=== PATIENT | female | born 1995 | race Caucasian/White ===

== ENCOUNTER 2017-02-12 18:46 | Observation (INO) | payer OTHER ==
[2017-02-12] MEDS ORDERED: SODIUM CHLORIDE 0.9% 500 ML IV STA (19:24)
--- NOTE | 2017-02-12 19:40 | ED ---
Chest Pain HPI <Jose Luis Saravia - Last Filed: 02/12/17 21:33> - General Source: patient Mode of arrival: wheelchair Limitations: no limitations <Jesica Morrison - Last Filed: 02/13/17 03:37> - General Chief Complaint: Chest Pain Stated Complaint: chest pain, heavy heartbeat Time Seen by Provider: 02/12/17 19:00 - History of Present Illness Initial Comments: 21-year-old female patient with a history of diabetes mellitus and hypertension with noncompliance presents to emergency department today for complaints of intermittent chest pain. Patient states that today while at work around 5 PM she had an episode of sharp chest pain in the center of her chest, states that it felt like her heart was racing and skipping a beat while the pain was present. She denies any radiation of the pain to her neck, back, or jaw. She states that after that she felt very weak and tired. States that her legs felt like jelly. She states since then she feels like she has been in a fog, and her legs continue to feel weaker than usual. She states that she has had intermittent sharp chest pain since then, worse when taking a deep breath. She states that she felt short of breath during the episode however feels that has resolved. She denies any dizziness or blurred vision. States that she felt like her left arm was more weak than her right arm. She denies any nausea, vomiting, or sweats with this. She states that she has had nasal congestion and drainage for the last few days however denies any cough, fevers, or sore throat. Patient denies any recent rash, abdominal pain, diarrhea, constipation , back pain, numbness, tingling, dizziness, weakness, hematuria, dysuria, urinary urgency, urinary frequency, headache, visual changes, or any other complaints. (Jesica Morrison) - Related Data Home Medications Medication Instructions Recorded Confirmed Ibuprofen [Motrin] 800 mg PO Q6H PRN 10/14/15 02/12/17 Allergies Allergy/AdvReac Type Severity Reaction Status Date / Time No Known Allergies Allergy Verified 02/12/17 22:13 Review of Systems ROS Other: All systems not noted in ROS Statement are negative. <Jose Luis Saravia - Last Filed: 02/12/17 21:33> ROS Other: All systems not noted in ROS Statement are negative. <rGegorio Morrisonina Cher - Last Filed: 02/13/17 03:37> ROS Statement: Those systems with pertinent positive or pertinent negative responses have been documented in the HPI. EKG Findings - EKG Comments: EKG Findings:: EKG obtained at 1858 shows sinus tachycardia with possible left atrial enlargement. Ventricular rate is 111, RI interval is 138, QRS duration is 88, QT 344, QTc 467. No evidence of ST elevation or depression. <PrinceGregorioJesica M - Last Filed: 02/13/17 03:37> Past Medical History Past Medical History: Diabetes Mellitus, Hypertension History of Any Multi-Drug Resistant Organisms: None Reported Past Surgical History: No Surgical Hx Reported Past Psychological History: No Psychological Hx Reported Smoking Status: Never smoker Past Alcohol Use History: None Reported Past Drug Use History: None Reported - Past Family History Mother Additional Family Medical History / Comment(s): Colotis, cirrosis of liver, chrones Father Family Medical History: Hypertension <PrinceJesica M - Last Filed: 02/13/17 03:37> General Exam Limitations: no limitations General appearance: alert, in no apparent distress, other (This is a well- developed morbidly obese female patient in no acute distress. Vital signs upon presentation are temperature 98.7F, pulse 110, respirations 18, blood pressure 206/131, pulse ox 100% on room air.) Eye exam: Present: normal appearance, PERRL, EOMI. Absent: scleral icterus, conjunctival injection, nystagmus, periorbital swelling ENT exam: Present: normal exam, normal oropharynx, mucous membranes moist, TM's normal bilaterally Neck exam: Present: normal inspection. Absent: tenderness, meningismus, lymphadenopathy Respiratory exam: Present: normal lung sounds bilaterally. 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 Walton, who will admit for hospital call. He does recommend cardiology consult. Blood pressure will need to be further controlled. (Jose Luis Saravia) Chest Pain MDM <Jose Luis Saravia - Last Filed: 02/12/17 21:33> <Jesica Morrison - Last Filed: 02/13/17 03:37> - [facility] Radiology: Two-view x-ray of the chest shows a heart and mediastinum are normal. Lungs are clear. Diaphragm is normal. There are chest leads. Impression by Dr. Meade shows normal chest. Medical decision makin-year-old female patient who is noncompliant with her hypertension medications and diabetes medications presents to emergency department today for complaints of chest pain, shortness of breath, and generalized weakness. EKG showed sinus tachycardia. Labs reviewed and were unremarkable other than blood glucose of 204. She also had mildly elevated transaminases. Urinalysis showed a cloudy appearance with 3+ protein, 2+ glucose, 1+ ketones, trace blood, small leukocyte esterase, 8 white blood cells , 19 squamous epithelial cells, few bacteria, and rare mucous, this has been sent for culture. Urine hCG was negative. Urine drug screen was negative. As patient does have risk factors and significantly elevated blood pressure here in the department she will be admitted for observation. My attending Dr. Saravia did speak to Dr. Walton who accepts patient at this time and requests a cardiology consult. We will order Vasotec for elevated blood pressure as needed and monitor blood glucose before meals and at bedtime. (Jesica Morrison) Disposition <Jose Luis Saravia - Last Filed: 02/12/17 21:33> Decision to Admit Reason: Admit from EC Decision Date: 02/12/17 Decision Time: 21:39 <Jesica Morrison - Last Filed: 02/13/17 03:37> Clinical Impression: Chest pain, Hypertension, Uncontrolled diabetes mellitus Disposition: ADMITTED IP TO THIS HOSP Condition: Serious
[2017-02-12 20:01] LABS: Basophils % (A) 1 %; CH 30.2; CHCM 34.3; Eosinophils # (A) 0.1 k/uL (0-0.7); Eosinophils % (A) 2 %; HCT 39.2 % (34.0-46.0); HDW 2.94; HGB 13.5 gm/dL (11.4-16.0); Luc # (Auto) 0.09; Luc % (Auto) 1; Lymphocytes # (A) 2.1 k/uL (1.0-4.8); Lymphocytes % (A) 32 %; MCH 30.4 pg (25.0-35.0); MCHC 34.4 g/dL (31.0-37.0); MCV 88.4 fL (80.0-100.0); Mean Platelet Volume 7.5; Monocytes # (A) 0.3 k/uL (0-1.0); Monocytes % (A) 5 %; Neutrophils # (A) 3.9 k/uL (1.3-7.7); Neutrophils % (A) 60 %; RBC 4.43 m/uL (3.80-5.40); RDW 15.4 % (11.5-15.5); WBC 6.5 k/uL (3.8-10.6); WBC (Perox) 6.41
[2017-02-12 20:09] LABS: Glucose,Whole Blood 197 mg/dL (75-99)
[2017-02-12 20:12] LABS: ALT 59 U/L (9-52); AST 43 U/L (14-36); Alkaline Phosphatase 60 U/L (38-126); Anion Gap 17 mmol/L; Blood Urea Nitrogen 16 mg/dL (7-17); Calcium 10.3 mg/dL (8.4-10.2); Carbon Dioxide 19 mmol/L (22-30); Chloride 100 mmol/L (98-107); Glucose 204 mg/dL (74-99); Magnesium 1.5 mg/dL (1.6-2.3); Non-African American GFR(MDRD) >60 (>60 ml/min/1.73 sqM); Potassium 4.2 mmol/L (3.5-5.1); Sodium 136 mmol/L (137-145); Total Bilirubin 0.3 mg/dL (0.2-1.3); Total Protein 8.1 g/dL (6.3-8.2)
[2017-02-12 20:15] LABS: Partial Thromboplastin Time 23.1 sec (22.0-30.0); Prothrombin Time 9.8 sec (9.0-12.0)
[2017-02-12 20:21] LABS: Appearance,Urine Cloudy (Clear); Bacteria,Urine Few /hpf; Bilirubin,Urine Negative (Negative); Glucose,Urine (UA) 2+ (Negative); Ketones,Urine 1+ (Negative); Leukocyte Esterase,Urine Small (Negative); Mucus,Urine Rare /hpf; Nitrite,Urine Negative (Negative); PH, Urine 5.5 (5.0-8.0); Particle Count 26044; Protein,Urine 3+ (Negative); RBC,Urine 1 /hpf (0-5); Specific Gravity,Urine 1.029 (1.001-1.035); Squamous Epithelial Cell,Urine 19 /hpf (0-4); UA Billing (MACRO vs. MICRO) MICRO; WBC,Urine 8 /hpf (0-5)
[2017-02-12 20:27] LABS: Creatine Kinase MB 2.3 ng/mL (0.0-2.4); Troponin I 0.012 ng/mL (0.000-0.034)
--- NOTE | 2017-02-12 20:52 | XR ---
EXAMINATION TYPE: XR chest 2V DATE OF EXAM: 02/12/2017 COMPARISON: NONE HISTORY: Chest pain TECHNIQUE: Frontal and lateral views of the chest are obtained. FINDINGS: Heart and mediastinum are normal. Lungs are clear. Diaphragm is normal. There are chest le ads. IMPRESSION: Normal chest
[2017-02-12] MEDS ORDERED: LABETALOL 5 MG/ML VIAL MDV IVP STA (21:07)
[2017-02-12] MEDS ORDERED: NITROGLYCERIN OINT 1 INCH/GM PACKET TOPICAL STA (21:27)
[2017-02-12] MEDS ORDERED: NALOXONE 0.4 MG/ML 1 ML VIAL IV PRN (21:32)
[2017-02-12] MEDS ORDERED: ENALAPRILAT 1.25 MG/ML 1 ML VIAL IVP PRN (21:39)
[2017-02-12 22:26] VITALS: BMI 53.4
[2017-02-13] MEDS: ACETAMINOPHEN TAB 325 MG TAB PO PRN ×2 (00:21→09:09)
[2017-02-13] MEDS ORDERED: LOSARTAN 50 MG TAB PO SCH (09:00)
[2017-02-13] MEDS ORDERED: MAGNESIUM SULFATE-D5W PMX 1 GM in DEXTROSE/WATER 1 100ML.BAG IVPB ONE (09:00)
--- NOTE | 2017-02-13 10:35 | HP ---
HISTORY AND PHYSICAL CHIEF COMPLAINT: A 21-year-old white female with a history of diabetes mellitus, hypertension, noncompliance presents to the emergency room with intermittent chest pain. She has some chest pain in the center of her chest, heart races, skipping a beat , very weak and tired, legs felt like jelly. She has been confused and in a fog since this time. She has came to the ER to rule out myocardial infarction or PE. Denied any dysuria, frequency, urgency, hesitancy, headaches, visual changes, etc. HOME MEDICINES: Include ibuprofen. ALLERGIES: No known drug allergies Fourteen-point review of systems negative except for mentioned in HPI. EKG is sinus rhythm. PAST MEDICAL HISTORY: Diabetes mellitus, hypertension. SOCIAL HISTORY: No smoking. No illicit drugs. FAMILY HISTORY: Mother with cirrhosis of liver, colitis. Father with hypertension. PHYSICAL EXAM: Pulse rate 104 to 110, temp 98.7, respiratory 18 to 22, blood pressures were 200s over 100s in the ER, temp 97.8, pulse is 92, respiratory rate 18. ASSESSMENT: Hypertension acceleration, uncontrolled. Cardiology consult for this. Will rule out myocardial infarction. She has diabetes mellitus, untreated. Would look at that. Urine drug screen was negative. test was negative. Vasotec for elevated hypertension. Please see further orders. MMODL / IJN: [id number] /
[2017-02-13 10:57] LABS: ALT 49 U/L (9-52); AST 37 U/L (14-36); Alkaline Phosphatase 47 U/L (38-126); Anion Gap 17 mmol/L; Blood Urea Nitrogen 13 mg/dL (7-17); Calcium 9.5 mg/dL (8.4-10.2); Carbon Dioxide 18 mmol/L (22-30); Chloride 99 mmol/L (98-107); Glucose 351 mg/dL (74-99); Non-African American GFR(MDRD) >60 (>60 ml/min/1.73 sqM); Potassium 4.3 mmol/L (3.5-5.1); Sodium 134 mmol/L (137-145); Total Bilirubin 0.4 mg/dL (0.2-1.3)
[2017-02-13 11:46] VITALS: RESP 18; TEMP 97.9
[2017-02-13 12:01] LABS: Glucose,Whole Blood 275 mg/dL (75-99)
--- NOTE | 2017-02-13 15:41 | CONS ---
CONSULTATION Mariya Nunez is a 21-year-old lady who carries a diagnosis of type 2 diabetes mellitus, but has not been compliant with medications, does not see her physician on a regular basis. She works in the [employer] and yesterday she was working and it was quite busy and then she had a sudden feeling of some numbness in her left hand and she felt weak, then she felt short-winded, felt exhausted and then did not have any strength in her legs and then came into the hospital. She is resting comfortably at the time of my evaluation. She denies any chest pain. Her blood sugars have been elevated, but there was another issue when she came in. She was quite hypertensive and the blood pressure has improved remarkably. She is resting comfortably without symptoms. Denies any chest pain, shortness of breath, or palpitation. Her feeling of numbness in the left arm and lack of strength has all resolved completely. She feels quite well at this time. PAST MEDICAL HISTORY: 1. Obesity. 2. Type 2 diabetes. 3. History of noncompliance. 4. She is not a smoker and she and does not consume alcohol or use any recreational drugs. MEDICATIONS: At home, she has not taken any metformin even though she was prescribed. She takes ibuprofen p.r.n. ALLERGIES: None. REVIEW OF SYSTEMS: Unremarkable, other than the above-mentioned facts. EKG revealed a sinus mechanism with sinus tachycardia. No acute changes. Left atrial abnormality was noted. LABORATORY DATA: Revealed normal troponins. PHYSICAL EXAMINATION: Blood pressure is 160/84, pulse rate is 70 per minute, regular. HEENT: Unremarkable. Fundus was not examined by me. Neck is supple. There is no JVD. I do not hear a carotid bruit. Heart exam reveals S1, S2 heard normally without a rub, murmur or gallop. Lungs are clear. Abdomen is soft, nontender. Lower extremities reveal normal pulses, no edema. Central nervous system is normal. EKG revealed a sinus mechanism, no acute changes. Left atrial abnormality noted. IMPRESSION: 1. Uncontrolled hypertension. 2. Diabetes. 3. Obesity. 4. Nondescript atypical left arm numbness that has resolved. RECOMMENDATION: I am recommending that we initiate her on losartan 50 mg daily. Advised to supplement Mg intravenously. Advised low-salt diet and I advised her to be compliant with medications. Based on how she does and if her blood pressure control has improved, she can potentially be discharged later on today. Thank you very much for the consult. ORTIZ / AMIN: [id number] / CASSANDRA
[2017-02-13 15:49] VITALS: BP 185/101; PULSE 94
--- NOTE | 2017-02-13 17:32 | DS ---
DISCHARGE SUMMARY DISCHARGE DIAGNOSES: 1. Diabetes mellitus. 2. Hypertension acceleration. 3. Atypical chest pain. DISCHARGE MEDICATIONS: 1. Metformin 500 one daily. 2. Cozaar 50 mg 1 daily. CONDITION: Stable. PROGNOSIS: Guarded. Ambulate as tolerated. HOSPITAL COURSE OF EVENTS: A 21-year-old, white female, with chest pain, hypertension, uncontrolled diabetes mellitus, is admitted. Diabetic control is discussed with the patient as well as hypertension control. She is cleared by [facility] for any cardiac involvement and can follow up as outpatient with the following medications as mentioned above being given. CONDITION: Stable. PROGNOSIS: Guarded. Ambulate as tolerated. MMODL / IJN: [id number] /
== END 2017-02-13 15:56 | disposition home or self-care (01) ==
LOC: EC 18:46 → 3OBS 21:44
PROVIDERS: ADMIT Family Medicine; ATTEND Family Medicine
DX: E11.65 Type 2 diabetes mellitus with hyperglycemia (principal); I10 Essential (primary) hypertension; R07.89 Other chest pain; R20.0 Anesthesia of skin; R41.0 Disorientation, unspecified; R00.0 Tachycardia, unspecified; R06.02 Shortness of breath; R74.0 Nonspecific elevation of levels of transaminase and lactic acid dehydrogenase [LDH]; R53.1 Weakness; R09.81 Nasal congestion; E66.01 Morbid (severe) obesity due to excess calories; Z68.43 Body mass index [BMI] 50.0-59.9, adult; Z91.14 Patient's other noncompliance with medication regimen
CPT/HCPCS: 99285; 96361 ×3; 96374; 96375; 36415; 93005; 85379; 80053 ×2; 84443; 82550; 82553; 83735; 84484; 85025; 85610; 85730; 81001; 81025; 80306; 87086; 83036; 71020; G0378 ×2; J3475

== ENCOUNTER 2017-03-03 | Emergency (ER) | payer OTHER ==
[2017-03-03] MEDS ORDERED: KETOROLAC 60 MG/2 ML VIAL ONE (01:05)
[2017-03-03] MEDS ORDERED: Acetaminophen-Codeine 300-30mg TAB ONE (01:05)
--- NOTE | 2017-03-03 06:27 | XR ---
EXAM: XR Lumbar Spine, 5 Views CLINICAL HISTORY: Pain. TECHNIQUE: Frontal, lateral and oblique views of the lumbar spine. COMPARISON: No relevant prior studies available. FINDINGS: Vertebrae: No evidence of acute fracture of the lumbar spine. Normal lumbar alignment. Disc spaces: No acute findings. No significant narrowing. Soft tissues: Unremarkable as visualized. IMPRESSION: No evidence of acute fracture or malalignment of the lumbar spine.
== END 2017-03-03 02:23 | disposition home or self-care (01) ==
LOC: EC
DX: S30.0XXA Contusion of lower back and pelvis, initial encounter (principal); E11.9 Type 2 diabetes mellitus without complications; I10 Essential (primary) hypertension; Z79.84 Long term (current) use of oral hypoglycemic drugs; Z79.899 Other long term (current) drug therapy; W22.8XXA Striking against or struck by other objects, initial encounter
CPT/HCPCS: 72110; 96372; 99283

== ENCOUNTER 2017-03-05 02:20 | Emergency (ER) | payer OTHER ==
[2017-03-05 02:27] VITALS: BP 172/105; PULSE 93; RESP 16; TEMP 100.3
[2017-03-05] MEDS ORDERED: CYCLOBENZAPRINE 10MG STARTER 3 TAB BTL PO STA (02:37)
--- NOTE | 2017-03-05 02:37 | ED ---
General Adult HPI - General Chief complaint: Back Pain/Injury Stated complaint: back pain Time Seen by Provider: 03/05/17 02:27 Source: patient, RN notes reviewed Mode of arrival: ambulatory Limitations: no limitations - History of Present Illness Initial comments: 21-year-old female presents emergency Department chief complaint of back pain. She had a fall a few days ago she was admitted and x-ray she's been taking Tylenol threes however they have been hurting her abdomen. She states it just feels like she's cramping and tightness in her back. Patient states that she did not have any new injury. He denies any fever chills cough cold symptoms with this. They were concerned due to the continued pain she thought maybe there is something else that would help her feel better. The chest pain she had when she first came in. She states it almost feels like there is a tightness in her back and when she stretches it feels as if it's pulling. Patient denies any recent fever, chills, shortness of breath, chest pain, abdominal pain, nausea vomiting, numbness or tingling, dysuria or hematuria, constipation or diarrhea, headaches or visual changes, or any other current symptoms. - Related Data Home Medications Medication Instructions Recorded Confirmed Ibuprofen [Motrin] 800 mg PO Q6H PRN 10/14/15 02/12/17 Allergies Allergy/AdvReac Type Severity Reaction Status Date / Time No Known Allergies Allergy Verified 03/05/17 02:27 Review of Systems ROS Statement: Those systems with pertinent positive or pertinent negative responses have been documented in the HPI. ROS Other: All systems not noted in ROS Statement are negative. Past Medical History Past Medical History: Diabetes Mellitus, Hypertension History of Any Multi-Drug Resistant Organisms: None Reported Past Surgical History: No Surgical Hx Reported Additional Past Surgical History / Comment(s): Adnoids removed Past Anesthesia/Blood Transfusion Reactions: No Reported Reaction Past Psychological History: No Psychological Hx Reported Smoking Status: Never smoker Past Alcohol Use History: None Reported Past Drug Use History: None Reported - Past Family History Mother Additional Family Medical History / Comment(s): Colotis, cirrosis of liver, chrones Father Family Medical History: Hypertension General Exam - General Exam Comments Initial Comments: General: The patient is awake and alert, in no distress, and does not appear acutely ill. Eye: Pupils are equal, round and reactive to light. Ears, nose, mouth and throat: There are moist mucous membranes. Neck: The neck is supple, there is no tenderness. Cardiovascular: There is a regular rate and rhythm. No murmur, rub or gallop is appreciated. Respiratory: Lungs are clear to auscultation, respirations are non-labored, breath sounds are equal. No wheezes, stridor, rales, or rhonchi. Gastrointestinal: Soft, non-distended, non-tender abdomen without masses or organomegaly noted. There is no rebound or guarding present. No CVA tenderness. Bowel sounds are unremarkable. Back: There is no tenderness to palpation in the midline. There is no obvious deformity. No rashes noted. Musculoskeletal: Normal ROM, no tenderness, There is no pedal edema. There is no calf tenderness or swelling. Sensation intact. Pulses equal bilaterally 2+. Neurological: CN II-XII intact, There are no obvious motor or sensory deficits. Coordination appears grossly intact. Speech is normal. Skin: Skin is warm and dry and no rashes or lesions are noted. Psychiatric: Cooperative, appropriate mood & affect, normal judgment. Limitations: no limitations Course Vital Signs 03/05/17 02:24 Temperature 100.3 F H Pulse Rate 93 Respiratory 16 Rate Blood Pressure 172/105 O2 Sat by Pulse 98 Oximetry Medical Decision Making - Medical Decision Making 21-year-old female presents emergency Department chief complaint of lumbar strain. This time with the patient muscle relaxers and we discussed exercises for home. We discussed follow-up return for hours all questions. Patient stated that she understood all questions have been answered. Patient will be discharged. Disposition Clinical Impression: Lumbar strain Disposition: HOME SELF-CARE Condition: Stable Instructions: Lower Back Exercises (ED), Low Back Strain (ED) Additional Instructions: Please use medication as discussed. Please follow up with family doctor if symptoms have not improved over the next two days. Please return to the emergency room if your symptoms increase or worsen or for any other concerns. Referrals: Yessenia Mustafa MD [Primary Care Provider] - 1-2 days Time of Disposition: 02:37
== END 2017-03-05 03:08 | disposition home or self-care (01) ==
LOC: EC 02:20
DX: S39.012A Strain of muscle, fascia and tendon of lower back, initial encounter (principal); W19.XXXA Unspecified fall, initial encounter; Y92.254 Theater (live) as the place of occurrence of the external cause
CPT/HCPCS: 99283

== ENCOUNTER 2018-04-23 18:15 | Emergency (ER) | payer OTHER ==
[2018-04-23] MEDS ORDERED: SODIUM CHLORIDE 0.9% 1,000 ML IV ONE (19:25)
[2018-04-23] MEDS ORDERED: LABETALOL 5 MG/ML VIAL MDV IVP STA ×2 (19:26→20:16)
--- NOTE | 2018-04-23 19:31 | ED ---
Female Urogenital HPI - General Source: patient Mode of arrival: ambulatory Limitations: no limitations <Jesica Morrison - Last Filed: 04/24/18 01:11> <Kary Kelly - Last Filed: 04/26/18 09:08> - General Chief complaint: Vaginal Bleeding Stated complaint: 6 wks preg/vaginal bleeding Time Seen by Provider: 04/23/18 19:09 - History of Present Illness Initial comments: 22-year-old female patient with past medical history significant for diabetes and high blood pressure, who is approximately 6 weeks presents to the emergency department today for evaluation of vaginal bleeding. Patient states the bleeding started this morning with small amounts of dark brown blood. Patient states that throughout the day it has increased to light pink in color with small blood clots. She denies any abdominal cramping or low back pain. She is . Has been receiving care at the [facility]. States she did have ultrasound on showing an intrauterine yolk sac. She denies any hematuria, dysuria, urinary frequency, urinary urgency. States she has been having some nausea but no vomiting. Patient states she did stop taking her blood pressure medication because she was unsure if it was safe in . Patient denies any recent rash, fever, chills, shortness breath, chest pain, diarrhea, constipation, back pain, numbness, tingling, dizziness, weakness, headache, visual changes, or any other complaints. (Jesica Morrison) - Related Data Home Medications Medication Instructions Recorded Confirmed metFORMIN HCL [Glucophage] 1,000 mg PO BID 04/23/18 04/23/18 Previous Rx's Medication Instructions Recorded Cephalexin [Keflex] 500 mg PO Q6H #28 cap 04/23/18 Metoprolol Tartrate [Lopressor] 25 mg PO DAILY #30 tablet 04/23/18 Allergies Allergy/AdvReac Type Severity Reaction Status Date / Time No Known Allergies Allergy Verified 04/23/18 19:27 Review of Systems ROS Other: All systems not noted in ROS Statement are negative. <Jesica Morrison - Last Filed: 04/24/18 01:11> ROS Other: All systems not noted in ROS Statement are negative. <Kary Kelly - Last Filed: 04/26/18 09:08> ROS Statement: Those systems with pertinent positive or pertinent negative responses have been documented in the HPI. Past Medical History Past Medical History: Diabetes Mellitus, Hypertension History of Any Multi-Drug Resistant Organisms: None Reported Past Surgical History: No Surgical Hx Reported Additional Past Surgical History / Comment(s): Adnoids removed Past Anesthesia/Blood Transfusion Reactions: No Reported Reaction Past Psychological History: No Psychological Hx Reported Smoking Status: Never smoker Past Alcohol Use History: None Reported Past Drug Use History: None Reported - Past Family History Mother Additional Family Medical History / Comment(s): Colotis, cirrosis of liver, chrones Father Family Medical History: Hypertension <Jesica Morrison M - Last Filed: 04/24/18 01:11> General Exam Limitations: no limitations General appearance: alert, in no apparent distress, other (Social well-developed , well-nourished adult female patient in no acute distress. Vital signs upon presentation are temperature 98.5F, pulse 101, respirations 18, blood pressure 185/106, pulse ox 98% on room air.) ENT exam: Present: normal exam, normal oropharynx, mucous membranes moist Respiratory exam: Present: normal lung sounds bilaterally. Absent: respiratory distress, wheezes, rales, rhonchi, stridor Cardiovascular Exam: Present: regular rate, normal rhythm, normal heart sounds. Absent: systolic murmur, diastolic murmur, rubs, gallop, clicks GI/Abdominal exam: Present: soft, normal bowel sounds. Absent: distended, tenderness, guarding, rebound, rigid External exam: Present: normal external exam Speculum exam: Present: vaginal bleeding (There is presence of dark red vaginal bleeding, mild, no clots), other (Cervical os is closed) By manual exam: Present: normal by manual exam Neurological exam: Present: alert, oriented X3, CN II-XII intact Psychiatric exam: Present: normal affect, normal mood Skin exam: Present: warm, dry, intact, normal color. Absent: rash <Jesica Morrison M - Last Filed: 04/24/18 01:11> Vital Signs 04/23/18 04/23/18 04/23/18 18:44 20:20 21:13 Temperature 98.5 F Pulse Rate 101 H 95 95 Respiratory 18 20 18 Rate Blood Pressure 185/106 170/108 152/98 O2 Sat by Pulse 98 97 97 Oximetry 04/23/18 21:50 Temperature 97.8 F Pulse Rate 94 Respiratory 18 Rate Blood Pressure 151/96 O2 Sat by Pulse 96 Oximetry Medical Decision Making - Lab Data Result diagrams: 04/23/18 20:00 04/23/18 20:00 - Radiology Data Radiology results: report reviewed <Jesica Morrison - Last Filed: 04/24/18 01:11> - Lab Data Result diagrams: 04/23/18 20:00 04/23/18 20:00 <Kary Kelly - Last Filed: 04/26/18 09:08> - Medical Decision Making 22-year-old female patient presents to the emergency department today for evaluation of vaginal bleeding. Physical examination did reveal small amount of dark red bleeding on pelvic exam, cervical os closed. Labs reviewed and did reveal HCG level is 5361, urine shows a cloudy appearance with 2+ protein, 1+ ketones, large amount of blood, 11 white blood cells, greater than 182 red blood cells, 10 squamous epithelial cells, occasional bacteria, rare mucous, rare yeast. Ultrasound did show a viable intrauterine measuring 6 weeks 3 days with a heart rate of 152. I did discuss possibility of threatened miscarriage with the patient. Patient was discharged home at this time to follow-up with the [facility] for recheck as soon as possible. Return parameters were discussed in detail. She verbalizes understanding and agrees with this plan. (Jesica Morrison) I was available for consultation in the emergency department. The history and physical exam were done by the midlevel provider. I was consulted for this patient's care. I reviewed the case with the midlevel provider and based on their presentation of the patient, I agree with the assessment, medical decision making and plan of care as documented. (Kary Kelly) - Lab Data Lab Results 04/23/18 04/23/18 04/23/18 Range/Units 20:00 20:00 20:00 WBC 8.9 (3.8-10.6) k/uL RBC 4.54 (3.80-5.40) m/uL Hgb 13.4 (11.4-16.0) gm/dL Hct 40.8 (34.0-46.0) % MCV 89.8 (80.0-100.0) fL MCH 29.5 (25.0-35.0) pg MCHC 32.8 (31.0-37.0) g/dL RDW 15.7 H (11.5-15.5) % Plt Count 272 (150-450) k/uL Neutrophils % 65 % Lymphocytes % 28 % Monocytes % 4 % Eosinophils % 2 % Basophils % 0 % Neutrophils # 5.8 (1.3-7.7) k/uL Lymphocytes # 2.5 (1.0-4.8) k/uL Monocytes # 0.3 (0-1.0) k/uL Eosinophils # 0.1 (0-0.7) k/uL Basophils # 0.0 (0-0.2) k/uL PT (9.0-12.0) sec INR (<1.2) APTT (22.0-30.0) sec Sodium 136 L (137-145) mmol/L Potassium 4.3 (3.5-5.1) mmol/L Chloride 103 (98-107) mmol/L Carbon Dioxide 19 L (22-30) mmol/L Anion Gap 14 mmol/L BUN 11 (7-17) mg/dL Creatinine 0.46 L (0.52-1.04) mg/dL Est GFR (CKD-EPI)AfAm >90 (>60 ml/min/1.73 sqM) Est GFR (CKD-EPI)NonAf >90 (>60 ml/min/1.73 sqM) Glucose 125 H (74-99) mg/dL Calcium 9.9 (8.4-10.2) mg/dL Total Bilirubin 0.5 (0.2-1.3) mg/dL AST 36 (14-36) U/L ALT 43 (9-52) U/L Alkaline Phosphatase 45 (38-126) U/L Total Protein 7.4 (6.3-8.2) g/dL Albumin 4.3 (3.5-5.0) g/dL HCG, Quant 5361.5 mIU/mL Urine Color Urine Appearance (Clear) Urine pH (5.0-8.0) Ur Specific Walden (1.001-1.035) Urine Protein (Negative) Urine Glucose (UA) (Negative) Urine Ketones (Negative) Urine Blood (Negative) Urine Nitrite (Negative) Urine Bilirubin (Negative) Urine Urobilinogen (<2.0) mg/dL Ur Leukocyte Esterase (Negative) Urine RBC (0-5) /hpf Urine WBC (0-5) /hpf Ur Squamous Epith Cells (0-4) /hpf Urine Bacteria (None) /hpf Urine Mucus (None) /hpf Urine Yeast (Budding) (None) /hpf Blood Type A Positive Blood Type Recheck 04/23/18 04/23/18 Range/Units 20:00 20:00 WBC (3.8-10.6) k/uL RBC (3.80-5.40) m/uL Hgb (11.4-16.0) gm/dL Hct (34.0-46.0) % MCV (80.0-100.0) fL MCH (25.0-35.0) pg MCHC (31.0-37.0) g/dL RDW (11.5-15.5) % Plt Count (150-450) k/uL Neutrophils % % Lymphocytes % % Monocytes % % Eosinophils % % Basophils % % Neutrophils # (1.3-7.7) k/uL Lymphocytes # (1.0-4.8) k/uL Monocytes # (0-1.0) k/uL Eosinophils # (0-0.7) k/uL Basophils # (0-0.2) k/uL PT 9.4 (9.0-12.0) sec INR 0.8 (<1.2) APTT 22.1 (22.0-30.0) sec Sodium (137-145) mmol/L Potassium (3.5-5.1) mmol/L Chloride (98-107) mmol/L Carbon Dioxide (22-30) mmol/L Anion Gap mmol/L BUN (7-17) mg/dL Creatinine (0.52-1.04) mg/dL Est GFR (CKD-EPI)AfAm (>60 ml/min/1.73 sqM) Est GFR (CKD-EPI)NonAf (>60 ml/min/1.73 sqM) Glucose (74-99) mg/dL Calcium (8.4-10.2) mg/dL Total Bilirubin (0.2-1.3) mg/dL AST (14-36) U/L ALT (9-52) U/L Alkaline Phosphatase (38-126) U/L Total Protein (6.3-8.2) g/dL Albumin (3.5-5.0) g/dL HCG, Quant mIU/mL Urine Color Light Red Urine Appearance Cloudy H (Clear) Urine pH 6.0 (5.0-8.0) Ur Specific [place] 1.024 (1.001-1.035) Urine Protein 2+ H (Negative) Urine Glucose (UA) Negative (Negative) Urine Ketones 1+ H (Negative) Urine Blood Large H (Negative) Urine Nitrite Negative (Negative) Urine Bilirubin Negative (Negative) Urine Urobilinogen <2.0 (<2.0) mg/dL Ur Leukocyte Esterase Negative (Negative) Urine RBC >182 H (0-5) /hpf Urine WBC 11 H (0-5) /hpf Ur Squamous Epith Cells 10 H (0-4) /hpf Urine Bacteria Occasional H (None) /hpf Urine Mucus Rare H (None) /hpf Urine Yeast (Budding) Rare H (None) /hpf Blood Type Blood Type Recheck - Radiology Data Transvaginal ultrasound of the fetus was obtained. Report was reviewed in its entirety. Impression by Dr. Meade shows ultrasound gestational age of 6 weeks 3 days. No complicating process seen. Heart rate 152, rhythm is regular. This is a viable intrauterine . (Jesica Morrison) Disposition Is patient prescribed a controlled substance at d/c from ED?: No Time of Disposition: 21:40 <Jesica Morrison - Last Filed: 04/24/18 01:11> <Kary Kelly - Last Filed: 04/26/18 09:08> Clinical Impression: Threatened miscarriage, Vaginal bleeding during , Hypertension, Asymptomatic bacteriuria Disposition: HOME SELF-CARE Condition: Good Instructions: Threatened Miscarriage (ED), First Trimester Vaginal Bleed (ED), Urinary Tract Infection in (ED) Additional Instructions: Increase fluids. Take medications as directed. Follow-up with your primary care physician for further evaluation. Blood pressure. Follow-up with [facility] for recheck as soon as possible. Return to the emergency department immediately for any new, worsening, or concerning symptoms. Prescriptions: Cephalexin [Keflex] 500 mg PO Q6H #28 cap Metoprolol Tartrate [Lopressor] 25 mg PO DAILY #30 tablet Referrals: Yessenia Mustafa MD [Primary Care Provider] - 1-2 days
[2018-04-23] MEDS ORDERED: LABETALOL SYRINGE 5 MG/ML IVP STA (20:22)
[2018-04-23 20:36] LABS: Appearance,Urine Cloudy (Clear); Bacteria,Urine Occasional /hpf; Bilirubin,Urine Negative (Negative); Blood,Urine Large (Negative); Budding Yeast,Urine Rare /hpf; Color,Urine Light Red; Glucose,Urine (UA) Negative (Negative); Ketones,Urine 1+ (Negative); Leukocyte Esterase,Urine Negative (Negative); Mucus,Urine Rare /hpf; Nitrite,Urine Negative (Negative); Protein,Urine 2+ (Negative); RBC,Urine >182 /hpf (0-5); Specific Gravity,Urine 1.024 (1.001-1.035); Squamous Epithelial Cell,Urine 10 /hpf (0-4); Urobilinogen,Urine <2.0 mg/dL (<2.0); WBC,Urine 11 /hpf (0-5)
[2018-04-23 20:38] LABS: INR 0.8 (<1.2); Partial Thromboplastin Time 22.1 sec (22.0-30.0); Prothrombin Time 9.4 sec (9.0-12.0)
[2018-04-23 20:45] LABS: Basophils % (A) 0 %; Eosinophils # (A) 0.1 k/uL (0-0.7); Eosinophils % (A) 2 %; HCT 40.8 % (34.0-46.0); HGB 13.4 gm/dL (11.4-16.0); Lymphocytes # (A) 2.5 k/uL (1.0-4.8); Lymphocytes % (A) 28 %; MCH 29.5 pg (25.0-35.0); MCHC 32.8 g/dL (31.0-37.0); MCV 89.8 fL (80.0-100.0); Mean Platelet Volume 6.6; Monocytes # (A) 0.3 k/uL (0-1.0); Monocytes % (A) 4 %; Neutrophils # (A) 5.8 k/uL (1.3-7.7); Neutrophils % (A) 65 %; Platelet Count 272 k/uL (150-450); RBC 4.54 m/uL (3.80-5.40); RDW 15.7 % (11.5-15.5); WBC 8.9 k/uL (3.8-10.6)
--- NOTE | 2018-04-23 20:59 | US ---
EXAMINATION TYPE: Transabdominal DATE OF EXAM: 07/20/17 COMPARISON: NONE CLINICAL HISTORY: Pain. EXAM PERFORMED: Transvaginal (TV) and Transabdominal (TA) EXAM MEASUREMENTS: GESTATIONAL AGE / DATING Physician Established: Not yet established Dates by LMP: LMP unknown Dates by First Scan: No previous this is first scan Dates by Current Scan for: (6 weeks/3 days) EDC: 12/14/2018 MATERNAL ANATOMY Uterus: 7.5 x 5.5 x 6.0 Right Ovary: 3.4 x 2.3 x 2.2cm Left Ovary: obscured by bowel gas Post CDS / Adnexa: wnl Presence of free fluid: no Presence of subchorionic bleed: no GESTATION / SURVEY CRL: 0.6cm ( 6 weeks/3 days) Yolk Sac (normal less than 6mm): 5mm Heart Rate: 152 bpm Rhythm: Normal IUP: Viable IUP Beta HcG (if available): Not available at this time IMPRESSION: Ultrasound gestational age is 6 weeks 3 days. No complicating process seen.
[2018-04-23 21:03] LABS: ALT 43 U/L (9-52); AST 36 U/L (14-36); Albumin 4.3 g/dL (3.5-5.0); Alkaline Phosphatase 45 U/L (38-126); Anion Gap 14 mmol/L; Blood Urea Nitrogen 11 mg/dL (7-17); Calcium 9.9 mg/dL (8.4-10.2); Carbon Dioxide 19 mmol/L (22-30); Chloride 103 mmol/L (98-107); Glucose 125 mg/dL (74-99); Potassium 4.3 mmol/L (3.5-5.1); Sodium 136 mmol/L (137-145); Total Bilirubin 0.5 mg/dL (0.2-1.3); Total Protein 7.4 g/dL (6.3-8.2)
[2018-04-23 21:14] VITALS: RESP 18
[2018-04-23 21:15] LABS: HCG,Quantitative Serum 5361.5 mIU/mL
[2018-04-23 21:58] VITALS: BP 151/96; PULSE 94; TEMP 97.8
== END 2018-04-23 21:50 | disposition home or self-care (01) ==
LOC: EC 18:15
DX: O20.0 Threatened abortion (principal); O10.011 Pre-existing essential hypertension complicating pregnancy, first trimester; O99.89 Other specified diseases and conditions complicating pregnancy, childbirth and the puerperium; R82.71 Bacteriuria; O24.311 Unspecified pre-existing diabetes mellitus in pregnancy, first trimester; Z3A.01 Less than 8 weeks gestation of pregnancy; Z79.84 Long term (current) use of oral hypoglycemic drugs
CPT/HCPCS: 36415; 76801; 76817; 80053; 81001; 84702; 85025; 85610; 85730; 86900; 86901; 87086; 96361; 96374; 99284

== ENCOUNTER 2018-04-28 18:35 | Emergency (ER) | payer OTHER ==
[2018-04-28 19:28] VITALS: TEMP 98.7
[2018-04-28] MEDS ORDERED: SODIUM CHLORIDE 0.9% 1,000 ML IV ONE (20:13)
[2018-04-28 20:30] LABS: Basophils % (A) 0 %; Eosinophils # (A) 0.1 k/uL (0-0.7); Eosinophils % (A) 1 %; HCT 37.1 % (34.0-46.0); HGB 12.8 gm/dL (11.4-16.0); Lymphocytes # (A) 2.5 k/uL (1.0-4.8); Lymphocytes % (A) 28 %; MCH 30.6 pg (25.0-35.0); MCHC 34.4 g/dL (31.0-37.0); MCV 88.8 fL (80.0-100.0); Mean Platelet Volume 6.4; Monocytes # (A) 0.2 k/uL (0-1.0); Monocytes % (A) 3 %; Neutrophils # (A) 5.7 k/uL (1.3-7.7); Neutrophils % (A) 65 %; Platelet Count 255 k/uL (150-450); RBC 4.17 m/uL (3.80-5.40); RDW 15.5 % (11.5-15.5); WBC 8.7 k/uL (3.8-10.6)
[2018-04-28 20:44] LABS: ALT 55 U/L (9-52); AST 48 U/L (14-36); Albumin 4.4 g/dL (3.5-5.0); Alkaline Phosphatase 41 U/L (38-126); Anion Gap 14 mmol/L; Blood Urea Nitrogen 6 mg/dL (7-17); Calcium 9.6 mg/dL (8.4-10.2); Carbon Dioxide 21 mmol/L (22-30); Chloride 104 mmol/L (98-107); Glucose 159 mg/dL (74-99); Potassium 3.9 mmol/L (3.5-5.1); Sodium 139 mmol/L (137-145); Total Bilirubin 0.4 mg/dL (0.2-1.3); Total Protein 7.8 g/dL (6.3-8.2)
--- NOTE | 2018-04-28 20:58 | US ---
EXAMINATION TYPE: Transabdominal DATE OF EXAM: 07/20/17 COMPARISON: NONE CLINICAL HISTORY: pain. Bleeding. EXAM PERFORMED: Transvaginal (TV) and Transabdominal (TA) EXAM MEASUREMENTS: GESTATIONAL AGE / DATING Physician Established: Not yet established Dates by LMP: LMP unknown Dates by First Scan: (6 weeks/3 days) EDC: 12/14/2018 Dates by Current Scan for: No IUP seen at this time MATERNAL ANATOMY Uterus: 8.5 x 5.0 x 45 cm. Post CDS / Adnexa: wnl Presence of free fluid: No Presence of corpus luteal cyst: No GESTATION / SURVEY IUP: No IUP seen at this time Beta HcG (if available): Not available at this time No IUP seen at this time. IMPRESSION: Empty uterus. No adnexal mass. No free fluid. Endometrium measures 7 mm.
[2018-04-28 21:00] LABS: HCG,Quantitative Serum 5049.5 mIU/mL
--- NOTE | 2018-04-28 22:22 | ED ---
General Adult HPI - General Chief complaint: Abdominal Pain Stated complaint: miscariage Time Seen by Provider: 04/28/18 19:55 Source: patient, RN notes reviewed Mode of arrival: ambulatory Limitations: no limitations - History of Present Illness Initial comments: 22-year-old female presents to the emergency department for a chief complaint of vaginal bleeding and cramping. Patient states she has been passing clots for the past hour. She states prior to this she is having vaginal spotting for the past few days. Patient states she is about 7 weeks' . Patient states she has not followed up with an DEPUTY MANAGER. Patient does admit to a history of hypertension and diabetes. 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 Patient denies any lightheadedness, chest pain, shortness of breath, dizziness, weakness. Patient has no other complaints at this time including shortness of breath, chest pain, nausea or vomiting, headache, or visual changes. - Related Data Home Medications Medication Instructions Recorded Confirmed metFORMIN HCL [Glucophage] 1,000 mg PO BID 04/23/18 04/28/18 Previous Rx's Medication Instructions Recorded Cephalexin [Keflex] 500 mg PO Q6H #28 cap 04/23/18 Metoprolol Tartrate [Lopressor] 25 mg PO DAILY #30 tablet 04/23/18 Allergies Allergy/AdvReac Type Severity Reaction Status Date / Time No Known Allergies Allergy Verified 04/28/18 21:25 Review of Systems ROS Statement: Those systems with pertinent positive or pertinent negative responses have been documented in the HPI. ROS Other: All systems not noted in ROS Statement are negative. Past Medical History Past Medical History: Diabetes Mellitus, Hypertension History of Any Multi-Drug Resistant Organisms: None Reported Past Surgical History: No Surgical Hx Reported Additional Past Surgical History / Comment(s): Adnoids removed Past Anesthesia/Blood Transfusion Reactions: No Reported Reaction Past Psychological History: No Psychological Hx Reported Smoking Status: Never smoker Past Alcohol Use History: None Reported Past Drug Use History: None Reported - Past Family History Mother Additional Family Medical History / Comment(s): Colotis, cirrosis of liver, chrones Father Family Medical History: Hypertension General Exam Limitations: no limitations General appearance: anxious (very upset, crying) Head exam: Present: atraumatic, normocephalic, normal inspection Eye exam: Present: normal appearance, PERRL, EOMI. Absent: scleral icterus, conjunctival injection, periorbital swelling ENT exam: Present: normal exam, mucous membranes moist Neck exam: Present: normal inspection, full ROM. Absent: tenderness, meningismus, lymphadenopathy Respiratory exam: Present: normal lung sounds bilaterally. Absent: respiratory distress, wheezes, rales, rhonchi, stridor Cardiovascular Exam: Present: regular rate, normal rhythm, normal heart sounds. Absent: systolic murmur, diastolic murmur, rubs, gallop, clicks GI/Abdominal exam: Present: soft, normal bowel sounds. Absent: distended, tenderness, guarding, rebound, rigid External exam: Present: normal external exam Speculum exam: Present: vaginal bleeding (clot noted in vaginal vault, mild bleeding) By manual exam: Present: normal by manual exam. Absent: cervical motion tenderness, adnexal tenderness, adnexal mass, uterine enlargement, uterine tenderness Neurological exam: Present: alert, oriented X3, CN II-XII intact Psychiatric exam: Present: anxious Skin exam: Present: warm, dry, intact, normal color. Absent: rash Course Vital Signs 04/28/18 19:25 Temperature 98.7 F Pulse Rate 90 Respiratory 18 Rate Blood Pressure 173/111 O2 Sat by Pulse 99 Oximetry Medical Decision Making - Medical Decision Making 22-year-old female presents for vaginal bleeding, patient 7 weeks . . This is patient's first . Patient states she is about 7 weeks' . She was seen here 5 days ago and had a confirmed IUP with a hCG Quant of 5300. Today patient presents concerned for miscarriage. Patient has been passing clots for the past hour prior to arrival and has been having spotting on and off for the past few days. Hemoglobin stable at 12.8, patient denies any symptoms of anemia. CMP unremarkable. HCG Quant at this time is trending downwards currently 5049. Repeat ultrasound shows an empty uterus, no adnexal mass or free fluid. Endometrium does measure [address] Queen spoke with Dr. Villeda for follow-up, recommends following up in his office tomorrow morning. Patient is hypertensive here in the emergency department with a blood pressure 166/106 on discharge. Patient is visibly upset, sobbing, likely related to distress. Patient was put on metoprolol last time she was here and will continue to take this. She will follow up with primary care for hypertension as well. - Lab Data Result diagrams: 04/28/18 20:13 04/28/18 20:13 Lab Results 04/28/18 04/28/18 04/28/18 Range/Units 20:13 20:13 20:18 WBC 8.7 (3.8-10.6) k/uL RBC 4.17 (3.80-5.40) m/uL Hgb 12.8 (11.4-16.0) gm/dL Hct 37.1 (34.0-46.0) % MCV 88.8 (80.0-100.0) fL MCH 30.6 (25.0-35.0) pg MCHC 34.4 (31.0-37.0) g/dL RDW 15.5 (11.5-15.5) % Plt Count 255 (150-450) k/uL Neutrophils % 65 % Lymphocytes % 28 % Monocytes % 3 % Eosinophils % 1 % Basophils % 0 % Neutrophils # 5.7 (1.3-7.7) k/uL Lymphocytes # 2.5 (1.0-4.8) k/uL Monocytes # 0.2 (0-1.0) k/uL Eosinophils # 0.1 (0-0.7) k/uL Basophils # 0.0 (0-0.2) k/uL Sodium 139 (137-145) mmol/L Potassium 3.9 (3.5-5.1) mmol/L Chloride 104 (98-107) mmol/L Carbon Dioxide 21 L (22-30) mmol/L Anion Gap 14 mmol/L BUN 6 L (7-17) mg/dL Creatinine 0.40 L (0.52-1.04) mg/dL Est GFR (CKD-EPI)AfAm >90 (>60 ml/min/1.73 sqM) Est GFR (CKD-EPI)NonAf >90 (>60 ml/min/1.73 sqM) Glucose 159 H (74-99) mg/dL Calcium 9.6 (8.4-10.2) mg/dL Total Bilirubin 0.4 (0.2-1.3) mg/dL AST 48 H (14-36) U/L ALT 55 H (9-52) U/L Alkaline Phosphatase 41 (38-126) U/L Total Protein 7.8 (6.3-8.2) g/dL Albumin 4.4 (3.5-5.0) g/dL HCG, Quant 5049.5 mIU/mL Blood Type A Positive Blood Type Recheck No Disposition Clinical Impression: Miscarriage Disposition: HOME SELF-CARE Condition: Good Instructions: Miscarriage (ED) Additional Instructions: Please follow up with Dr. Villeda tomorrow morning. Make sure to call the office. Follow-up with primary care in 1-2 days for blood pressure. Return if you have any worsening symptoms. Is patient prescribed a controlled substance at d/c from ED?: No Referrals: Yessenia Mustafa MD [Primary Care Provider] - 1-2 days Ryan Villeda MD [STAFF PHYSICIAN] - 1-2 days Time of Disposition: 22:23
[2018-04-28 22:44] LABS: Appearance,Urine Cloudy (Clear); Bacteria,Urine Few /hpf; Bilirubin,Urine Negative (Negative); Blood,Urine Large (Negative); Color,Urine Red; Glucose,Urine (UA) Negative (Negative); Ketones,Urine Negative (Negative); Leukocyte Esterase,Urine Moderate (Negative); Mucus,Urine Rare /hpf; Nitrite,Urine Negative (Negative); Protein,Urine 2+ (Negative); RBC,Urine >182 /hpf (0-5); Specific Gravity,Urine 1.013 (1.001-1.035); Urobilinogen,Urine <2.0 mg/dL (<2.0); WBC,Urine 16 /hpf (0-5)
[2018-04-28 22:45] VITALS: RESP 20
[2018-04-28 23:31] VITALS: BP 147/99; PULSE 92
== END 2018-04-28 23:31 | disposition home or self-care (01) ==
LOC: EC 18:35
DX: O03.9 Complete or unspecified spontaneous abortion without complication (principal); O10.911 Unspecified pre-existing hypertension complicating pregnancy, first trimester; O24.111 Pre-existing type 2 diabetes mellitus, in pregnancy, first trimester; E11.9 Type 2 diabetes mellitus without complications; Z79.84 Long term (current) use of oral hypoglycemic drugs; Z82.49 Family history of ischemic heart disease and other diseases of the circulatory system; Z3A.01 Less than 8 weeks gestation of pregnancy
CPT/HCPCS: 36415; 76801; 80053; 81001; 81025; 84702; 85025; 86900; 86901; 87086; 96360; 99284

== ENCOUNTER → 2018-05-26 | Outpatient (CLI) | payer OTHER ==
[2018-05-26 13:38] LABS: Basophils % (A) 0 %; Eosinophils # (A) 0.1 k/uL (0-0.7); Eosinophils % (A) 2 %; HCT 39.6 % (34.0-46.0); HGB 13.1 gm/dL (11.4-16.0); Lymphocytes # (A) 1.8 k/uL (1.0-4.8); Lymphocytes % (A) 31 %; MCH 29.6 pg (25.0-35.0); MCV 89.5 fL (80.0-100.0); Mean Platelet Volume 6.4; Monocytes # (A) 0.2 k/uL (0-1.0); Monocytes % (A) 4 %; Neutrophils # (A) 3.7 k/uL (1.3-7.7); Neutrophils % (A) 62 %; Platelet Count 274 k/uL (150-450); RBC 4.42 m/uL (3.80-5.40); WBC 5.9 k/uL (3.8-10.6)
[2018-05-26 19:13] LABS: Albumin 4.5 g/dL (3.80-4.90); Albumin/Globulin Ratio 1.88 (1.60-3.17); Anion Gap 11.2 mmol/L (4.00-12.00); Calcium 9.6 mg/dL (8.7-10.3); Carbon Dioxide 24.8 mmol/L (21.6-31.8); Globulin 2.4 g/dL (1.6-3.3); Potassium 4.5 mmol/L (3.5-5.5); Total Bilirubin 0.5 mg/dL (0.3-1.2); Total Protein 6.9 g/dL (6.2-8.2)
[2018-05-26 19:14] LABS: Hemoglobin A1C 7.1 % (4.0-6.0)
[2018-05-26 19:20] LABS: HCG,Quantitative Serum 3.1 mIU/mL
== END | disposition home or self-care (01) ==
LOC: LABWHC1 12:06
PROVIDERS: ATTEND Nurse Practitioner Family
DX: E11.65 Type 2 diabetes mellitus with hyperglycemia (principal)
CPT/HCPCS: 36415; 80053; 82306; 83036; 84443; 84702; 85025

== ENCOUNTER → 2018-06-03 | Outpatient (CLI) | payer OTHER | LOC: LABWHC1 12:50 | PROVIDERS: ATTEND Nurse Practitioner Family | DX: N91.2 Amenorrhea, unspecified (principal); Z32.01 Encounter for pregnancy test, result positive | CPT/HCPCS: 36415; 84702 ==

== ENCOUNTER 2018-07-29 16:56 | Emergency (ER) | payer OTHER ==
[2018-07-29 17:50] LABS: Anion Gap 13 mmol/L; Blood Urea Nitrogen 9 mg/dL (7-17); Calcium 10.2 mg/dL (8.4-10.2); Carbon Dioxide 21 mmol/L (22-30); Chloride 103 mmol/L (98-107); Glucose 135 mg/dL (74-99); Sodium 137 mmol/L (137-145)
[2018-07-29 17:57] LABS: Basophils % (A) 1 %; Eosinophils # (A) 0.1 k/uL (0-0.7); Eosinophils % (A) 2 %; HGB 13.1 gm/dL (11.4-16.0); Lymphocytes # (A) 1.9 k/uL (1.0-4.8); Lymphocytes % (A) 27 %; MCH 30.1 pg (25.0-35.0); MCHC 33.5 g/dL (31.0-37.0); Mean Platelet Volume 6.7; Monocytes # (A) 0.3 k/uL (0-1.0); Monocytes % (A) 5 %; Neutrophils # (A) 4.7 k/uL (1.3-7.7); Neutrophils % (A) 65 %; Platelet Count 271 k/uL (150-450); RBC 4.34 m/uL (3.80-5.40); RDW 14.9 % (11.5-15.5); WBC 7.2 k/uL (3.8-10.6)
[2018-07-29 17:59] LABS: Appearance,Urine Cloudy (Clear); Bacteria,Urine Occasional /hpf; Bilirubin,Urine Negative (Negative); Blood,Urine Negative (Negative); Color,Urine Yellow; Glucose,Urine (UA) Negative (Negative); Ketones,Urine 1+ (Negative); Leukocyte Esterase,Urine Negative (Negative); Mucus,Urine Rare /hpf; Nitrite,Urine Negative (Negative); PH, Urine 5.5 (5.0-8.0); Protein,Urine 1+ (Negative); RBC,Urine <1 /hpf (0-5); Specific Gravity,Urine 1.024 (1.001-1.035); Squamous Epithelial Cell,Urine 3 /hpf (0-4); Urobilinogen,Urine <2.0 mg/dL (<2.0)
[2018-07-29 18:07] LABS: HCG,Quantitative Serum 9.7 mIU/mL
--- NOTE | 2018-07-29 18:26 | US ---
EXAMINATION TYPE: Transabdominal DATE OF EXAM: 07/29/2018 6:02 PM COMPARISON: NONE CLINICAL HISTORY: llq pain, positive preg test. EXAM PERFORMED: EXAM MEASUREMENTS: GESTATIONAL AGE / DATING Physician Established: Not yet established Dates by LMP: (5 weeks/1 days) EDC: 03/30/19 Dates by First Scan: No previous this is first scan Dates by Current Scan for: No IUP seen at this time MATERNAL ANATOMY Patient 5'3", 289lbs, morbid obesity limits study. Uterus: 7.7 x 4.6 x 6.6cm Endometrium: 1.5cm Right Ovary: not visualized due to obesity and overlying bowel gas Left Ovary: not visualized due to obesity and overlying bowel gas Post CDS / Adnexa: somewhat limited visualization, appears wnl GESTATION / SURVEY IUP: No IUP seen at this time Date of LMP: 06/23/18 Beta HcG (if available): 9.7 IMPRESSION: No evidence of intrauterine gestational sac. No adnexal mass. Limited exam.
--- NOTE | 2018-07-29 19:44 | ED ---
Abdominal Pain HPI - General Chief Complaint: Abdominal Pain Stated Complaint: AND CRAMPING Time Seen by Provider: 07/29/18 17:07 Source: patient Mode of arrival: ambulatory Limitations: no limitations - History of Present Illness Initial Comments: The patient is a 22-year-old female who presents to the emergency department with complaints of left lower quadrant abdominal pain. She describes it as a cramping sensation. It started yesterday. The patient did take a test on Wednesday and it was positive. She is . Her last menstrual cycle was on June 23. States she did have a miscarriage on April 28 of this year. She sees Noemí Vargas at [facility]. States that this is where she wants to follow-up for this . There is no associated abnormal vaginal bleeding. No discharge. No concern for sexually transmitted infections. Denies any changes in her urination to include dysuria, hematuria or difficulty voiding. Denies any changes in her bowel movements to include diarrhea, constipation, melanotic stools or hematochezia. She is a diabetic and has history of high blood pressure. She has been taking her medications as directed. She also started taking a vitamin. Denies a history of IVF or previous ectopic . She denies nausea, vomiting, fevers or chills - Related Data Home Medications Medication Instructions Recorded Confirmed metFORMIN HCL [Glucophage] 1,000 mg PO BID 04/23/18 07/29/18 Labetalol [Trandate] 400 mg PO BID 07/29/18 07/29/18 Pnv No.95/Ferrous Fum/Folic AC 1 tab PO DAILY 07/29/18 07/29/18 [ Multivitamin Tablet] Allergies Allergy/AdvReac Type Severity Reaction Status Date / Time cephalexin [From Keflex] Allergy Rash/Hives Verified 07/29/18 17:55 Review of Systems ROS Statement: Those systems with pertinent positive or pertinent negative responses have been documented in the HPI. ROS Other: All systems not noted in ROS Statement are negative. Past Medical History Past Medical History: Diabetes Mellitus, Hypertension History of Any Multi-Drug Resistant Organisms: None Reported Past Surgical History: No Surgical Hx Reported Additional Past Surgical History / Comment(s): Adnoids removed Past Anesthesia/Blood Transfusion Reactions: No Reported Reaction Past Psychological History: No Psychological Hx Reported Smoking Status: Never smoker Past Alcohol Use History: None Reported Past Drug Use History: None Reported - Past Family History Mother Additional Family Medical History / Comment(s): Colotis, cirrosis of liver, chrones Father Family Medical History: Hypertension General Exam Limitations: no limitations General appearance: alert, in no apparent distress Head exam: Present: atraumatic, normocephalic, normal inspection Eye exam: Present: normal appearance, PERRL, EOMI. Absent: scleral icterus, conjunctival injection, periorbital swelling ENT exam: Present: normal exam, mucous membranes moist Neck exam: Present: normal inspection. Absent: tenderness, meningismus, lymp hadenopathy Respiratory exam: Present: normal lung sounds bilaterally. Absent: respiratory distress, wheezes, rales, rhonchi, stridor Cardiovascular Exam: Present: regular rate, normal rhythm, normal heart sounds. Absent: systolic murmur, diastolic murmur, rubs, gallop, clicks GI/Abdominal exam: Present: soft, normal bowel sounds, other (No tenderness is able to be elicited. No peritoneal signs to include rebound, guarding or rigidity. No flank or periumbilical ecchymoses). Absent: distended, tenderness, guarding, rebound, rigid Extremities exam: Present: normal inspection, full ROM, normal capillary refill. Absent: tenderness, pedal edema, joint swelling, calf tenderness Back exam: Present: normal inspection Neurological exam: Present: alert, oriented X3, CN II-XII intact Psychiatric exam: Present: normal affect, normal mood Skin exam: Present: warm, dry, intact, normal color. Absent: rash Course Vital Signs 07/29/18 07/29/18 16:58 19:55 Temperature 98.4 F 98.2 F Pulse Rate 102 H 91 Respiratory 20 16 Rate Blood Pressure 160/97 157/107 O2 Sat by Pulse 99 95 Oximetry Medical Decision Making - Medical Decision Making The patient was seen by myself. I did recommended laboratory studies as well as an ultrasound of the patient's uterus. She does provide a urine sample. Upon return results, I did discuss them with the patient. The patient presents with a positive test however no visible IUP on ultrasound. The patient's beta Quant is 9. It may represent a spontaneous miscarriage or of undetermined location. I did discuss this with the patient. I told the patient that she must follow-up for repeat blood work in 48 hours to ensure that her beta Quant is doubling. I do provide her with a prescription to come to the emergency department to have it drawn. She may also present on Wednesday to the outpatient lab. The results will be CC to her [employer]. She will need to have a repeat ultrasound performed. The patient understood as to the severity of her condition. If she has any new or worsening symptoms, she should return to the emergency room. Patient was in agreement treatment plan and discharged home in stable condition - Differential Diagnosis Spontaneous miscarriage, early , ectopic - Lab Data Result diagrams: 07/29/18 17:30 07/29/18 17:30 Lab Results 07/29/18 07/29/18 07/29/18 Range/Units 17:30 17:30 17:30 WBC 7.2 (3.8-10.6) k/uL RBC 4.34 (3.80-5.40) m/uL Hgb 13.1 (11.4-16.0) gm/dL Hct 39.0 (34.0-46.0) % MCV 90.0 (80.0-100.0) fL MCH 30.1 (25.0-35.0) pg MCHC 33.5 (31.0-37.0) g/dL RDW 14.9 (11.5-15.5) % Plt Count 271 (150-450) k/uL Neutrophils % 65 % Lymphocytes % 27 % Monocytes % 5 % Eosinophils % 2 % Basophils % 1 % Neutrophils # 4.7 (1.3-7.7) k/uL Lymphocytes # 1.9 (1.0-4.8) k/uL Monocytes # 0.3 (0-1.0) k/uL Eosinophils # 0.1 (0-0.7) k/uL Basophils # 0.0 (0-0.2) k/uL Sodium 137 (137-145) mmol/L Potassium 4.0 (3.5-5.1) mmol/L Chloride 103 (98-107) mmol/L Carbon Dioxide 21 L (22-30) mmol/L Anion Gap 13 mmol/L BUN 9 (7-17) mg/dL Creatinine 0.37 L (0.52-1.04) mg/dL Est GFR (CKD-EPI)AfAm >90 (>60 ml/min/1.73 sqM) Est GFR (CKD-EPI)NonAf >90 (>60 ml/min/1.73 sqM) Glucose 135 H (74-99) mg/dL Calcium 10.2 (8.4-10.2) mg/dL HCG, Quant 9.7 mIU/mL Urine Color Yellow Urine Appearance Cloudy H (Clear) Urine pH 5.5 (5.0-8.0) Ur Specific [place] 1.024 (1.001-1.035) Urine Protein 1+ H (Negative) Urine Glucose (UA) Negative (Negative) Urine Ketones 1+ H (Negative) Urine Blood Negative (Negative) Urine Nitrite Negative (Negative) Urine Bilirubin Negative (Negative) Urine Urobilinogen <2.0 (<2.0) mg/dL Ur Leukocyte Esterase Negative (Negative) Urine RBC <1 (0-5) /hpf Urine WBC 1 (0-5) /hpf Ur Squamous Epith Cells 3 (0-4) /hpf Urine Bacteria Occasional H (None) /hpf Urine Mucus Rare H (None) /hpf Blood Type Blood Type Recheck 07/29/18 Range/Units 17:30 WBC (3.8-10.6) k/uL RBC (3.80-5.40) m/uL Hgb (11.4-16.0) gm/dL Hct (34.0-46.0) % MCV (80.0-100.0) fL MCH (25.0-35.0) pg MCHC (31.0-37.0) g/dL RDW (11.5-15.5) % Plt Count (150-450) k/uL Neutrophils % % Lymphocytes % % Monocytes % % Eosinophils % % Basophils % % Neutrophils # (1.3-7.7) k/uL Lymphocytes # (1.0-4.8) k/uL Monocytes # (0-1.0) k/uL Eosinophils # (0-0.7) k/uL Basophils # (0-0.2) k/uL Sodium (137-145) mmol/L Potassium (3.5-5.1) mmol/L Chloride (98-107) mmol/L Carbon Dioxide (22-30) mmol/L Anion Gap mmol/L BUN (7-17) mg/dL Creatinine (0.52-1.04) mg/dL Est GFR (CKD-EPI)AfAm (>60 ml/min/1.73 sqM) Est GFR (CKD-EPI)NonAf (>60 ml/min/1.73 sqM) Glucose (74-99) mg/dL Calcium (8.4-10.2) mg/dL HCG, Quant mIU/mL Urine Color Urine Appearance (Clear) Urine pH (5.0-8.0) Ur Specific [place] (1.001-1.035) Urine Protein (Negative) Urine Glucose (UA) (Negative) Urine Ketones (Negative) Urine Blood (Negative) Urine Nitrite (Negative) Urine Bilirubin (Negative) Urine Urobilinogen (<2.0) mg/dL Ur Leukocyte Esterase (Negative) Urine RBC (0-5) /hpf Urine WBC (0-5) /hpf Ur Squamous Epith Cells (0-4) /hpf Urine Bacteria (None) /hpf Urine Mucus (None) /hpf Blood Type A Positive Blood Type Recheck [facility] ONLY Disposition Clinical Impression: of unknown anatomic location Disposition: HOME SELF-CARE Condition: Good Instructions (If sedation given, give patient instructions): Ectopic (DC) Additional Instructions: Follow-up with your OB in 2 days. Please either bring your blood work prescription into the emergency department on Wednesday to have your blood drawn or presents to the outpatient lab on Wednesday. It is important that you have your blood drawn on either of these 2 days. You'll need a repeat ultrasound as well as you do test positive for but of undetermined location. Return to the emergency room for any new or worsening symptoms Is patient prescribed a controlled substance at d/c from ED?: No Referrals: Yessenia Mustafa MD [Primary Care Provider] - 1-2 days Time of Disposition: 19:43
[2018-07-29 19:57] VITALS: BP 157/107; PULSE 91; RESP 16; TEMP 98.2
== END 2018-07-29 20:05 | disposition home or self-care (01) ==
LOC: EC 16:56
DX: O26.891 Other specified pregnancy related conditions, first trimester (principal); R10.32 Left lower quadrant pain; Z3A.01 Less than 8 weeks gestation of pregnancy; E11.9 Type 2 diabetes mellitus without complications; O16.1 Unspecified maternal hypertension, first trimester; O99.281 Endocrine, nutritional and metabolic diseases complicating pregnancy, first trimester; Z79.84 Long term (current) use of oral hypoglycemic drugs; Z79.899 Other long term (current) drug therapy; Z88.1 Allergy status to other antibiotic agents
CPT/HCPCS: 36415; 76801; 76817; 80048; 81001; 84702; 85025; 86900; 86901; 99284

== ENCOUNTER → 2018-07-31 | Outpatient (CLI) | payer OTHER | END | disposition home or self-care (01) | LOC: LABMAIN 11:05 | PROVIDERS: ATTEND Emergency Medicine | DX: O20.0 Threatened abortion (principal) | CPT/HCPCS: 36415; 84702 ==

== ENCOUNTER → 2018-08-04 | Outpatient (CLI) | payer OTHER ==
[2018-08-04 11:40] LABS: Basophils % (A) 0 %; Eosinophils # (A) 0.1 k/uL (0-0.7); Eosinophils % (A) 2 %; HCT 37.9 % (34.0-46.0); HGB 12.9 gm/dL (11.4-16.0); Lymphocytes # (A) 1.7 k/uL (1.0-4.8); Lymphocytes % (A) 29 %; MCH 30.5 pg (25.0-35.0); MCV 89.8 fL (80.0-100.0); Mean Platelet Volume 7.4; Monocytes # (A) 0.3 k/uL (0-1.0); Monocytes % (A) 5 %; Neutrophils # (A) 3.6 k/uL (1.3-7.7); Neutrophils % (A) 63 %; Platelet Count 264 k/uL (150-450); RBC 4.22 m/uL (3.80-5.40); RDW 15.5 % (11.5-15.5); WBC 5.8 k/uL (3.8-10.6)
[2018-08-04 16:27] LABS: HCG,Quantitative Serum 29.4 mIU/mL
[2018-08-04 16:29] LABS: Albumin 4.5 g/dL (3.80-4.90); Albumin/Globulin Ratio 1.96 (1.60-3.17); Anion Gap 12.4 mmol/L (4.00-12.00); Calcium 9.4 mg/dL (8.7-10.3); Carbon Dioxide 20.6 mmol/L (21.6-31.8); Globulin 2.3 g/dL (1.6-3.3); Potassium 4.2 mmol/L (3.5-5.5); Total Bilirubin 0.4 mg/dL (0.3-1.2); Total Protein 6.8 g/dL (6.2-8.2)
[2018-08-04 16:54] LABS: Hemoglobin A1C 6.7 % (4.0-6.0)
== END ==
LOC: LABWHC1 10:54
PROVIDERS: ATTEND Nurse Practitioner Family
DX: I10 Essential (primary) hypertension (principal); E11.65 Type 2 diabetes mellitus with hyperglycemia; Z3A.01 Less than 8 weeks gestation of pregnancy
CPT/HCPCS: 36415; 80053; 83036; 84443; 84702; 85025

== ENCOUNTER 2018-08-05 12:58 | Emergency (ER) | payer OTHER ==
[2018-08-05] MEDS ORDERED: SODIUM CHLORIDE 0.9% 1,000 ML IV ONE (13:17)
[2018-08-05 14:00] LABS: Basophils % (A) 0 %; Eosinophils # (A) 0.1 k/uL (0-0.7); Eosinophils % (A) 2 %; HCT 38.6 % (34.0-46.0); HGB 12.9 gm/dL (11.4-16.0); Lymphocytes # (A) 1.7 k/uL (1.0-4.8); Lymphocytes % (A) 31 %; MCH 29.7 pg (25.0-35.0); MCHC 33.4 g/dL (31.0-37.0); MCV 88.9 fL (80.0-100.0); Mean Platelet Volume 7.4; Monocytes # (A) 0.2 k/uL (0-1.0); Monocytes % (A) 4 %; Neutrophils # (A) 3.5 k/uL (1.3-7.7); Neutrophils % (A) 62 %; Platelet Count 279 k/uL (150-450); RBC 4.34 m/uL (3.80-5.40); RDW 15.6 % (11.5-15.5); WBC 5.7 k/uL (3.8-10.6)
[2018-08-05 14:07] LABS: Appearance,Urine Cloudy (Clear); Bacteria,Urine Rare /hpf; Bilirubin,Urine Negative (Negative); Blood,Urine Small (Negative); Color,Urine Yellow; Glucose,Urine (UA) Negative (Negative); Ketones,Urine Trace (Negative); Leukocyte Esterase,Urine Negative (Negative); Mucus,Urine Rare /hpf; Nitrite,Urine Negative (Negative); PH, Urine 5.5 (5.0-8.0); Protein,Urine 1+ (Negative); RBC,Urine 2 /hpf (0-5); Specific Gravity,Urine 1.026 (1.001-1.035); Squamous Epithelial Cell,Urine 5 /hpf (0-4); Urobilinogen,Urine <2.0 mg/dL (<2.0); WBC,Urine 2 /hpf (0-5)
[2018-08-05 14:17] LABS: ALT 94 U/L (9-52); AST 53 U/L (14-36); Albumin 4.4 g/dL (3.5-5.0); Alkaline Phosphatase 42 U/L (38-126); Anion Gap 12 mmol/L; Blood Urea Nitrogen 8 mg/dL (7-17); Calcium 9.9 mg/dL (8.4-10.2); Carbon Dioxide 25 mmol/L (22-30); Chloride 101 mmol/L (98-107); Glucose 135 mg/dL (74-99); Potassium 4.5 mmol/L (3.5-5.1); Sodium 138 mmol/L (137-145); Total Bilirubin 0.4 mg/dL (0.2-1.3); Total Protein 7.2 g/dL (6.3-8.2)
--- NOTE | 2018-08-05 14:38 | US ---
EXAMINATION TYPE: Transabdominal DATE OF EXAM: 08/05/2018 2:23 PM COMPARISON: 07/29/2018 CLINICAL HISTORY: left back pain, sent to r/o ectopic. left sided pain, early ob EXAM PERFORMED: OBTA/OBTV EXAM MEASUREMENTS: GESTATIONAL AGE / DATING Physician Established: Not yet established Dates by LMP: (6 weeks/1 days) EDC: 03/30/2019 Dates by First Scan: no IUP seen Dates by Current Scan for: No IUP seen at this time MATERNAL ANATOMY Uterus: 7.4 x 5.8 x 4.5cm - retroverted Right Ovary: 2.7 x 2.5 x 2.5cm Left Ovary: 3.2 x 2.8 x 2.6cm Post CDS / Adnexa: wnl Presence of free fluid: no Presence of corpus luteal cyst: Probable left = 2.4cm Presence of subchorionic bleed: no GESTATION / SURVEY Endometrium: 1.5cm IUP: No IUP seen at this time Date of LMP: 06/23/2018 Beta HcG (if available): 24.9 yesterday IMPRESSION: No current intrauterine is seen however there is a decidual reaction and probable corpus cristopher teum in the left ovary. Ectopic remains a consideration as no gestational sac is yet visual ized in the uterus. No adnexal masses seen at this time.
--- NOTE | 2018-08-05 15:34 | ED ---
Abdominal Pain HPI - General Chief Complaint: Abdominal Pain Stated Complaint: poss ectopic Time Seen by Provider: 08/05/18 13:12 Source: patient Mode of arrival: ambulatory - History of Present Illness Initial Comments: 22-year-old female presented for left lower back pain. Patient states she had a positive test at home. Patient states she came for an ultrasound and was told there is no intrauterine presents at this time. Patient was told to follow serial ultrasounds as well as hCG levels to make sure she did not have an ectopic . Patient had some mild low back pain on the left side she was concerned this could be an ectopic and presented for evaluation. Patient denies any pelvic pain abdominal pain nausea vomiting and severe pain. She denies any vaginal discharge. She states that she does have brownish vaginal bleeding. Patient denies chest pain dyspnea lower extremity swelling fever or chills or any other complaints. Appears well upon arrival no acute distress. - Related Data Home Medications Medication Instructions Recorded Confirmed metFORMIN HCL [Glucophage] 1,000 mg PO BID 04/23/18 08/05/18 Labetalol [Trandate] 400 mg PO TID 07/29/18 08/05/18 Pnv No.95/Ferrous Fum/Folic AC 1 tab PO DAILY 07/29/18 08/05/18 [ Multivitamin Tablet] Allergies Allergy/AdvReac Type Severity Reaction Status Date / Time cephalexin [From Keflex] Allergy Rash/Hives Verified 08/05/18 13:32 Review of Systems ROS Statement: Those systems with pertinent positive or pertinent negative responses have been documented in the HPI. ROS Other: All systems not noted in ROS Statement are negative. Past Medical History Past Medical History: Diabetes Mellitus, Hypertension History of Any Multi-Drug Resistant Organisms: None Reported Past Surgical History: No Surgical Hx Reported Additional Past Surgical History / Comment(s): Adnoids removed Past Anesthesia/Blood Transfusion Reactions: No Reported Reaction Past Psychological History: No Psychological Hx Reported Smoking Status: Never smoker Past Alcohol Use History: None Reported Past Drug Use History: None Reported - Past Family History Mother Additional Family Medical History / Comment(s): Colotis, cirrosis of liver, chrones Father Family Medical History: Hypertension General Exam - General Exam Comments Initial Comments: General: The patient is awake and alert, in no distress, and does not appear acutely ill. Eye: Pupils are equal, round and reactive to light, extra-ocular movements are intact. No nystagmus. There is normal conjunctiva bilaterally. No signs of icterus. Ears, nose, mouth and throat: There are moist mucous membranes and no oral lesions. Neck: The neck is supple, there is no tenderness or JVD. Cardiovascular: There is a regular rate and rhythm. No murmur, rub or gallop is appreciated. Respiratory: Lungs are clear to auscultation, respirations are non-labored, breath sounds are equal. No wheezes, stridor, rales, or rhonchi. Gastrointestinal: Soft, non-distended, non-tender abdomen without masses or organomegaly noted. There is no rebound or guarding present. No CVA tenderness. Bowel sounds are unremarkable. Musculoskeletal: Normal ROM, no tenderness. Strength 5/5. Sensation intact. Pulses equal bilaterally 2+. Neurological: A&O x 3. CN II-XII intact, There are no obvious motor or sensory deficits. Coordination appears grossly intact. Speech is normal. Skin: Skin is warm and dry and no rashes or lesions are noted. Psychiatric: Cooperative, appropriate mood & affect, normal judgment. Course Vital Signs 08/05/18 08/05/18 13:05 16:14 Temperature 98.3 F 97.5 F L Pulse Rate 88 82 Respiratory 20 18 Rate Blood Pressure 165/102 145/88 O2 Sat by Pulse 99 96 Oximetry Medical Decision Making - Medical Decision Making 22-year-old presenting for evaluation of possible ectopic. Patient denies any severe pain. Patient states she has slight left lower back pain. Benign abdominal exam. Ultrasound revealed no intrauterine , there was a left corpus luteal cyst. Patient hCG 24, this is decreased from previous value yesterday. Given this pattern patient most likely has spontaneous miscarriage. I did discuss the risk of ectopic being present still. Pt is to f/u with OBGYN, and return for worsening pain. I did recommend outpatient labs with primary care provider. I discussed case with him provider Dr. Cross who is agreeable patient plan of care and discharged today. - Lab Data Result diagrams: 08/05/18 13:35 08/05/18 13:35 Lab Results 08/05/18 08/05/18 08/05/18 Range/Units 13:35 13:35 13:35 WBC 5.7 (3.8-10.6) k/uL RBC 4.34 (3.80-5.40) m/uL Hgb 12.9 (11.4-16.0) gm/dL Hct 38.6 (34.0-46.0) % MCV 88.9 (80.0-100.0) fL MCH 29.7 (25.0-35.0) pg MCHC 33.4 (31.0-37.0) g/dL RDW 15.6 H (11.5-15.5) % Plt Count 279 (150-450) k/uL Neutrophils % 62 % Lymphocytes % 31 % Monocytes % 4 % Eosinophils % 2 % Basophils % 0 % Neutrophils # 3.5 (1.3-7.7) k/uL Lymphocytes # 1.7 (1.0-4.8) k/uL Monocytes # 0.2 (0-1.0) k/uL Eosinophils # 0.1 (0-0.7) k/uL Basophils # 0.0 (0-0.2) k/uL Sodium 138 (137-145) mmol/L Potassium 4.5 (3.5-5.1) mmol/L Chloride 101 (98-107) mmol/L Carbon Dioxide 25 (22-30) mmol/L Anion Gap 12 mmol/L BUN 8 (7-17) mg/dL Creatinine 0.43 L (0.52-1.04) mg/dL Est GFR (CKD-EPI)AfAm >90 (>60 ml/min/1.73 sqM) Est GFR (CKD-EPI)NonAf >90 (>60 ml/min/1.73 sqM) Glucose 135 H (74-99) mg/dL Calcium 9.9 (8.4-10.2) mg/dL Total Bilirubin 0.4 (0.2-1.3) mg/dL AST 53 H (14-36) U/L ALT 94 H (9-52) U/L Alkaline Phosphatase 42 (38-126) U/L Total Protein 7.2 (6.3-8.2) g/dL Albumin 4.4 (3.5-5.0) g/dL HCG, Quant 24.0 mIU/mL Urine Color Urine Appearance (Clear) Urine pH (5.0-8.0) Ur Specific [place] (1.001-1.035) Urine Protein (Negative) Urine Glucose (UA) (Negative) Urine Ketones (Negative) Urine Blood (Negative) Urine Nitrite (Negative) Urine Bilirubin (Negative) Urine Urobilinogen (<2.0) mg/dL Ur Leukocyte Esterase (Negative) Urine RBC (0-5) /hpf Urine WBC (0-5) /hpf Ur Squamous Epith Cells (0-4) /hpf Urine Bacteria (None) /hpf Urine Mucus (None) /hpf Blood Type A Positive Blood Type Recheck No 08/05/18 Range/Units 13:35 WBC (3.8-10.6) k/uL RBC (3.80-5.40) m/uL Hgb (11.4-16.0) gm/dL Hct (34.0-46.0) % MCV (80.0-100.0) fL MCH (25.0-35.0) pg MCHC (31.0-37.0) g/dL RDW (11.5-15.5) % Plt Count (150-450) k/uL Neutrophils % % Lymphocytes % % Monocytes % % Eosinophils % % Basophils % % Neutrophils # (1.3-7.7) k/uL Lymphocytes # (1.0-4.8) k/uL Monocytes # (0-1.0) k/uL Eosinophils # (0-0.7) k/uL Basophils # (0-0.2) k/uL Sodium (137-145) mmol/L Potassium (3.5-5.1) mmol/L Chloride (98-107) mmol/L Carbon Dioxide (22-30) mmol/L Anion Gap mmol/L BUN (7-17) mg/dL Creatinine (0.52-1.04) mg/dL Est GFR (CKD-EPI)AfAm (>60 ml/min/1.73 sqM) Est GFR (CKD-EPI)NonAf (>60 ml/min/1.73 sqM) Glucose (74-99) mg/dL Calcium (8.4-10.2) mg/dL Total Bilirubin (0.2-1.3) mg/dL AST (14-36) U/L ALT (9-52) U/L Alkaline Phosphatase (38-126) U/L Total Protein (6.3-8.2) g/dL Albumin (3.5-5.0) g/dL HCG, Quant mIU/mL Urine Color Yellow Urine Appearance Cloudy H (Clear) Urine pH 5.5 (5.0-8.0) Ur Specific [place] 1.026 (1.001-1.035) Urine Protein 1+ H (Negative) Urine Glucose (UA) Negative (Negative) Urine Ketones Trace H (Negative) Urine Blood Small H (Negative) Urine Nitrite Negative (Negative) Urine Bilirubin Negative (Negative) Urine Urobilinogen <2.0 (<2.0) mg/dL Ur Leukocyte Esterase Negative (Negative) Urine RBC 2 (0-5) /hpf Urine WBC 2 (0-5) /hpf Ur Squamous Epith Cells 5 H (0-4) /hpf Urine Bacteria Rare H (None) /hpf Urine Mucus Rare H (None) /hpf Blood Type Blood Type Recheck Disposition Clinical Impression: Spontaneous Disposition: HOME SELF-CARE Condition: Good Instructions (If sedation given, give patient instructions): Miscarriage (ED) Additional Instructions: Please use medication as discussed. Please follow-up with family doctor in the next 2 days of symptoms have not improved. Please return to emergency room if the symptoms increase or worsen or for any other concerns, if there is any significant pain heavy vaginal bleeding please return IMMEDIATELY TO THE EMERGENCY DEPARTMENT Is patient prescribed a controlled substance at d/c from ED?: No Referrals: Yessenia Mustafa MD [Primary Care Provider] - 1-2 days Adilene Briones MD [STAFF PHYSICIAN] - 1-2 days Time of Disposition: 15:33
[2018-08-05 16:17] VITALS: BP 145/88; PULSE 82; RESP 18; TEMP 97.5
== END 2018-08-05 16:14 | disposition home or self-care (01) ==
LOC: EC 12:58
DX: O03.9 Complete or unspecified spontaneous abortion without complication (principal); E11.9 Type 2 diabetes mellitus without complications; I10 Essential (primary) hypertension; Z79.84 Long term (current) use of oral hypoglycemic drugs; Z79.899 Other long term (current) drug therapy; Z88.1 Allergy status to other antibiotic agents
CPT/HCPCS: 36415; 76801; 76817; 80053; 81001; 84702; 85025; 86900; 86901; 96360; 96361; 99284

== ENCOUNTER → 2018-11-01 | Outpatient (CLI) | payer OTHER | END | disposition home or self-care (01) | LOC: LABWHC1 16:13 | PROVIDERS: ATTEND Nurse Practitioner Family | DX: N91.2 Amenorrhea, unspecified (principal) | CPT/HCPCS: 36415; 84702 ==

== ENCOUNTER → 2019-02-06 | Outpatient (CLI) | payer OTHER ==
[2019-02-06 15:01] LABS: HGB 11.1 gm/dL (11.4-16.0); MCH 30.8 pg (25.0-35.0); MCHC 33.7 g/dL (31.0-37.0); MCV 91.6 fL (80.0-100.0); Mean Platelet Volume 7.4; Platelet Count 246 k/uL (150-450); RBC 3.61 m/uL (3.80-5.40); RDW 15.2 % (11.5-15.5); WBC 7.7 k/uL (3.8-10.6)
[2019-02-06 15:25] LABS: Uric Acid 5.5 mg/dL (3.7-7.4)
[2019-02-06 15:34] LABS: Creatinine 24 Hour,Urine 1653.9 mg/24hr (800.0-1800.0)
[2019-02-06 19:30] LABS: Hepatitis B Surface Antigen Non-Reactive (Non-Reactive)
[2019-02-06 20:23] LABS: Total Volume 24 Hour,Urine 1850 mL
[2019-02-06 22:22] LABS: HIV 1 AB Non-Reactive (Non-Reactive); HIV 2 AB Non-Reactive (Non-Reactive); HIV AB P24 Non-Reactive (Non-Reactive); HIV P24 AG Non-Reactive (Non-Reactive)
[2019-02-06 22:55] LABS: Hemoglobin A1C 5.5 % (4.0-6.0)
== END | disposition home or self-care (01) ==
LOC: LABWHC1 14:19
PROVIDERS: ATTEND Obstetrics & Gynecology
DX: Z34.82 Encounter for supervision of other normal pregnancy, second trimester (principal)
CPT/HCPCS: 36415; 81050; 82575; 83036; 84156; 84450; 84460; 84550; 85027; 86762; 86780; 86850; 86900; 86901; 87340; 87390

== ENCOUNTER → 2019-03-13 | Outpatient (CLI) | payer OTHER | END | disposition home or self-care (01) | LOC: LABWHC1 14:00 | PROVIDERS: ATTEND Obstetrics & Gynecology | DX: O24.112 Pre-existing type 2 diabetes mellitus, in pregnancy, second trimester (principal) | CPT/HCPCS: 36415; 84443 ==

== ENCOUNTER → 2019-05-08 | Outpatient (CLI) | payer OTHER ==
[2019-05-08 21:43] LABS: Albumin 3.8 g/dL (3.80-4.90); Albumin/Globulin Ratio 1.9 (1.60-3.17); Anion Gap 12.4 mmol/L (4.00-12.00); Calcium 9.5 mg/dL (8.7-10.3); Carbon Dioxide 20.6 mmol/L (21.6-31.8); Non-African American GFR(CKD) 145.8 (60.0-200.0); Potassium 4.3 mmol/L (3.5-5.5); Total Bilirubin 0.2 mg/dL (0.2-1.2); Total Protein 5.8 g/dL (6.2-8.2)
[2019-05-08 21:51] LABS: T4, Free (Free Thyroxine) 1.1 ng/dL (0.80-1.80)
[2019-05-08 23:25] LABS: Hemoglobin A1C 5.3 % (4.0-6.0)
== END | disposition home or self-care (01) ==
LOC: LABWHC1 14:01
PROVIDERS: ATTEND Internal Medicine Endocrinology, Diabetes & Metabolism
DX: E11.65 Type 2 diabetes mellitus with hyperglycemia (principal)
CPT/HCPCS: 36415; 80053; 83036; 84439; 84443

== ENCOUNTER → 2019-06-02 | Outpatient (CLI) | payer OTHER ==
[2019-06-02 10:55] LABS: Anisocytosis Slight; Basophils % (A) 0 %; Eosinophils # (A) 0.1 k/uL (0-0.7); Eosinophils % (A) 2 %; HCT 35.5 % (34.0-46.0); HGB 11.7 gm/dL (11.4-16.0); Lymphocytes # (A) 1.2 k/uL (1.0-4.8); Lymphocytes % (A) 21 %; MCH 30.8 pg (25.0-35.0); MCV 93.3 fL (80.0-100.0); Mean Platelet Volume 8.5; Monocytes # (A) 0.2 k/uL (0-1.0); Monocytes % (A) 4 %; Neutrophils # (A) 4.2 k/uL (1.3-7.7); Neutrophils % (A) 71 %; Platelet Count 199 k/uL (150-450); RDW 16.5 % (11.5-15.5)
[2019-06-02 16:44] LABS: Uric Acid 6.5 mg/dL (2.9-7.7)
[2019-06-02 18:14] LABS: Total Volume 24 Hour,Urine 1950 mL
[2019-06-02 18:18] LABS: Total Protein 24 Hour,Urine 1035.5 mg/24Hr
== END | disposition home or self-care (01) ==
LOC: LABWHC1 10:04
PROVIDERS: ATTEND Obstetrics & Gynecology
DX: I10 Essential (primary) hypertension (principal)
CPT/HCPCS: 36415; 81050; 82575; 84156; 84450; 84460; 84550; 85025

== ENCOUNTER 2019-06-06 16:32 | Inpatient (IN) | payer OTHER ==
[2019-06-06] MEDS: BETAMET ACET-BETAMETH SOD PHOS 6 MG/ML VIAL IM SCH (18:05)
[2019-06-06 19:28] LABS: Anisocytosis Slight; Basophils % (A) 0 %; Eosinophils # (A) 0.1 k/uL (0-0.7); Eosinophils % (A) 2 %; HCT 34.7 % (34.0-46.0); HGB 11.3 gm/dL (11.4-16.0); Lymphocytes # (A) 1.3 k/uL (1.0-4.8); Lymphocytes % (A) 20 %; MCH 30.7 pg (25.0-35.0); MCHC 32.7 g/dL (31.0-37.0); MCV 93.7 fL (80.0-100.0); Mean Platelet Volume 8.8; Monocytes # (A) 0.3 k/uL (0-1.0); Monocytes % (A) 5 %; Neutrophils # (A) 4.7 k/uL (1.3-7.7); Neutrophils % (A) 71 %; Platelet Count 205 k/uL (150-450); RDW 16.7 % (11.5-15.5); WBC 6.5 k/uL (3.8-10.6)
--- NOTE | 2019-06-06 19:28 | P.HPOB ---
History of Present Illness H&P Date: 06/06/19 Chief Complaint: 35-3/7 weeks, chronic hypertension with superimposed pre-ec lampsia The patient is a 23-year-old 3 para 0020 admitted at 35-3/7 weeks as established by an 18 week ultrasound. She is admitted with diagnoses of chronic hypertension requiring labetalol 600 mg twice daily which has kept her blood pressures stable to this point. She additionally was found with diabetes during the which has now come to require insulin. She also carries a di agnosis of morbid obesity. She has recently began to have her blood pressures be slightly more irregular and underwent laboratory workup for preeclampsia with essentially normal findings aside from a significant 24 hour urine collection of greater than 1000 mg. She likely has pre-existing renal disease from her hypertension given in early 24 hour urine collection with approximately 370 mg of protein in the first trimester. On labor and delivery, her blood pressures were initially elevated but have returned to baseline of roughly 140 to 150s over 80s to 90s at rest. She is admitted for further diagnostic workup to rule out severe features of preeclampsia with repeat 24 hour urine collection. She additionally has been admitted for betamethasone administration, first dose given tonight and to be repeated tomorrow at 24 hours. On labor and delivery, signs are reassuring with a reactive NST, category 1 tracing. There is no evidence of uterine contractility. Cervical exam is pending at this time as the patient is still wearing clothing. The patient declines any secondary symptoms of preeclampsia to include headache, scotomata, right upper quadrant pain, her body edema though she does have some mild dependent edema in her bilateral ankles and feet. Obstetrical history: 3 para 0020 with 2 early miscarriages not requiring D&C. Current statistics are listed in history of present illness. EDC of 07/08/2019 was established by an 18 week ultrasound. Laboratory workup demonstrates her blood type to be A+ with a negative antibody screen. Rubella status is immune. The remainder of the laboratory workup was within normal limits. Glucola has not been performed as the patient carries a diagnosis of type 2 diabetes which has now required insulin and is co-managed with endocrinology. Early preeclamptic labs demonstrated a total protein in 24 hours of 346 mg with otherwise normal labs. Blood sugars have been relatively normal recently. Blood pressures at home have ranged in the range of 140 to 150s over 80s to 90s on medications as outlined in history of present illness. No changes have been needed. Gynecologic history: Unremarkable with no history of any infections to include STDs. Review of Systems Review of systems is confined to history of present illness. Past Medical History Past Medical History: Diabetes Mellitus, Hypertension History of Any Multi-Drug Resistant Organisms: None Reported Past Surgical History: No Surgical Hx Reported Additional Past Surgical History / Comment(s): Adnoids removed Past Anesthesia/Blood Transfusion Reactions: No Reported Reaction Smoking Status: Never smoker - Past Family History Mother Additional Family Medical History / Comment(s): Colotis, cirrosis of liver, chrones Father Family Medical History: Hypertension Medications and Allergies Home Medications Medication Instructions Recorded Confirmed Type metFORMIN HCL [Glucophage] 1,000 mg PO BID MDD 2000 mg 04/23/18 06/06/19 History Labetalol [Trandate] 400 mg PO BID MDD 600 mg 07/29/18 06/06/19 History Pnv No.95/Ferrous Fum/Folic AC 1 tab PO DAILY MDD 1 tab 07/29/18 06/06/19 History [ Multivitamin Tablet] Aspirin 81 mg PO DAILY 06/06/19 06/06/19 History INSULIN LISPRO (humaLOG) [humaLOG] 20 units SQ ACHS 06/06/19 06/06/19 History Insulin NPH Human Isophane 100 unit SQ TID 06/06/19 06/06/19 History [humuLIN N] Allergies Allergy/AdvReac Type Severity Reaction Status Date / Time cephalexin [From Keflex] Allergy Rash/Hives Verified 08/05/18 13:32 Exam Intake and Output 06/06/19 06/06/19 06/06/19 06:59 14:59 22:59 Other: Weight 141.974 kg In general, this is a morbidly obese white female in no acute distress. Her heart has a regular rhythm and rate without murmur. Her lungs are clear to auscultation bilaterally in all medrano. Her abdomen is gravid, obese, nondistended, has normal active bowel sounds, is soft, nontender, and without any palpable masses aside from uterine fundus. Her external nasal without any cyanosis, clubbing, or significant edema and are nontender to palpation bilaterally. Digital cervical examination is pending at this time. Assessment and Plan (1) 35 to 36 weeks gestation of Current Visit: Yes Status: Acute Code(s): FIR3840 - SNOMED Code(s): 182097996 (2) Chronic hypertension with superimposed pre-eclampsia Current Visit: Yes Status: Acute Code(s): O11.9 - PRE-EXISTING HYPERTENSION WITH PRE-ECLAMPSIA, UNSP TRIMESTER SNOMED Code(s): 42129515 (3) Type 2 diabetes mellitus affecting in third trimester, antepartum Current Visit: Yes Status: Acute Code(s): O24.113 - PRE-EXISTING TYPE 2 DIABETES, IN , THIRD TRIMESTER SNOMED Code(s): 327101372 (4) Morbid obesity Current Visit: Yes Status: Acute Code(s): E66.01 - MORBID (SEVERE) OBESITY DUE TO EXCESS CALORIES SNOMED Code(s): 101094760 Plan: The patient has been admitted for continuing workup for possible severe features of superimposed preeclampsia. Laboratory workup is pending at this time. She will continue with a 24-hour urine collection for protein and creatinine clearance. Betamethasone has been administered and will be repeated in 24 hours. The intention would be to gauge the necessity of delivery sooner than 36-37 weeks. She will continue to have an NST every shift and has been started on a diabetic diet. She will continue to have blood glucose monitoring with fasting and two-hour postprandial Accu-Cheks. She will continue with labetalol 600 mg twice daily by mouth as well as her insulin as prescribed by endocrinology and will use her own at this time. Decisions regarding delivery will be dependent upon the findings over the next 12-24 hours. She will continue to have close blood pressure monitoring. Otherwise, expectant management is practiced at this time. There is no indication for magnesium sulfate prophylaxis at this time either.
[2019-06-06 19:34] LABS: ALT 18 U/L (4-34); AST 27 U/L (14-36); African American GFR (CKD) >90 (>60 ml/min/1.73 sqM); Blood Urea Nitrogen 17 mg/dL (7-17); LDH 440 U/L (313-618); Non-African American GFR(CKD) >90 (>60 ml/min/1.73 sqM); Uric Acid 6.9 mg/dL (3.7-7.4)
[2019-06-06 19:39] LABS: Bacteria,Urine Occasional /hpf; Mucus,Urine Rare /hpf; RBC,Urine 2 /hpf (0-5); Squamous Epithelial Cell,Urine 5 /hpf (0-4); WBC,Urine 3 /hpf (0-5)
[2019-06-06 20:09] LABS: Appearance,Urine Slightly Cloudy (Clear); Bilirubin,Urine 1+ (Negative); Blood,Urine Negative (Negative); Color,Urine Amber; Glucose,Urine (UA) Negative (Negative); Ketones,Urine Negative (Negative); Leukocyte Esterase,Urine Negative (Negative); Nitrite,Urine Negative (Negative); Protein,Urine 3+ (Negative); Urobilinogen,Urine <2.0 mg/dL (<2.0)
[2019-06-06 23:30] LABS: Glucose,Whole Blood 154 mg/dL (75-99)
[2019-06-07] MEDS: ACETAMINOPHEN TAB 325 MG TAB PO PRN (02:19)
--- NOTE | 2019-06-07 07:41 | P.PN ---
Subjective Progress Note Date: 06/07/19 Principal diagnosis: Chronic hypertension with superimposed pre-eclampsia with mild features The patient denies any secondary symptoms to include headache, scotomata, significantly increased swelling, right upper quadrant pain, or any other concerns. She did not sleep overnight but otherwise is performing all activities of daily living. Objective - Vital Signs Vital signs: Vital Signs Temp 97.9 F 06/06/19 23:04 Pulse 88 06/07/19 04:09 Resp 16 06/07/19 04:09 BP 133/75 06/07/19 04:09 Pulse Ox 99 06/06/19 23:04 Intake & Output 06/06/19 06/07/19 06/07/19 18:59 06:59 18:59 Weight 141.974 kg 141.974 kg Other: # Voids 2 - Exam In general, this is a morbidly obese white female in no acute distress. Her heart has a regular rhythm and rate without murmur. Her lungs are clear to auscultation bilaterally in all medrano. Her abdomen is gravid, nondistended, has normal active bowel sounds, soft, nontender, and without any palpable masses aside from uterine fundus. Her extremities are without any cyanosis, clubbing, or significant edema and are nontender to palpation bilaterally. Digital cervical examination is deferred. - Labs CBC & Chem 7: 06/06/19 17:10 06/06/19 17:10 Labs: Abnormal Lab Results - Last 24 Hours (Table) 06/06/19 06/06/19 06/06/19 Range/Units 17:10 17:10 17:10 RBC 3.70 L (3.80-5.40) m/uL Hgb 11.3 L (11.4-16.0) gm/dL RDW 16.7 H (11.5-15.5) % Creatinine 0.49 L (0.52-1.04) mg/dL POC Glucose (mg/dL) (75-99) mg/dL Urine Appearance Slightly Cloudy H (Clear) Urine Protein 3+ H (Negative) Urine Bilirubin 1+ H (Negative) Ur Squamous Epith Cells 5 H (0-4) /hpf Urine Bacteria Occasional H (None) /hpf Urine Mucus Rare H (None) /hpf 06/06/19 Range/Units 23:18 RBC (3.80-5.40) m/uL Hgb (11.4-16.0) gm/dL RDW (11.5-15.5) % Creatinine (0.52-1.04) mg/dL POC Glucose (mg/dL) 154 H (75-99) mg/dL Urine Appearance (Clear) Urine Protein (Negative) Urine Bilirubin (Negative) Ur Squamous Epith Cells (0-4) /hpf Urine Bacteria (None) /hpf Urine Mucus (None) /hpf Assessment and Plan (1) 35 to 36 weeks gestation of Current Visit: Yes Status: Acute Code(s): GYM6101 - SNOMED Code(s): 496625817 (2) Chronic hypertension with superimposed pre-eclampsia Current Visit: Yes Status: Acute Code(s): O11.9 - PRE-EXISTING HYPERTENSION WITH PRE-ECLAMPSIA, UNSP TRIMESTER SNOMED Code(s): 71360909 (3) Type 2 diabetes mellitus affecting in third trimester, antepartum Current Visit: Yes Status: Acute Code(s): O24.113 - PRE-EXISTING TYPE 2 DIABETES, IN , THIRD TRIMESTER SNOMED Code(s): 091603858 (4) Morbid obesity Current Visit: Yes Status: Acute Code(s): E66.01 - MORBID (SEVERE) OBESITY DUE TO EXCESS CALORIES SNOMED Code(s): 650052900 Plan: The patient continues to be stable at this point. She will continue to collect her 24-hour urine collection. Blood pressures have been entirely stable on labor and delivery. She will be due for second dose of betamethasone this evening. Laboratory workup has thus far been entirely normal and consistent with previous findings pending the outcome of the 24-hour urine. Plans will await the collection of the remainder of findings and vital signs as the day progresses. Possible discharge tonight or tomorrow morning.
[2019-06-07 07:42] LABS: Glucose,Whole Blood 100 mg/dL (75-99)
[2019-06-07] MEDS: LACTATED RINGERS 1,000 ML IV SCH ×12 (09:05→23:52)
[2019-06-07 10:38] LABS: Glucose,Whole Blood 82 mg/dL (75-99)
[2019-06-07 15:07] LABS: Glucose,Whole Blood 104 mg/dL (75-99)
[2019-06-07] MEDS: BETAMET ACET-BETAMETH SOD PHOS 6 MG/ML VIAL IM SCH (17:55)
[2019-06-07 18:20] LABS: Total Volume 24 Hour,Urine 1900 mls (800-1800)
[2019-06-07 18:33] LABS: Creatinine 24 Hour,Urine 1774.6 mg/24hr (800.0-1800.0)
[2019-06-07 18:49] LABS: Total Protein 24 Hour,Urine 8987 mg/24hr (42.0-225.0)
[2019-06-07 20:37] LABS: Glucose,Whole Blood 108 mg/dL (75-99)
[2019-06-07 20:49] LABS: INR 0.9 (<1.2); Prothrombin Time 9.3 sec (9.0-12.0)
[2019-06-07 20:51] LABS: Partial Thromboplastin Time 21.2 sec (22.0-30.0)
[2019-06-08] MEDS ORDERED: CLINDAMYCIN 900 MG in DEXTROSE 5% IN WATER 50 ML IVPB ONE ×2 (06:30)
[2019-06-08] MEDS ORDERED: CITRIC ACID-SODIUM CITRATE 15 ML CUP PO ONE (06:30)
[2019-06-08 06:50] LABS: Glucose,Whole Blood 92 mg/dL (75-99)
[2019-06-08] MEDS ORDERED: hydrALAZINE HCL 20 MG/ML 1 ML VIAL ONE (07:25)
[2019-06-08] MEDS ORDERED: KETOROLAC 30 MG/ML 1 ML VIAL ONE (07:25)
[2019-06-08] MEDS ORDERED: LABETALOL 5 MG/ML VIAL MDV ONE (07:25)
[2019-06-08] MEDS ORDERED: OXYTOCIN 10 UNIT/ML 1 ML VIAL ONE (07:25)
[2019-06-08] MEDS ORDERED: ONDANSETRON 4 MG/2 ML VIAL ONE (07:25)
[2019-06-08] MEDS ORDERED: MORPHINE SULFATE (PF) 0.3 MG/0.3 ML SYR ONE (07:25)
[2019-06-08] MEDS ORDERED: HUMALOG INSULIN SQ SCH ×3 (08:30→18:30)
[2019-06-08] MEDS ORDERED: INSULIN ISOPHANE SQ SCH ×2 (08:30→21:00)
[2019-06-08] MEDS ORDERED: [UNRECOGNIZED DRUG - OTHER] SQ SCH ×2 (08:30→21:00)
[2019-06-08] MEDS ORDERED: ACETAMINOPHEN TAB 325 MG TAB PO PRN (08:40)
[2019-06-08] MEDS ORDERED: diphenhydrAMINE 50 MG CAP PO PRN (08:40)
[2019-06-08] MEDS ORDERED: diphenhydrAMINE 50 MG/ML 1 ML VIAL IVP PRN ×2 (08:40)
[2019-06-08] MEDS ORDERED: ZOLPIDEM 5 MG TAB PO PRN (08:40)
[2019-06-08] MEDS ORDERED: METOCLOPRAMIDE 5 MG/ML 2 ML VIAL IVP PRN (08:40)
[2019-06-08] MEDS ORDERED: NALOXONE 0.4 MG/ML 1 ML VIAL IV PRN (08:40)
[2019-06-08] MEDS ORDERED: ACETAMINOPHEN IV (For NPO) 1,000 MG in EMPTY BAG 1 BAG IVPB ONE (08:40)
[2019-06-08] MEDS ORDERED: SIMETHICONE 80 MG CHEWABLE PO PRN (08:40)
[2019-06-08] MEDS ORDERED: ONDANSETRON 4 MG/2 ML VIAL IVP PRN (08:40)
[2019-06-08] MEDS ORDERED: diphenhydrAMINE 25 MG CAP PO PRN (08:40)
--- NOTE | 2019-06-08 08:40 | P.OP ---
Date of Procedure: 06/08/19 Preoperative Diagnosis: 35-6/7 weeks intrauterine , chronic hypertension with superimposed preeclampsia, with severe sutures. Massive maternal obesity. Extensive proteinuria. Postoperative Diagnosis: Same, liveborn female infant, 5 lbs. 1 oz. or 2290 g. nuchal cord 1. fibroid uterus noted. Procedure(s) Performed: Primary low transverse section Anesthesia: spinal Surgeon: Marilu Montez Inspector Exhaust Emissions #1: Adilene Briones Estimated Blood Loss (ml): 600 IV fluids (ml): 1,000 Urine output (ml): 200 Pathology: other (Placenta) Condition: stable Disposition: PACU Indications for Procedure: 24 hour urine collection with 9000 mg of protein. Blood pressure on admission 167/95, reasonably well controlled on labetalol. Creatinine 0.49 mg. Diagnosis of superimposed preeclampsia with severe features. Description of Procedure: Patient is brought to the operating suite where a spinal analgesia with Duramorph is given. She's placed in the dorsal supine position with left lateral uterine displacement. 900 mg of Cleocin is given prophylactically. The appropriate timeout is performed to assure proper patient and procedural identification. Hampton catheter is placed to direct drainage. The abdomen is prepped and draped in the usual sterile fashion. Analgesia is checked and noted to be adequate. The pannus retractor system is placed on the abdominal wall. A low transverse skin incision is made and carried down through the subcutaneous tissue which is approximately 12-14 cm deep. Fascia is isolated, scored, and extended bilaterally with curved Bennett scissors. Peritoneum is next identified and incised, there is no bowel or bladder involvement. The large disposable ring retractor is placed now for good visualization. A low transverse uterine inci sri is made in this is carried down through the myometrium. Artificial amniorrhexis reveals clear fluid. The incision is extended bluntly. The 's head is delivered occiput anterior. There is a nuchal cord 1 that is reduced. The patient is officially delivered of a liveborn female infant at 0753 hours. Umbilical cord is doubly clamped and ligated, she is handed to waiting nurses for evaluation where scores of 9 and 10 at one and 5 minutes respectively are given. The placentas delivered manually at 0754 hours, it is sent to pathology for evaluation. It appears small to inspection. There is a trivascular cord. Uterus is then externalized and swept clean with a sterile sponge. The uterus is closed in a two-step fashion, first layer running locking with 0 Vicryl, second layer imbricated with same. Excellent reapproximation is noted. Uterus is noted to contain multiple small fibroids, largest is 1.5 cm in diameter. Tubes and ovaries appear normal. The uterus is gently placed back into the abdominal cavity. Uterine incision is once again inspected and noted to be clean and dry. The rectus muscles are brought together in the midline gently with a single figur e-of-eight suture of 3-0 Vicryl. Peritoneum was allowed to close by secondary intention. Fascia is closed in a running stitch of 0 Vicryl with over ligation in the midline. Subcutaneous tissue is irrigated, noted to be clean and dry. It is reapproximated with 3-0 Vicryl in a running fashion. 4-0 undyed Monocryl is used for final skin closure. Steri-Strips and Mastisol are applied to the wound. Patient is brought back to the recovery room in stable condition with a blood pressure of 148/90, pulse 89, 98% O2 saturation. Anesthesia will be administering labetalol for blood pressure control. Patient will be started now on magnesium sulfate, 4 g loading dose, then 1 g per hour maintenance dose for 24 hours. Abdominal binder will be placed. Urine is noted to be clear, 200 mL output. Total fluid replacement 1000 mL's. Close eyes and nose maintained in the postoperative period.
[2019-06-08] MEDS ORDERED: MAGNESIUM SULFATE-WATER PMX 4 GM in WATER FOR INJECTION 1 100ML.BAG IVPB ONE (08:44)
[2019-06-08] MEDS: metFORMIN 500 MG TAB PO SCH ×2 (08:55→20:10)
[2019-06-08] MEDS ORDERED: OXYTOCIN 20 UNITS/1000 ML NS 1,000 ML IV SCH (09:15)
[2019-06-08] MEDS: LACTATED RINGERS 1,000 ML IV SCH ×2 (09:21→12:15)
[2019-06-08] MEDS: LABETALOL 200 MG TAB PO SCH ×3 (09:21→21:38)
[2019-06-08] MEDS: MAGNESIUM SULFATE-WATER PMX 20 GM in WATER FOR INJECTION 1 500ML.BAG IV SCH (09:40)
[2019-06-08 17:56] LABS: Glucose,Whole Blood 86 mg/dL (75-99)
[2019-06-08] MEDS: KETOROLAC 30 MG/ML 1 ML VIAL IVP PRN (21:37)
[2019-06-08] MEDS: SENNOSIDES-DOCUSATE SODIUM 1 EACH TAB PO SCH (21:38)
[2019-06-09] MEDS: MAGNESIUM SULFATE-WATER PMX 20 GM in WATER FOR INJECTION 1 500ML.BAG IV SCH (04:14)
[2019-06-09] MEDS: LACTATED RINGERS 1,000 ML IV SCH ×2 (04:15→20:48)
[2019-06-09] MEDS: KETOROLAC 30 MG/ML 1 ML VIAL IVP PRN (05:51)
[2019-06-09 06:59] LABS: Glucose,Whole Blood 87 mg/dL (75-99)
--- NOTE | 2019-06-09 07:15 | P.PN ---
Progress Note - Text Progress Note Date: 06/09/19 Patient is without complaints. Ambulating, denies weakness or paresthesia. Pruritis controlled. Denies headache. Denies pain. VSS Back - spinal site c/d A/P POD#1 s/p with spinal Duramorph - doing well
[2019-06-09] MEDS: SENNOSIDES-DOCUSATE SODIUM 1 EACH TAB PO SCH ×3 (07:24→20:32)
[2019-06-09] MEDS: metFORMIN 500 MG TAB PO SCH ×2 (07:26→17:20)
[2019-06-09 07:37] LABS: Anisocytosis Slight; Basophils % (A) 0 %; Eosinophils # (A) 0.1 k/uL (0-0.7); Eosinophils % (A) 2 %; HCT 31.6 % (34.0-46.0); HGB 10.1 gm/dL (11.4-16.0); Lymphocytes # (A) 0.9 k/uL (1.0-4.8); Lymphocytes % (A) 20 %; MCH 30.3 pg (25.0-35.0); MCHC 31.9 g/dL (31.0-37.0); Mean Platelet Volume 8.3; Monocytes # (A) 0.2 k/uL (0-1.0); Monocytes % (A) 5 %; Neutrophils # (A) 3.3 k/uL (1.3-7.7); Neutrophils % (A) 71 %; Platelet Count 170 k/uL (150-450); RBC 3.32 m/uL (3.80-5.40); RDW 16.9 % (11.5-15.5); WBC 4.6 k/uL (3.8-10.6)
--- NOTE | 2019-06-09 08:30 | P.PNOBGPC ---
Subjective - Subjective Principal diagnosis: Preeclampsia with severe features Interval history: Feeling well this morning. Tolerating a liquid diet. Denies nausea, vomiting, headaches, visual changes, abdominal pain, reflux, heartburn, shortness of breath or chest pain. Patient reports: Reports pain well controlled, Reports ambulating normally [place]: doing well (In special care nursery for early gestational age) Objective - Vital Signs Latest vital signs: Vital Signs Temp Pulse Resp BP Pulse Ox 06/09/19 07:00 80 16 137/83 100 06/09/19 05:49 98.2 F 77 20 141/84 100 06/09/19 05:00 98.1 F 89 18 154/91 99 06/09/19 04:00 98.3 F 74 18 135/90 98 06/09/19 03:00 68 18 127/75 06/09/19 02:00 98.1 F 68 18 137/80 06/09/19 01:00 98.0 F 62 16 129/75 06/09/19 00:00 98.1 F 79 18 131/78 98 06/08/19 23:00 98.5 F 72 20 134/80 100 06/08/19 22:00 98.8 F 72 20 131/82 100 06/08/19 21:00 98.0 F 78 20 137/83 100 06/08/19 20:00 98.6 F 78 18 130/78 98 06/08/19 19:00 76 16 132/82 100 06/08/19 18:00 73 17 150/92 100 06/08/19 17:00 84 16 154/89 100 06/08/19 16:00 98.9 F 90 17 146/78 97 06/08/19 15:00 90 16 136/84 100 06/08/19 14:00 98.3 F 92 16 147/86 100 06/08/19 12:52 98.4 F 94 16 137/89 97 06/08/19 12:00 98.7 F 97 16 134/81 98 06/08/19 10:39 94 17 137/72 99 06/08/19 10:08 92 17 131/68 99 06/08/19 09:35 90 17 140/73 100 06/08/19 09:21 88 17 135/74 100 06/08/19 09:05 89 16 118/70 100 06/08/19 08:50 91 17 148/80 100 06/08/19 08:35 98.4 F 89 17 145/82 99 Intake and Output 06/08/19 06/09/19 06/09/19 22:59 06:59 14:59 Intake Total 1220 1739.167 Output Total 1450 1075 100 Balance -230 664.167 -100 Intake: IV 375 975 Lactated Ringers 1,000 ml 300 775 @ 75 mls/hr IV .[id number] [facility] Rx#:[id number] Magnesium Sulfate-Water 75 200 Pmx 20 gm In Water For Injection 1 500ml.bag @ 1 GM/HR 25 mls/hr IV .Q20H [facility] Rx#:[id number] Intake, IV Titration 725 464.167 Amount ACETAMINOPHEN IV (For NPO 100 ) 1,000 mg In Empty Bag 1 bag @ 400 mls/hr IVPB ONCE ONE Rx#:[id number] Lactated Ringers 1,000 ml 500 @ 125 mls/hr IV .Q8H [facility] Rx#:[id number] Magnesium Sulfate-Water 125 464.167 Pmx 20 gm In Water For Injection 1 500ml.bag @ 1 GM/HR 25 mls/hr IV .Q20H [facility] Rx#:[id number] Oral 120 300 Output: Urine 1450 1075 100 Other: Voiding Method Indwelling Catheter Indwelling Catheter - Exam Lungs: bilateral: normal Extremities: Present: edema Abdomen: Present: normal appearance, soft, other (Obese with large pannus). Absent: tenderness Incision: Present: normal, dry, intact. Absent: erythematous Uterus: Present: other (Unable to palpate) Comments: 2+ deep tendon reflexes. No clonus. - Labs Labs: Abnormal Lab Results - Last 24 Hours (Table) 06/09/19 Range/Units 06:30 RBC 3.32 L (3.80-5.40) m/uL Hgb 10.1 L (11.4-16.0) gm/dL Hct 31.6 L (34.0-46.0) % RDW 16.9 H (11.5-15.5) % Lymphocytes # 0.9 L (1.0-4.8) k/uL Assessment and Plan (1) 35 to 36 weeks gestation of Current Visit: Yes Status: Acute Code(s): TXM7165 - SNOMED Code(s): 326294419 (2) Chronic hypertension with superimposed pre-eclampsia Narrative/Plan: Her blood pressures have been reasonable mainly in the 130s over 70s and 80s. She did have one high of 150s over 90s 1. She is currently on magnesium 1 g per hour. She is diuresing very well and we will discontinue her magnesium as it has been 24 hours postdelivery. Hampton catheter can be removed however ongoing strict I's and O's to be recorded. She was on 600 mg of labetalol twice a day when she presented for this . I will assume that this remains an appropriate dose for her however we will monitor blood pressures to assure dose adjustment is not needed. Recheck pre-eclamptic labs this morning. Plan discussed in detail with the patient as well as events leading up to delivery. All questions are answered. Current Visit: Yes Status: Acute Code(s): O11.9 - PRE-EXISTING HYPERTENSION WITH PRE-ECLAMPSIA, UNSP TRIMESTER SNOMED Code(s): 96127066 (3) Morbid obesity Current Visit: Yes Status: Acute Code(s): E66.01 - MORBID (SEVERE) OBESITY DUE TO EXCESS CALORIES SNOMED Code(s): 352868788 (4) Type 2 diabetes mellitus affecting in third trimester, antepartum Narrative/Plan: Discontinue insulin. Resume metformin 1000 mg twice a day with general diet. Current Visit: Yes Status: Acute Code(s): O24.113 - PRE-EXISTING TYPE 2 DIABETES, IN , THIRD TRIMESTER SNOMED Code(s): 385746139 (5) Hypertension Current Visit: No Status: Acute Code(s): I10 - ESSENTIAL (PRIMARY) HYPERTENSION SNOMED Code(s): 71475837 (6) S/P section Current Visit: Yes Status: Acute Code(s): Z98.891 - HISTORY OF UTERINE SCAR FROM PREVIOUS SURGERY SNOMED Code(s): 341672170
[2019-06-09] MEDS: LABETALOL 200 MG TAB PO SCH ×2 (09:26→20:32)
[2019-06-09 09:55] LABS: ALT 17 U/L (4-34); AST 22 U/L (14-36); African American GFR (CKD) >90 (>60 ml/min/1.73 sqM); Albumin 2.7 g/dL (3.5-5.0); Alkaline Phosphatase 54 U/L (38-126); Anion Gap 4 mmol/L; Blood Urea Nitrogen 17 mg/dL (7-17); Calcium 8.3 mg/dL (8.4-10.2); Carbon Dioxide 24 mmol/L (22-30); Chloride 104 mmol/L (98-107); Glucose 103 mg/dL (74-99); Non-African American GFR(CKD) >90 (>60 ml/min/1.73 sqM); Potassium 4.3 mmol/L (3.5-5.1); Sodium 132 mmol/L (137-145); Total Bilirubin 0.3 mg/dL (0.2-1.3); Total Protein 5.4 g/dL (6.3-8.2)
[2019-06-09] MEDS: IBUPROFEN 600 MG TAB PO PRN (17:20)
[2019-06-10] MEDS: IBUPROFEN 600 MG TAB PO PRN ×4 (00:20→23:49)
[2019-06-10] MEDS: ACETAMINOPHEN TAB 325 MG TAB PO PRN ×3 (04:56→19:49)
[2019-06-10 06:32] LABS: Glucose,Whole Blood 83 mg/dL (75-99)
[2019-06-10] MEDS: metFORMIN 500 MG TAB PO SCH ×2 (08:02→19:49)
--- NOTE | 2019-06-10 10:04 | P.PNOBGPC ---
Subjective - Subjective Principal diagnosis: Chronic hypertension with superimposed preeclampsia, status post s Interval history: She is feeling very well. Ambulating and voiding without difficulty. She is complaining of some ongoing uncomfortable swelling of the lower extremities b ilaterally. She denies shortness of breath, chest pain, headaches, nausea, vomiting, headaches or visual changes. Patient reports: Reports appetite normal, Reports voiding normally, Reports pain well controlled, Reports ambulating normally, Denies nauseated : doing well Objective - Vital Signs Latest vital signs: Vital Signs Temp Pulse Resp BP Pulse Ox 06/10/19 08:00 98.2 F 82 18 140/90 06/10/19 04:00 98.5 F 89 18 148/89 99 06/10/19 00:00 98.5 F 83 16 130/82 98 06/09/19 20:00 98.7 F 99 16 153/85 98 06/09/19 16:00 97.1 F L 80 127/62 06/09/19 12:00 97.1 F L 80 16 127/62 Intake and Output 06/09/19 06/10/19 06/10/19 22:59 06:59 14:59 Output Total 900 Balance -900 Output: Urine 900 Other: # Voids 1 - Exam Lungs: bilateral: normal Extremities: Present: edema Abdomen: Present: soft. Absent: tenderness Incision: Present: normal, dry, intact. Absent: erythematous, edematous Uterus: Present: other (Unable to palpate) Assessment and Plan (1) 35 to 36 weeks gestation of Current Visit: Yes Status: Acute Code(s): TMG4251 - SNOMED Code(s): 147533119 (2) Chronic hypertension with superimposed pre-eclampsia Narrative/Plan: Blood pressures stable, mainly in the 140s over 80s off of magnesium sulfate. She reports she was previously on labetalol 600 mg twice a day prior to . She also reports using a medication on that controlled her blood pressure however made her cough, she is uncertain what this was, possibly lisinopril. Will resume her labetalol twice a day however while she is inpatient I will request a medical consultation to see if she could be better managed for her chronic hypertension and diabetes management prior to discharge. She may benefit from a diuretic. I discussed this with the patient and she is in agreement and she does not have a well-established primary care physician. Current Visit: Yes Status: Acute Code(s): O11.9 - PRE-EXISTING HYPERTENSION WITH PRE-ECLAMPSIA, UNSP TRIMESTER SNOMED Code(s): 27876107 (3) Morbid obesity Current Visit: Yes Status: Acute Code(s): E66.01 - MORBID (SEVERE) OBESITY DUE TO EXCESS CALORIES SNOMED Code(s): 644248213 (4) Type 2 diabetes mellitus affecting in third trimester, antepartum Narrative/Plan: Metformin 1000 mg twice a day. Has resumed a general diet without difficulty. Current Visit: Yes Status: Acute Code(s): O24.113 - PRE-EXISTING TYPE 2 DIABETES, IN , THIRD TRIMESTER SNOMED Code(s): 049005888 (5) Hypertension Current Visit: No Status: Acute Code(s): I10 - ESSENTIAL (PRIMARY) HYPERTENSION SNOMED Code(s): 33534757 (6) S/P section Current Visit: Yes Status: Acute Code(s): Z98.891 - HISTORY OF UTERINE SCAR FROM PREVIOUS SURGERY SNOMED Code(s): 913658779
[2019-06-10] MEDS: LABETALOL 200 MG TAB PO SCH ×2 (10:21→19:48)
--- NOTE | 2019-06-10 16:17 | P.CONS ---
History of Present Illness - Reason for Consult Consult date: 06/10/19 Elevated BP Requesting physician: Ramakrishna Rondon - Chief Complaint Elevated BP - History of Present Illness Patient is a 23-year-old with PMH of hypertension that underwent section on 06/08/2019. [facility] has been consulted for elevated BP post section. Patient states that she was diagnosed with hypertension when she was 14 years old. Her blood pressure was monitored during that time and she was started on an antihypertensive medication when she was around 19 years old. Patient does not remember which antihypertensive medication she was started on but does report that this medication gave her a dry cough. She lost her insurance and subsequently stopped taking any medication until her in April. Patient reported her first to be in April which ended in miscarriage. She had another miscarriage in July. In April, she was started on labetalol which was titrated to 600 mg by mouth twice a day. She has been taking this dose of labetalol throughout her current . Patient reports that her blood pressure is usually in the range of 130 to 140 over 80-90. When she hit 30 weeks of patient reported that her blood pressure jumped to 140-150 over 90-100s.she does not follow a low-salt diet. She does not exercise. Patient does plan on breast-feeding. Patient currently reports a frontal headache and lower extremity swelling. She denies any nausea or vomiting, fever or chills, cough, chest pain, shortness of breath, palpitations, changes in urination or bowel habits. No changes in appetite or weight. She denies any dizziness, numbness/weakness/tingling of the extremities. She does not smoke cigarettes and drinks alcohol socially. She denies any illicit drug use. Review of Systems Pertinent positives and negatives as discussed in HPI, a complete review of systems was performed and all other systems are negative. Past Medical History Past Medical History: Diabetes Mellitus, Hypertension History of Any Multi-Drug Resistant Organisms: None Reported Past Surgical History: No Surgical Hx Reported Additional Past Surgical History / Comment(s): Adnoids removed Past Anesthesia/Blood Transfusion Reactions: No Reported Reaction Smoking Status: Never smoker - Past Family History Mother Additional Family Medical History / Comment(s): Colotis, cirrosis of liver, chrones Father Family Medical History: Hypertension Medications and Allergies Home Medications Medication Instructions Recorded Confirmed Type metFORMIN HCL [Glucophage] 1,000 mg PO BID MDD 2000 mg 04/23/18 06/06/19 History Labetalol [Trandate] 400 mg PO BID MDD 600 mg 07/29/18 06/06/19 History Pnv No.95/Ferrous Fum/Folic AC 1 tab PO DAILY MDD 1 tab 07/29/18 06/06/19 History [ Multivitamin Tablet] Aspirin 81 mg PO DAILY 06/06/19 06/06/19 History INSULIN LISPRO (humaLOG) [humaLOG] 20 units SQ ACHS 06/06/19 06/06/19 History Insulin NPH Human Isophane 100 unit SQ TID 06/06/19 06/06/19 History [humuLIN N] Allergies Allergy/AdvReac Type Severity Reaction Status Date / Time cephalexin [From Keflex] Allergy Rash/Hives Verified 08/05/18 13:32 Physical Exam Vitals: Vital Signs Temp Pulse Resp BP Pulse Ox 06/10/19 12:00 98.0 F 80 18 146/82 06/10/19 08:00 98.2 F 82 18 140/90 06/10/19 04:00 98.5 F 89 18 148/89 99 06/10/19 00:00 98.5 F 83 16 130/82 98 06/09/19 20:00 98.7 F 99 16 153/85 98 06/09/19 16:00 97.1 F L 80 127/62 General: [non toxic], [no distress], [appears at stated age] Derm: [warm], [dry] Head: [atraumatic], [normocephalic], [symmetric] Eyes: [EOMI], [no lid lag], [anicteric sclera] Mouth: [no lip lesion], [mucus membranes moist] Cardiovascular: [S1S2 reg], [no murmur], [positive DP pulse bilateral], Lungs: [CTA bilateral], [no rhonchi, no rales] , [no accessory muscle use] Ext: [no gross muscle atrophy], [1+ pitting lower extremity edema], [no contractures] Neuro: [no focal neuro deficits] Psych: [Alert], [oriented], [appropriate affect] Results CBC & Chem 7: 06/09/19 06:30 06/09/19 09:27 Assessment and Plan Assessment: Chronic hypertension with superimposed preeclampsia Anemia from acute blood loss Type 2 diabetes mellitus Morbid obesity with BMI 53.7 Her blood pressure has ranged from a low of 127/62 to a high of 154/91. She was previously taking labetalol 600 mg by mouth twice a day when she was found to be in April. Prior to this, she was started on an antihypertensive medication in her 20s which was stopped by the patient due to insurance issues. She was treated for preeclampsia during her hospitalization as she had proteinuria and elevated BP. She was on magnesium infusion which has been disco ntinued. We will continue her home dose of labetalol 600 mg by mouth twice a day and add hydrochlorothiazide 25 mg by mouth once daily. Her vitals will be monitored every 4 hours. Her diet will be switched to a low-salt diet. Patient has a hemoglobin of 10.1 which has dropped from 11.3 on admission. This is an expected acute blood loss from her section. She is currently on metformin for her diabetes which will be continued. I discussed lifestyle modifications for hypertension and morbid obesity. Weight loss would definitely help with this patient's hypertension. She has lost about 30 pounds while on metformin which should be continued. Thank you for this consult. Please contact [facility] for any questions or concerns regarding this patient. We'll continue to follow this patient during her hospitalization.
[2019-06-10] MEDS: HYDROCHLOROTHIAZIDE 25 MG TAB PO SCH (16:34)
[2019-06-10] MEDS: SENNOSIDES-DOCUSATE SODIUM 1 EACH TAB PO SCH (20:09)
[2019-06-11] MEDS: ACETAMINOPHEN TAB 325 MG TAB PO PRN (05:10)
[2019-06-11 06:21] LABS: Glucose,Whole Blood 92 mg/dL (75-99)
[2019-06-11] MEDS: IBUPROFEN 600 MG TAB PO PRN ×2 (08:12→19:39)
[2019-06-11] MEDS: metFORMIN 500 MG TAB PO SCH ×2 (08:12→19:48)
[2019-06-11] MEDS: HYDROCHLOROTHIAZIDE 25 MG TAB PO SCH (08:13)
[2019-06-11] MEDS: LABETALOL 200 MG TAB PO SCH ×2 (08:14→19:49)
[2019-06-11] MEDS: SENNOSIDES-DOCUSATE SODIUM 1 EACH TAB PO SCH (09:45)
--- NOTE | 2019-06-11 09:47 | P.PNOBGPC ---
Subjective - Subjective Principal diagnosis: Chronic hypertension with superimposed preeclampsia, postop day 3 Interval history: Patient is visiting the infant in the special care nursery. Limited exam performed. Overall feeling very well. Still complaining of uncomfortable swelling in her bilateral lower extremities. Her pain is very well controlled. She is ambulating and voiding without difficulty or dizziness. She denies headaches, visual changes, nausea, vomiting, shortness of breath, chest pain, fevers, chills. Patient reports: Reports appetite normal, Reports voiding normally, Reports pain well controlled, Reports ambulating normally [place]: doing well (Special care nursery) Objective - Vital Signs Latest vital signs: Vital Signs Temp Pulse Resp BP Pulse Ox 06/11/19 08:30 98.3 F 94 18 155/95 06/11/19 04:00 97.9 F 83 17 152/93 98 06/10/19 23:51 97.6 F 79 18 145/93 99 06/10/19 20:00 97.8 F 100 18 148/92 98 06/10/19 16:00 97.8 F 85 16 158/95 06/10/19 12:00 98.0 F 80 18 146/82 - Exam Extremities: Present: other (No erythema), edema Abdomen: Present: normal appearance, soft. Absent: tenderness Incision: Present: dry, intact Comments: DTRs 2+ per titrator and Plan (1) 35 to 36 weeks gestation of Current Visit: Yes Status: Acute Code(s): DKI6653 - SNOMED Code(s): 274088890 (2) Chronic hypertension with superimposed pre-eclampsia Narrative/Plan: I very much appreciate the medical consultation regarding ongoing management of her chronic hypertension and diabetes. She remains on 600 mg labetalol twice a day and hydrochlorothiazide 25 mg daily has been added. This is compatible with breast-feeding. Her blood pressures have been somewhat elevated over the last 24 hours with blood pressures through the night consistently 140s to 150s over 90s. She is asymptomatic at this point with no symptoms of preeclampsia however still has significant swelling on the of the bilateral lower extremities, slightly improved from yesterday. Current Visit: Yes Status: Acute Code(s): O11.9 - PRE-EXISTING HYPERTENSION WITH PRE-ECLAMPSIA, UNSP TRIMESTER SNOMED Code(s): 22740669 (3) Morbid obesity Current Visit: Yes Status: Acute Code(s): E66.01 - MORBID (SEVERE) OBESITY DUE TO EXCESS CALORIES SNOMED Code(s): 470167971 (4) Type 2 diabetes mellitus affecting in third trimester, antepartum Narrative/Plan: Continue metformin 1000 mg by mouth twice a day. She did receive yareli Hatfield's education during her with the maternal medicine specialist and we discussed briefly today continuing with general diet recommendations to better control her blood sugars for the long-term. She'll require follow-up testing on as an outpatient in the period Current Visit: Yes Status: Acute Code(s): O24.113 - PRE-EXISTING TYPE 2 DIABETES, IN , THIRD TRIMESTER SNOMED Code(s): 356408846 (5) Hypertension Current Visit: No Status: Acute Code(s): I10 - ESSENTIAL (PRIMARY) HYPERTENSION SNOMED Code(s): 31822626 (6) S/P section Narrative/Plan: Postop day 3 status post primary low transverse section. From a surgical standpoint she is recovering well. Her incision is well-healing and we have discussed wound care. I anticipate that she will be discharged home tomorrow on postoperative day #4. Unfortunately infant will remain in the nursery secondary to gestational age. Baby is doing very well Current Visit: Yes Status: Acute Code(s): Z98.891 - HISTORY OF UTERINE SCAR FROM PREVIOUS SURGERY SNOMED Code(s): 609766314
[2019-06-11] MEDS: NIFEdipine XL 30 MG TAB.ER.24 PO SCH (16:22)
[2019-06-11] MEDS ORDERED: DIPH,PERTUS(ACELL)TETVAC-LF 0.5 ML VIAL IM ONE (17:07)
--- NOTE | 2019-06-11 19:04 | P.PN ---
Subjective Progress Note Date: 06/11/19 Principal diagnosis: Elevated BP Patient was seen and examined. No acute events overnight. Patient denies any chest pain, shortness breath or palpitations. No nausea vomiting. No fever or chills. Patient reports slight improvement in the swelling of her ankles bilaterally. Still complains of some tightness around the calves due to swelling. Objective - Vital Signs Vital signs: Vital Signs Temp 98.3 F 06/11/19 16:39 Pulse 88 06/11/19 16:39 Resp 18 06/11/19 16:39 BP 142/97 06/11/19 16:39 Pulse Ox 97 06/11/19 16:39 - Exam General: [non toxic], [no distress], [appears at stated age] Derm: [warm], [dry] Head: [atraumatic], [normocephalic], [symmetric] Eyes: [EOMI], [no lid lag], [anicteric sclera] Mouth: [no lip lesion], [mucus membranes moist] Cardiovascular: [S1S2 reg], [no murmur], [positive DP pulse bilateral], Lungs: [CTA bilateral], [no rhonchi, no rales] , [no accessory muscle use] Ext: [no gross muscle atrophy], [1+ pitting lower extremity edema], [no contractures] Neuro: [no focal neuro deficits] Psych: [Alert], [oriented], [appropriate affect] - Labs CBC & Chem 7: 06/09/19 06:30 06/09/19 09:27 Assessment and Plan Assessment: Chronic hypertension with superimposed preeclampsia Anemia from acute blood loss Type 2 diabetes mellitus Morbid obesity with BMI 53.7 Her blood pressure has ranged from a low of 127/62 to a high of 155/95. She was previously taking labetalol 600 mg by mouth twice a day when she was found to be in April. Prior to this, she was started on an antihypertensive medication in her 20s which was stopped by the patient due to insurance issues. She was treated for preeclampsia during her hospitalization as she had proteinuria and elevated BP. She was on magnesium infusion which has been discontinued. We will continue her home dose of labetalol 600 mg by mouth twice a day and add hydrochlorothiazide 25 mg by mouth once daily. Nifedipine has also been added for better blood pressure control. Her vitals will be monitored every 4 hours. She will be continued on low salt diet. Patient has a hemoglobin of 10.1 which has dropped from 11.3 on admission. This is an expected acute blood loss from her section. She is currently on metformin for her diabetes which will be continued. I discussed lifestyle modifications for hypertension and morbid obesity. Weight loss would definitely help with this patient's hypertension. She has lost about 30 pounds while on metformin which should be continued. Thank you for this consult. Please contact [facility] for any questions or concerns regarding this patient. We'll continue to follow this patient during her hospitalization.
[2019-06-12] MEDS: SENNOSIDES-DOCUSATE SODIUM 1 EACH TAB PO SCH ×2 (00:20→07:55)
[2019-06-12] MEDS: ACETAMINOPHEN TAB 325 MG TAB PO PRN (04:44)
[2019-06-12 06:31] LABS: Glucose,Whole Blood 84 mg/dL (75-99)
[2019-06-12] MEDS: metFORMIN 500 MG TAB PO SCH ×2 (07:32→17:23)
[2019-06-12] MEDS: HYDROCHLOROTHIAZIDE 25 MG TAB PO SCH (08:35)
[2019-06-12] MEDS: NIFEdipine XL 30 MG TAB.ER.24 PO SCH (08:35)
[2019-06-12] MEDS: IBUPROFEN 600 MG TAB PO PRN ×2 (08:36→17:23)
[2019-06-12] MEDS: LABETALOL 200 MG TAB PO SCH (08:36)
--- NOTE | 2019-06-12 09:03 | P.DS ---
Providers Date of admission: 06/07/19 22:26 Expected date of discharge: 06/12/19 Attending physician: Ramakrishna Rondon Consults: 06/10/19 10:05 Consult Physician Routine Consulting Provider: Ry Hall Consult Reason/Comments: Hx chronic hypertension, type 2 diabetes, morbid obestity. Do you want consulting provider notified?: Yes Primary care physician: Stated None - Discharge Diagnosis(es) (1) 35 to 36 weeks gestation of Current Visit: Yes Status: Acute (2) Chronic hypertension with superimposed pre-eclampsia Current Visit: Yes Status: Acute (3) Type 2 diabetes mellitus affecting in third trimester, antepartum Current Visit: Yes Status: Acute (4) Morbid obesity Current Visit: Yes Status: Acute Hospital Course: The patient is a 23-year-old 3 para 0020 admitted at 35-3/7 weeks for concerns of superimposed preeclampsia on chronic hypertension. She had had fairly significant amount of proteinuria on a 24 urine and was admitted to the hospital for serial blood pressure monitoring and laboratory workup for possible severe features of preeclampsia. 24 urine collection was repeated. On labor and delivery, blood pressures remained relatively stable but were slightly increased from baseline. Following the conclusion of her 24 urine collection, she was noted to have 9 g of protein making the diagnosis of superimposed preeclampsia with severe features. As she was remote from delivery, the decision was made to proceed with primary low-transverse section. She was taken the operating room where primary low-transverse section was carried out in uncomplicated fashion and she was delivered of a viable 5 lbs. 1 oz. baby girl with Apgars of 9 at 1 minute and 10 at 5 minutes. Her postoperative course was relatively unremarkable with vital signs remaining relatively stable. Internal medicine consultation was sought and an additional 30 mg of Procardia XL was added as well as hydrochlorothiazide 25 mg daily. Blood sugars for her known diabetes remained normal without any supplementation of insulin. She was deemed stable for discharge on postoperative day #4 was discharged home to follow-up in my office in approximately 10 days and with her primary care doctor in the next 4-5 days. She is additionally instructed to follow-up in my office at 6 weeks postoperatively. Discharge instructions included calling for any significantly increased bleeding or foul-smelling lochia, significantly increased fever or abdominal pain, perineal complaints, breast complaints, incisional complaints, or anything else that concerned her to include further signs of preeclampsia for which she has been counseled. She is additionally instructed to have nothing in the vagina for at least 6 weeks time to include intercourse. She understood her instructions and agrees to follow up as noted above. Discharge medications included continued vitamins as she has opted to breast-feed. She otherwise was to continue with all normal home medications, labetalol 600 mg twice daily as well as her normal metformin dose. She was provided prescriptions for hydrochlorothiazide 25 mg, 1 by mouth daily, #30 dispensed with 5 refills. She was additionally given a prescription for Procardia XL 30 mg, 1 by mouth daily, #30 dispensed with 5 refills. She was lastly given a prescription for Tylenol 3, 1-2 by mouth every 6 hours when necessary pain, #20 dispensed with no refills. Maternal blood type is A+ and rubella status is immune. Discharge hemoglobin and hematocrit are 10.1 and 31.6 respectively. Procedures: #1. Serial blood pressure monitoring #2. 24 urine collection #3. Primary low- transverse section #4. Internal medicine consultation Patient Condition at Discharge: Stable Plan - Discharge Summary New Discharge Prescriptions: No Action metFORMIN HCL [Glucophage] 1,000 mg PO BID MDD 2000 mg Labetalol [Trandate] 400 mg PO BID MDD 600 mg Pnv No.95/Ferrous Fum/Folic AC [ Multivitamin Tablet] 1 tab PO DAILY MDD 1 tab RX: Aspirin 81 mg PO DAILY INSULIN LISPRO (humaLOG) [humaLOG] 20 units SQ ACHS Insulin NPH Human Isophane [humuLIN N] 100 unit SQ TID Discharge Medication List metFORMIN HCL [Glucophage] 1,000 mg PO BID MDD 2000 mg 04/23/18 [History] Labetalol [Trandate] 400 mg PO BID MDD 600 mg 07/29/18 [History] Pnv No.95/Ferrous Fum/Folic AC [ Multivitamin Tablet] 1 tab PO DAILY MDD 1 tab 07/29/18 [History] INSULIN LISPRO (humaLOG) [humaLOG] 20 units SQ ACHS 06/06/19 [History] Insulin NPH Human Isophane [humuLIN N] 100 unit SQ TID 06/06/19 [History] RX: Aspirin 81 mg PO DAILY 06/06/19 [History] Follow up Appointment(s)/Referral(s): Ramakrishna Rondon MD [STAFF PHYSICIAN] - 10 Days Discharge Disposition: HOME SELF-CARE
[2019-06-12 16:45] VITALS: PULSE 92; RESP 18; TEMP 98.1
[2019-06-12 18:26] VITALS: BP 142/86
== END 2019-06-12 18:45 | disposition home or self-care (01) | DRG 787 ==
LOC: FBPOP 16:32 → 4FBP 19:17 → OBSVTOIN 06-07 22:26
PROVIDERS: ADMIT Obstetrics & Gynecology; ATTEND Obstetrics & Gynecology
PROC: 10D00Z1 Extraction of Products of Conception, Low, Open Approach (ICD-10-PCS; principal; 2019-06-08 07:30)
PROC: 3E0234Z Introduction of Serum, Toxoid and Vaccine into Muscle, Percutaneous Approach (ICD-10-PCS; 2019-06-11)
DX: O11.4 Pre-existing hypertension with pre-eclampsia, complicating childbirth (principal); D62 Acute posthemorrhagic anemia; O24.12 Pre-existing type 2 diabetes mellitus, in childbirth; O99.214 Obesity complicating childbirth; O99.02 Anemia complicating childbirth; E66.01 Morbid (severe) obesity due to excess calories; E11.9 Type 2 diabetes mellitus without complications; O69.81X0 Labor and delivery complicated by cord around neck, without compression, not applicable or unspecified; O34.13 Maternal care for benign tumor of corpus uteri, third trimester; D25.9 Leiomyoma of uterus, unspecified; Z3A.36 36 weeks gestation of pregnancy; Z37.0 Single live birth; Z23 Encounter for immunization; L29.9 Pruritus, unspecified; Z79.4 Long term (current) use of insulin; Z79.82 Long term (current) use of aspirin; Z79.899 Other long term (current) drug therapy; Z88.1 Allergy status to other antibiotic agents; Z82.49 Family history of ischemic heart disease and other diseases of the circulatory system; Z83.79 Family history of other diseases of the digestive system
CPT/HCPCS: 80053; 81001; 81050; 82565; 82570; 83615; 84156; 84450; 84460; 84520; 84550; 85025; 85610; 85730; 86850; 86900; 86901; 88307; 90715

== ENCOUNTER 2020-06-13 16:32 | Emergency (ER) | payer OTHER ==
[2020-06-13] MEDS ORDERED: LIDOCAINE 1% INJ 10MG/ML (20 ML MDV) SQ ONE (16:57)
--- NOTE | 2020-06-13 18:03 | ED ---
Skin/Abscess/FB HPI - General Chief complaint: Skin/Abscess/Foreign Body Stated complaint: Cyst on inner thigh & bumps on skin Time Seen by Provider: 06/13/20 16:44 Source: patient Mode of arrival: ambulatory Limitations: no limitations - History of Present Illness Initial comments: 24-year-old female patient presents with an abscess to her right buttock states present for 4 days. Originally did get some drainage but stopped and increasingly painful. Patient denies fevers. Patient also here with rash to bilateral arms left-sided back and right knee states has been present for over a month and spreading. MD complaint: rash, abscess/boil Quality: aching Consistency: constant Improves with: none Worsens with: none Context: none Treatments Prior to Arrival: attempted to drain pus at home - Related Data Home Medications Medication Instructions Recorded Confirmed metFORMIN HCL [Glucophage] 1,000 mg PO BID MDD 2000 mg 04/23/18 06/06/19 Labetalol [Trandate] 400 mg PO BID MDD 600 mg 07/29/18 06/06/19 Pnv No.95/Ferrous Fum/Folic AC 1 tab PO DAILY MDD 1 tab 07/29/18 06/06/19 [ Multivitamin Tablet] Aspirin 81 mg PO DAILY 06/06/19 06/06/19 INSULIN LISPRO (humaLOG) [humaLOG] 20 units SQ ACHS 06/06/19 06/06/19 Insulin NPH Human Isophane 100 unit SQ TID 06/06/19 06/06/19 [humuLIN N] Previous Rx's Medication Instructions Recorded Clindamycin HCl 300 mg PO Q6HR #40 cap 06/13/20 Allergies Allergy/AdvReac Type Severity Reaction Status Date / Time cephalexin [From Keflex] Allergy Rash/Hives Verified 06/13/20 16:38 Review of Systems ROS Statement: Those systems with pertinent positive or pertinent negative responses have been documented in the HPI. ROS Other: All systems not noted in ROS Statement are negative. Past Medical History Past Medical History: Diabetes Mellitus, Hypertension History of Any Multi-Drug Resistant Organisms: None Reported Past Surgical History: Adenoidectomy, Section Additional Past Surgical History / Comment(s): Adnoids removed Past Anesthesia/Blood Transfusion Reactions: No Reported Reaction Past Psychological History: No Psychological Hx Reported Smoking Status: Never smoker Past Alcohol Use History: None Reported Past Drug Use History: None Reported - Past Family History Mother Additional Family Medical History / Comment(s): Colotis, cirrosis of liver, chrones Father Family Medical History: Hypertension General Exam Limitations: no limitations General appearance: alert, in no apparent distress Head exam: Present: atraumatic, normocephalic, normal inspection Eye exam: Present: normal appearance, PERRL, EOMI. Absent: scleral icterus, conjunctival injection, periorbital swelling ENT exam: Present: normal exam, mucous membranes moist Neck exam: Present: normal inspection. Absent: tenderness, meningismus, lymphadenopathy Respiratory exam: Present: normal lung sounds bilaterally Cardiovascular Exam: Present: regular rate, normal heart sounds GI/Abdominal exam: Present: soft, normal bowel sounds Rectal exam: Present: tenderness, other (abscess) Neurological exam: Present: alert, oriented X3, CN II-XII intact Psychiatric exam: Present: normal affect, normal mood Skin exam: Present: warm, dry, intact, normal color. Absent: rash Course Vital Signs 06/13/20 16:38 Temperature 99.1 F Pulse Rate 94 Respiratory 18 Rate Blood Pressure 171/108 O2 Sat by Pulse 94 L Oximetry Procedures - Joes Protocol (Time Out) Procedure Performed:: Incision and drainage of right groin abcess Performing Provider: Harvey Doe Nurse: Brandee Milligan Patient Identification (2 identifiers required): Chart, Verbal, Arm Band, Name, Birthdate Patient/Legal Manager Communication has Confirmed: Identity, Site, Procedure, Consent Site: Right thigh Site Marked: Yes Site Verified With Patient/Guardian: Yes - Incision & Drainage Consent Obtained: written consent Indication: abscess Site: buttock (right) Size (cm): 4 Anesthetic Used: lidocaine 1% I&D Cleaning Method: Betadine Sterile Field Used?: Yes Scalpel Used: #11 Needle Aspiration Performed?: No Irrigation Performed?: No I&D Drainage Obtained: Pus, Blood Culture Obtained?: Yes Patient Tolerated Procedure: well Medical Decision Making - Medical Decision Making Patient will be referred to dermatology for the rash of the upper arms, right knee and back for possible molluscum. Abscess drained with a 1 cm laceration using 11 blade, moderate amount of purulent drainage, wound culture obtained and sent Disposition Clinical Impression: Abscess, Abscess of buttock, right Disposition: HOME SELF-CARE Condition: Good Instructions (If sedation given, give patient instructions): Abscess Incision and Drainage (ED) Prescriptions: Clindamycin HCl 300 mg PO Q6HR #40 cap Is patient prescribed a controlled substance at d/c from ED?: No Referrals: Yessenia Mustafa MD [Primary Care Provider] - 1-2 days Frank López MD [STAFF PHYSICIAN] - 1-2 days Time of Disposition: 18:21
[2020-06-13 19:03] VITALS: BP 162/112; PULSE 110; RESP 20; TEMP 100
== END 2020-06-13 18:56 | disposition home or self-care (01) ==
LOC: EC 16:32
DX: L02.31 Cutaneous abscess of buttock (principal); R21 Rash and other nonspecific skin eruption; I10 Essential (primary) hypertension; E11.9 Type 2 diabetes mellitus without complications; Z79.899 Other long term (current) drug therapy; Z79.4 Long term (current) use of insulin; Z79.82 Long term (current) use of aspirin; Z88.1 Allergy status to other antibiotic agents
CPT/HCPCS: 87070; 87205; 99283; 10060; J2001

== ENCOUNTER 2020-07-19 12:34 | Emergency (ER) | payer OTHER ==
[2020-07-19 15:51] LABS: Appearance,Urine Cloudy (Clear); Bacteria,Urine Rare /hpf; Bilirubin,Urine Negative (Negative); Blood,Urine Small (Negative); Color,Urine Yellow; Glucose,Urine (UA) 4+ (Negative); Leukocyte Esterase,Urine Trace (Negative); Mucus,Urine Few /hpf; Nitrite,Urine Negative (Negative); PH, Urine 6.5 (5.0-8.0); Protein,Urine 4+ (Negative); RBC,Urine 12 /hpf (0-5); Squamous Epithelial Cell,Urine 7 /hpf (0-4); Urobilinogen,Urine <2.0 mg/dL (<2.0); WBC,Urine 44 /hpf (0-5)
[2020-07-19 15:52] LABS: Specific Gravity,Urine 1.048 (1.001-1.035)
[2020-07-19 15:53] LABS: Ketones,Urine 3+ (Negative)
--- NOTE | 2020-07-19 16:08 | ED ---
Abdominal Pain HPI - General Chief Complaint: Abdominal Pain Stated Complaint: Abd Pain Time Seen by Provider: 07/19/20 16:06 Source: patient Mode of arrival: ambulatory Limitations: no limitations - History of Present Illness Initial Comments: 24-year-old female presents to the emergency department with a chief complaint of left upper quadrant pain since yesterday. Patient reports she is a borderline diabetic but does not take her metformin as she supposed to. States she began having intermittent left upper quadrant abdominal pain without any rad iation. She feels like her pain is in the abdomen and not the chest. Does report some nausea but no vomiting. She has diarrhea. Denies polyuria or any UTI like symptoms. She does report some abdominal bloating in the left upper quadrant as well. The pain is not postprandial. Denies possibilities for an . She denies any fevers or chills at home. - Related Data Home Medications Medication Instructions Recorded Confirmed metFORMIN HCL [Glucophage] 1,000 mg PO BID 04/23/18 07/19/20 Labetalol HCl [Trandate] 600 mg PO BID 07/19/20 07/19/20 NIFEdipine [Procardia XL] 30 mg PO DAILY 07/19/20 07/19/20 hydroCHLOROthiazide [Hydrodiuril] 25 mg PO DAILY 07/19/20 07/19/20 Allergies Allergy/AdvReac Type Severity Reaction Status Date / Time cephalexin [From Keflex] Allergy Rash/Hives Verified 07/19/20 16:46 Review of Systems ROS Statement: Those systems with pertinent positive or pertinent negative responses have been documented in the HPI. ROS Other: All systems not noted in ROS Statement are negative. Past Medical History Past Medical History: Diabetes Mellitus, Hypertension History of Any Multi-Drug Resistant Organisms: None Reported Past Surgical History: Adenoidectomy, Section Additional Past Surgical History / Comment(s): Adnoids removed Past Anesthesia/Blood Transfusion Reactions: No Reported Reaction Past Psychological History: No Psychological Hx Reported Smoking Status: Never smoker Past Alcohol Use History: None Reported Past Drug Use History: None Reported - Past Family History Mother Additional Family Medical History / Comment(s): Colotis, cirrosis of liver, chrones Father Family Medical History: Hypertension General Exam Limitations: no limitations General appearance: alert, in no apparent distress, obese Head exam: Present: atraumatic, normocephalic, normal inspection Eye exam: Present: normal appearance, PERRL, EOMI Pupils: Present: normal accommodation ENT exam: Present: normal exam, normal oropharynx, mucous membranes moist, TM's normal bilaterally, normal external ear exam. Absent: mucous membranes dry Neck exam: Present: normal inspection, full ROM. Absent: tenderness Respiratory exam: Present: normal lung sounds bilaterally. Absent: respiratory distress Cardiovascular Exam: Present: regular rate, normal rhythm, normal heart sounds GI/Abdominal exam: Present: soft, tenderness (Mild left upper quadrant tenderness), normal bowel sounds. Absent: distended, guarding Extremities exam: Present: normal inspection, full ROM, normal capillary refill. Absent: tenderness, pedal edema, joint swelling Back exam: Present: normal inspection, full ROM. Absent: tenderness, CVA tenderness (R), CVA tenderness (L) Neurological exam: Present: alert, oriented X3, normal gait Psychiatric exam: Present: normal affect, normal mood Skin exam: Present: warm, dry, intact, normal color Course Vital Signs 07/19/20 07/19/20 13:05 18:07 Temperature 98.8 F Pulse Rate 108 H 107 H Respiratory 16 22 Rate Blood Pressure 156/95 154/98 O2 Sat by Pulse 97 99 Oximetry Medical Decision Making - Medical Decision Making 24-year-old female presents emergency department with chief complaint of abdominal pain. On physical examination, no signs of clinical dehydration. CMP reveals a corrected sodium level of 132. Glucose 256. Anion gap of 15. Potassium within normal limits. Elevated lipase of 450 but not suggestive of pancreatitis at this time. Acetone negative. UA positive for glucose ketones leukocyte esterase 44 white blood cells with rare bacteria. Urine culture pending. She will not be treated for UTI at this time because she is not experiencing any UTI like symptoms. Low suspicion for DKA at this time. Patient was given 2 L of IV bolus fluids. Left upper quadrant bloating and symptoms likely secondary to gastritis. She will be discharged with Zofran advised to drink plenty of fluids. Advised to take omeprazole for one week. Strict return parameters were thoroughly discussed with patient was understanding and agreeable. Case discussed with Dr. Hathaway. - Lab Data Result diagrams: 07/19/20 16:16 07/19/20 16:16 Lab Results 07/19/20 07/19/20 07/19/20 Range/Units 15:45 15:45 16:16 WBC 9.6 (3.8-10.6) k/uL RBC 4.11 (3.80-5.40) m/uL Hgb 13.6 (11.4-16.0) gm/dL Hct 36.1 (34.0-46.0) % MCV 87.8 (80.0-100.0) fL MCH 33.1 (25.0-35.0) pg MCHC 37.7 H (31.0-37.0) g/dL RDW 15.5 (11.5-15.5) % Plt Count 249 (150-450) k/uL MPV 6.9 Neutrophils % 84 % Lymphocytes % 11 % Monocytes % 4 % Eosinophils % 0 % Basophils % 0 % Neutrophils # 8.1 H (1.3-7.7) k/uL Lymphocytes # 1.1 (1.0-4.8) k/uL Monocytes # 0.4 (0-1.0) k/uL Eosinophils # 0.0 (0-0.7) k/uL Basophils # 0.0 (0-0.2) k/uL Sodium (137-145) mmol/L Potassium (3.5-5.1) mmol/L Chloride (98-107) mmol/L Carbon Dioxide (22-30) mmol/L Anion Gap mmol/L BUN (7-17) mg/dL Creatinine (0.52-1.04) mg/dL Est GFR (CKD-EPI)AfAm (>60 ml/min/1.73 sqM) Est GFR (CKD-EPI)NonAf (>60 ml/min/1.73 sqM) Glucose (74-99) mg/dL Calcium (8.4-10.2) mg/dL Total Bilirubin (0.2-1.3) mg/dL AST (14-36) U/L ALT (4-34) U/L Alkaline Phosphatase (38-126) U/L Total Protein (6.3-8.2) g/dL Albumin (3.5-5.0) g/dL Amylase (30-110) U/L Lipase (23-300) U/L Urine Color Yellow Urine Appearance Cloudy H (Clear) Urine pH 6.5 (5.0-8.0) Ur Specific [place] 1.048 H (1.001-1.035) Urine Protein 4+ H (Negative) Urine Glucose (UA) 4+ H (Negative) Urine Ketones 3+ H (Negative) Urine Blood Small H (Negative) Urine Nitrite Negative (Negative) Urine Bilirubin Negative (Negative) Urine Urobilinogen <2.0 (<2.0) mg/dL Ur Leukocyte Esterase Trace H (Negative) Urine RBC 12 H (0-5) /hpf Urine WBC 44 H (0-5) /hpf Ur Squamous Epith Cells 7 H (0-4) /hpf Urine Bacteria Rare H (None) /hpf Urine Mucus Few H (None) /hpf Urine HCG, Qual Not Detected (Not Detectd) Acetone, Qual (Negative) 07/19/20 07/19/20 Range/Units 16:16 16:16 WBC (3.8-10.6) k/uL RBC (3.80-5.40) m/uL Hgb (11.4-16.0) gm/dL Hct (34.0-46.0) % MCV (80.0-100.0) fL MCH (25.0-35.0) pg MCHC (31.0-37.0) g/dL RDW (11.5-15.5) % Plt Count (150-450) k/uL MPV Neutrophils % % Lymphocytes % % Monocytes % % Eosinophils % % Basophils % % Neutrophils # (1.3-7.7) k/uL Lymphocytes # (1.0-4.8) k/uL Monocytes # (0-1.0) k/uL Eosinophils # (0-0.7) k/uL Basophils # (0-0.2) k/uL Sodium 128 L (137-145) mmol/L Potassium 4.3 (3.5-5.1) mmol/L Chloride 98 (98-107) mmol/L Carbon Dioxide 15 L (22-30) mmol/L Anion Gap 15 mmol/L BUN 5 L (7-17) mg/dL Creatinine 0.40 L (0.52-1.04) mg/dL Est GFR (CKD-EPI)AfAm >90 (>60 ml/min/1.73 sqM) Est GFR (CKD-EPI)NonAf >90 (>60 ml/min/1.73 sqM) Glucose 267 H (74-99) mg/dL Calcium 7.8 L (8.4-10.2) mg/dL Total Bilirubin 0.9 (0.2-1.3) mg/dL AST 26 (14-36) U/L ALT 27 (4-34) U/L Alkaline Phosphatase 87 (38-126) U/L Total Protein 7.5 (6.3-8.2) g/dL Albumin 3.2 L (3.5-5.0) g/dL Amylase 61 (30-110) U/L Lipase 450 H (23-300) U/L Urine Color Urine Appearance (Clear) Urine pH (5.0-8.0) Ur Specific [place] (1.001-1.035) Urine Protein (Negative) Urine Glucose (UA) (Negative) Urine Ketones (Negative) Urine Blood (Negative) Urine Nitrite (Negative) Urine Bilirubin (Negative) Urine Urobilinogen (<2.0) mg/dL Ur Leukocyte Esterase (Negative) Urine RBC (0-5) /hpf Urine WBC (0-5) /hpf Ur Squamous Epith Cells (0-4) /hpf Urine Bacteria (None) /hpf Urine Mucus (None) /hpf Urine HCG, Qual (Not Detectd) Acetone, Qual Negative (Negative) Disposition Clinical Impression: Abdominal pain Disposition: HOME SELF-CARE Condition: Stable Instructions (If sedation given, give patient instructions): Abdominal Pain (ED) Additional Instructions: Follow-up with her primary care physician. Return to emergency department if symptoms worsen. Is patient prescribed a controlled substance at d/c from ED?: No Referrals: Yessenia Mustafa MD [Primary Care Provider] - 1-2 days Time of Disposition: 18:42
[2020-07-19] MEDS ORDERED: SODIUM CHLORIDE 0.9% 1,000 ML IV STA (16:28)
[2020-07-19] MEDS ORDERED: SODIUM CHLORIDE 0.9% 500 ML 500 ML IV STA (16:28)
[2020-07-19 16:42] LABS: ALT 27 U/L (4-34); AST 26 U/L (14-36); African American GFR (CKD) >90 (>60 ml/min/1.73 sqM); Albumin 3.2 g/dL (3.5-5.0); Alkaline Phosphatase 87 U/L (38-126); Amylase 61 U/L (30-110); Anion Gap 15 mmol/L; Blood Urea Nitrogen 5 mg/dL (7-17); Calcium 7.8 mg/dL (8.4-10.2); Carbon Dioxide 15 mmol/L (22-30); Chloride 98 mmol/L (98-107); Glucose 267 mg/dL (74-99); Lipase 450 U/L (23-300); Non-African American GFR(CKD) >90 (>60 ml/min/1.73 sqM); Potassium 4.3 mmol/L (3.5-5.1); Sodium 128 mmol/L (137-145); Total Bilirubin 0.9 mg/dL (0.2-1.3); Total Protein 7.5 g/dL (6.3-8.2)
[2020-07-19 16:46] LABS: Basophils % (A) 0 %; Eosinophils % (A) 0 %; HCT 36.1 % (34.0-46.0); HGB 13.6 gm/dL (11.4-16.0); Lymphocytes # (A) 1.1 k/uL (1.0-4.8); Lymphocytes % (A) 11 %; MCH 33.1 pg (25.0-35.0); MCHC 37.7 g/dL (31.0-37.0); MCV 87.8 fL (80.0-100.0); Mean Platelet Volume 6.9; Monocytes # (A) 0.4 k/uL (0-1.0); Monocytes % (A) 4 %; Neutrophils # (A) 8.1 k/uL (1.3-7.7); Neutrophils % (A) 84 %; Platelet Count 249 k/uL (150-450); RBC 4.11 m/uL (3.80-5.40); RDW 15.5 % (11.5-15.5); WBC 9.6 k/uL (3.8-10.6)
--- NOTE | 2020-07-19 16:54 | XR ---
EXAMINATION TYPE: XR KUB DATE OF EXAM: 07/19/2020 COMPARISON: NONE HISTORY: Left upper quadrant pain. Nausea and vomiting. TECHNIQUE: 2 views upright FINDINGS: There is no sign of intestinal obstruction or pneumoperitoneum. Fecal pattern is normal. Jacy ng bases are clear. There are no pathologic calcifications over the kidneys. IMPRESSION: Nonacute abdomen.
[2020-07-19 18:12] VITALS: RESP 22
[2020-07-19 19:49] VITALS: BP 140/87; PULSE 106; TEMP 98.4
== END 2020-07-19 18:55 | disposition home or self-care (01) ==
LOC: EC 12:34
DX: R10.12 Left upper quadrant pain (principal); I10 Essential (primary) hypertension; E11.9 Type 2 diabetes mellitus without complications; Z79.84 Long term (current) use of oral hypoglycemic drugs
CPT/HCPCS: 36415; 74018; 80053; 81001; 81025; 82009; 82150; 83690; 85025; 87086; 96360; 99284

== ENCOUNTER 2020-07-25 19:59 | Inpatient (IN) | payer OTHER ==
[2020-07-25] MEDS ORDERED: SODIUM CHLORIDE 0.9% 1,000 ML IV STA (20:21)
[2020-07-25] MEDS ORDERED: ASPIRIN 325 MG TAB PO STA (20:51)
--- NOTE | 2020-07-25 21:04 | ED ---
General Adult HPI - General Chief complaint: Neuro Symptoms/Deficit Stated complaint: sent from MRI Time Seen by Provider: 07/25/20 20:15 Source: patient, RN notes reviewed, old records reviewed Mode of arrival: ambulatory Limitations: no limitations - History of Present Illness Initial comments: 24 yo female presented from outpatient MRI with abnormal MRI imaging showing a left frontal parietal lobe embolic infarcts. Patient states over the past one week she has had some slurred speech, as well as some numbness in her right hand. She has no previous history of CVA or TIA. She was sent for MRI as an outpatient by her primary care physician. MRI did reveal embolic infarcts. She denies any chest pain or fever. She states that approximately one week ago she had some epigastric discomfort which resolved. She states she has not been eating or drinking well over the past one week. No cough or dyspnea. She denies difficulty walking or significant headaches. - Related Data Home Medications Medication Instructions Recorded Confirmed metFORMIN HCL [Glucophage] 1,000 mg PO BID 04/23/18 07/19/20 Labetalol HCl [Trandate] 600 mg PO BID 07/19/20 07/19/20 NIFEdipine [Procardia XL] 30 mg PO DAILY 07/19/20 07/19/20 hydroCHLOROthiazide [Hydrodiuril] 25 mg PO DAILY 07/19/20 07/19/20 Previous Rx's Medication Instructions Recorded Pantoprazole Sodium [Protonix] 20 mg PO DAILY #20 tablet. 07/19/20 Allergies Allergy/AdvReac Type Severity Reaction Status Date / Time cephalexin [From Keflex] Allergy Rash/Hives Verified 07/25/20 20:08 Review of Systems ROS Statement: Those systems with pertinent positive or pertinent negative responses have been documented in the HPI. ROS Other: All systems not noted in ROS Statement are negative. Past Medical History Past Medical History: Diabetes Mellitus, Hypertension History of Any Multi-Drug Resistant Organisms: None Reported Past Surgical History: Adenoidectomy, Section Additional Past Surgical History / Comment(s): Adnoids removed Past Anesthesia/Blood Transfusion Reactions: No Reported Reaction Past Psychological History: No Psychological Hx Reported Smoking Status: Never smoker Past Alcohol Use History: None Reported Past Drug Use History: None Reported - Past Family History Mother Additional Family Medical History / Comment(s): Colotis, cirrosis of liver, chrones Father Family Medical History: Hypertension General Exam Limitations: no limitations General appearance: alert, in no apparent distress Head exam: Present: atraumatic, normocephalic Eye exam: Present: normal appearance, PERRL, EOMI ENT exam: Present: mucous membranes dry Neck exam: Present: normal inspection. Absent: tenderness, meningismus Respiratory exam: Present: normal lung sounds bilaterally. Absent: respiratory distress, wheezes Cardiovascular Exam: Present: normal rhythm, tachycardia GI/Abdominal exam: Present: soft. Absent: distended, tenderness, guarding, rebound Extremities exam: Present: normal inspection, normal capillary refill. Absent: calf tenderness Neurological exam: Present: alert, oriented X3, other (Patient has an NIH of 1 for some sensory deficit in the right upper extremity. She has 5 out of 5 strength in all 4 extremities. She does have clear speech currently.) Psychiatric exam: Present: anxious Skin exam: Present: warm, dry, intact, diaphoretic. Absent: cyanosis Course Vital Signs 07/25/20 20:05 Temperature 98.8 F Pulse Rate 117 H Respiratory 18 Rate Blood Pressure 173/110 O2 Sat by Pulse 98 Oximetry EKG Findings - EKG Comments: EKG Findings:: EKG: Sinus tachycardia, left atrial enlargement, rate of 105, VT interval 134, QRS duration 100, QTC 473, no ST segment elevation, T-wave inversion in lead 3. Medical Decision Making - Medical Decision Making 24-year-old female presented with an abnormal outpatient MRI showing an acute embolic CVA. Patient's symptoms have been ongoing for the past one week. She is not a TPA candidate. She is started on aspirin in the emergency department. Further workup was initiated including DVT study of both legs, echo ordered, chest x-ray. I did discuss case with Dr. Aparna lentz for neurology does recommend also obtaining a CT angiography of the head and neck. This test has been ordered, results are pending. Laboratory testing reveals a normal CBC, mild hyponatremia which is likely pseudohyponatremia secondary to elevated blood glucose of 490. She is not acidotic, not in DKA. She started on IV fluids and IV insulin. Case is discussed also with Carola lentz for [facility] hospitalist. Diagnosis: Hyperglycemia, CVA - Lab Data Result diagrams: 07/25/20 21:13 07/25/20 21:13 Lab Results 04/12/0707/25/20 07/25/20 Range/Units 20:25 20:26 20:26 WBC (3.8-10.6) k/uL RBC (3.80-5.40) m/uL Hgb (11.4-16.0) gm/dL Hct (34.0-46.0) % MCV (80.0-100.0) fL MCH (25.0-35.0) pg MCHC (31.0-37.0) g/dL RDW (11.5-15.5) % Plt Count (150-450) k/uL MPV Neutrophils % % Lymphocytes % % Monocytes % % Eosinophils % % Basophils % % Neutrophils # (1.3-7.7) k/uL Lymphocytes # (1.0-4.8) k/uL Monocytes # (0-1.0) k/uL Eosinophils # (0-0.7) k/uL Basophils # (0-0.2) k/uL PT (9.0-12.0) sec INR (<1.2) APTT (22.0-30.0) sec Sodium (137-145) mmol/L Potassium (3.5-5.1) mmol/L Chloride (98-107) mmol/L Carbon Dioxide (22-30) mmol/L Anion Gap mmol/L BUN (7-17) mg/dL Creatinine (0.52-1.04) mg/dL Est GFR (CKD-EPI)AfAm (>60 ml/min/1.73 sqM) Est GFR (CKD-EPI)NonAf (>60 ml/min/1.73 sqM) Glucose (74-99) mg/dL Plasma Lactic Acid Alexandro 1.6 (0.7-2.0) mmol/L Calcium (8.4-10.2) mg/dL Magnesium (1.6-2.3) mg/dL Total Bilirubin (0.2-1.3) mg/dL AST (14-36) U/L ALT (4-34) U/L Alkaline Phosphatase (38-126) U/L Troponin I (0.000-0.034) ng/mL Total Protein (6.3-8.2) g/dL Albumin (3.5-5.0) g/dL Urine Color Light Yellow Urine Appearance Clear (Clear) Urine pH 6.0 (5.0-8.0) Ur Specific [place] 1.047 H (1.001-1.035) Urine Protein 2+ H (Negative) Urine Glucose (UA) 4+ H (Negative) Urine Ketones 1+ H (Negative) Urine Blood Negative (Negative) Urine Nitrite Negative (Negative) Urine Bilirubin Negative (Negative) Urine Urobilinogen <2.0 (<2.0) mg/dL Ur Leukocyte Esterase Moderate H (Negative) Urine RBC 18 H (0-5) /hpf Urine WBC 24 H (0-5) /hpf Ur Squamous Epith Cells 4 (0-4) /hpf Hyaline Casts 1 (0-2) /lpf Urine Mucus Rare H (None) /hpf Urine Yeast (Budding) Occasional H (None) /hpf Urine HCG, Qual Not Detected (Not Detectd) 07/25/20 07/25/20 07/25/20 Range/Units 21:13 21:13 21:13 WBC 5.6 (3.8-10.6) k/uL RBC 3.99 (3.80-5.40) m/uL Hgb 12.2 (11.4-16.0) gm/dL Hct 34.9 (34.0-46.0) % MCV 87.4 (80.0-100.0) fL MCH 30.4 (25.0-35.0) pg MCHC 34.8 (31.0-37.0) g/dL RDW 14.9 (11.5-15.5) % Plt Count 323 (150-450) k/uL MPV 7.2 Neutrophils % 63 % Lymphocytes % 26 % Monocytes % 5 % Eosinophils % 3 % Basophils % 1 % Neutrophils # 3.6 (1.3-7.7) k/uL Lymphocytes # 1.5 (1.0-4.8) k/uL Monocytes # 0.3 (0-1.0) k/uL Eosinophils # 0.2 (0-0.7) k/uL Basophils # 0.0 (0-0.2) k/uL PT 10.3 (9.0-12.0) sec INR 1.0 (<1.2) APTT 21.6 L (22.0-30.0) sec Sodium 131 L (137-145) mmol/L Potassium 4.5 (3.5-5.1) mmol/L Chloride 92 L (98-107) mmol/L Carbon Dioxide 24 (22-30) mmol/L Anion Gap 15 mmol/L BUN 10 (7-17) mg/dL Creatinine 0.44 L (0.52-1.04) mg/dL Est GFR (CKD-EPI)AfAm >90 (>60 ml/min/1.73 sqM) Est GFR (CKD-EPI)NonAf >90 (>60 ml/min/1.73 sqM) Glucose 490 H (74-99) mg/dL Plasma Lactic Acid Alexandro (0.7-2.0) mmol/L Calcium 10.0 (8.4-10.2) mg/dL Magnesium 1.8 (1.6-2.3) mg/dL Total Bilirubin 0.7 (0.2-1.3) mg/dL AST 37 H (14-36) U/L ALT 24 (4-34) U/L Alkaline Phosphatase 98 (38-126) U/L Troponin I (0.000-0.034) ng/mL Total Protein 7.5 (6.3-8.2) g/dL Albumin 4.1 (3.5-5.0) g/dL Urine Color Urine Appearance (Clear) Urine pH (5.0-8.0) Ur Specific [place] (1.001-1.035) Urine Protein (Negative) Urine Glucose (UA) (Negative) Urine Ketones (Negative) Urine Blood (Negative) Urine Nitrite (Negative) Urine Bilirubin (Negative) Urine Urobilinogen (<2.0) mg/dL Ur Leukocyte Esterase (Negative) Urine RBC (0-5) /hpf Urine WBC (0-5) /hpf Ur Squamous Epith Cells (0-4) /hpf Hyaline Casts (0-2) /lpf Urine Mucus (None) /hpf Urine Yeast (Budding) (None) /hpf Urine HCG, Qual (Not Detectd) 07/25/20 Range/Units 21:13 WBC (3.8-10.6) k/uL RBC (3.80-5.40) m/uL Hgb (11.4-16.0) gm/dL Hct (34.0-46.0) % MCV (80.0-100.0) fL MCH (25.0-35.0) pg MCHC (31.0-37.0) g/dL RDW (11.5-15.5) % Plt Count (150-450) k/uL MPV Neutrophils % % Lymphocytes % % Monocytes % % Eosinophils % % Basophils % % Neutrophils # (1.3-7.7) k/uL Lymphocytes # (1.0-4.8) k/uL Monocytes # (0-1.0) k/uL Eosinophils # (0-0.7) k/uL Basophils # (0-0.2) k/uL PT (9.0-12.0) sec INR (<1.2) APTT (22.0-30.0) sec Sodium (137-145) mmol/L Potassium (3.5-5.1) mmol/L Chloride (98-107) mmol/L Carbon Dioxide (22-30) mmol/L Anion Gap mmol/L BUN (7-17) mg/dL Creatinine (0.52-1.04) mg/dL Est GFR (CKD-EPI)AfAm (>60 ml/min/1.73 sqM) Est GFR (CKD-EPI)NonAf (>60 ml/min/1.73 sqM) Glucose (74-99) mg/dL Plasma Lactic Acid Alexandro (0.7-2.0) mmol/L Calcium (8.4-10.2) mg/dL Magnesium (1.6-2.3) mg/dL Total Bilirubin (0.2-1.3) mg/dL AST (14-36) U/L ALT (4-34) U/L Alkaline Phosphatase (38-126) U/L Troponin I <0.012 (0.000-0.034) ng/mL Total Protein (6.3-8.2) g/dL Albumin (3.5-5.0) g/dL Urine Color Urine Appearance (Clear) Urine pH (5.0-8.0) Ur Specific [place] (1.001-1.035) Urine Protein (Negative) Urine Glucose (UA) (Negative) Urine Ketones (Negative) Urine Blood (Negative) Urine Nitrite (Negative) Urine Bilirubin (Negative) Urine Urobilinogen (<2.0) mg/dL Ur Leukocyte Esterase (Negative) Urine RBC (0-5) /hpf Urine WBC (0-5) /hpf Ur Squamous Epith Cells (0-4) /hpf Hyaline Casts (0-2) /lpf Urine Mucus (None) /hpf Urine Yeast (Budding) (None) /hpf Urine HCG, Qual (Not Detectd) Disposition Clinical Impression: Cerebrovascular accident (CVA), Uncontrolled diabetes mellitus Disposition: ADMITTED IP TO THIS HOSP Condition: Stable Is patient prescribed a controlled substance at d/c from ED?: No Referrals: Yessenia Mustafa MD [Primary Care Provider] - 1-2 days Decision to Admit Reason: Admit from EC Decision Date: 07/25/20 Decision Time: 23:00
[2020-07-25 21:29] LABS: Basophils % (A) 1 %; Eosinophils # (A) 0.2 k/uL (0-0.7); Eosinophils % (A) 3 %; HCT 34.9 % (34.0-46.0); HGB 12.2 gm/dL (11.4-16.0); Lymphocytes # (A) 1.5 k/uL (1.0-4.8); Lymphocytes % (A) 26 %; MCH 30.4 pg (25.0-35.0); MCHC 34.8 g/dL (31.0-37.0); MCV 87.4 fL (80.0-100.0); Mean Platelet Volume 7.2; Monocytes # (A) 0.3 k/uL (0-1.0); Monocytes % (A) 5 %; Neutrophils # (A) 3.6 k/uL (1.3-7.7); Neutrophils % (A) 63 %; Platelet Count 323 k/uL (150-450); RBC 3.99 m/uL (3.80-5.40); RDW 14.9 % (11.5-15.5); WBC 5.6 k/uL (3.8-10.6)
[2020-07-25 21:31] LABS: Appearance,Urine Clear (Clear); Bilirubin,Urine Negative (Negative); Blood,Urine Negative (Negative); Budding Yeast,Urine Occasional /hpf; Color,Urine Light Yellow; Glucose,Urine (UA) 4+ (Negative); Hyaline Casts,Urine 1 /lpf (0-2); Ketones,Urine 1+ (Negative); Leukocyte Esterase,Urine Moderate (Negative); Mucus,Urine Rare /hpf; Nitrite,Urine Negative (Negative); Protein,Urine 2+ (Negative); RBC,Urine 18 /hpf (0-5); Squamous Epithelial Cell,Urine 4 /hpf (0-4); Urobilinogen,Urine <2.0 mg/dL (<2.0); WBC,Urine 24 /hpf (0-5)
[2020-07-25 21:45] LABS: AST 37 U/L (14-36); African American GFR (CKD) >90 (>60 ml/min/1.73 sqM); Albumin 4.1 g/dL (3.5-5.0); Alkaline Phosphatase 98 U/L (38-126); Blood Urea Nitrogen 10 mg/dL (7-17); Carbon Dioxide 24 mmol/L (22-30); Chloride 92 mmol/L (98-107); Glucose 490 mg/dL (74-99); Non-African American GFR(CKD) >90 (>60 ml/min/1.73 sqM); Total Bilirubin 0.7 mg/dL (0.2-1.3); Total Protein 7.5 g/dL (6.3-8.2)
[2020-07-25 21:49] LABS: Partial Thromboplastin Time 21.6 sec (22.0-30.0)
[2020-07-25 21:55] LABS: ALT 24 U/L (4-34); Anion Gap 15 mmol/L; Magnesium 1.8 mg/dL (1.6-2.3); Potassium 4.5 mmol/L (3.5-5.1); Sodium 131 mmol/L (137-145)
--- NOTE | 2020-07-25 22:06 | XR ---
EXAMINATION TYPE: XR chest 2V DATE OF EXAM: 07/25/2020 COMPARISON: NONE HISTORY: Follow-up stroke. TECHNIQUE: Frontal and lateral views of the chest are obtained. FINDINGS: There is no focal air space opacity, pleural effusion, or pneumothorax seen. The cardiac silhouette size is within normal limits. The osseous structures are intact. IMPRESSION: No acute cardiopulmonary process.
[2020-07-25 22:08] LABS: Specific Gravity,Urine 1.047 (1.001-1.035)
[2020-07-25 22:14] LABS: Prothrombin Time 10.3 sec (9.0-12.0)
[2020-07-25] MEDS ORDERED: INSULIN REGULAR 100 UNIT/ML VIAL IV ONE (22:41)
[2020-07-25] MEDS ORDERED: ACETAMINOPHEN TAB 325 MG TAB PO PRN (22:42)
--- NOTE | 2020-07-25 22:54 | US ---
EXAMINATION TYPE: US venous doppler duplex LE DATE OF EXAM: 07/25/2020 10:39 PM COMPARISON: NONE CLINICAL HISTORY: dvt?. R/O DVT. Patient takes aspirin. SIDE PERFORMED: Bilateral TECHNIQUE: The lower extremity deep venous system is examined utilizing real time linear array sonog fausto with graded compression, doppler sonography and color-flow sonography. VESSELS IMAGED: Common Femoral Vein Deep Femoral Vein Greater Saphenous Vein * Femoral Vein Popliteal Vein Small Saphenous Vein * Proximal Calf Veins (* superficial vessels) Right Leg: No evidence of DVT in veins imaged at this time from prox calf veins to CFV/GSV. Rouleaux flow seen throughout veins imaged. Left Leg: No evidence of DVT in veins imaged at this time from prox calf veins to CFV/GSV. Rouleaux flow seen throughout veins imaged. IMPRESSION: No evidence of deep vein thrombosis in both legs.
[2020-07-25] MEDS: SODIUM CHLORIDE 0.9% 1,000 ML IV SCH (23:03)
--- NOTE | 2020-07-26 01:11 | CT ---
EXAM: CT Angiography Head With Intravenous Contrast CLINICAL HISTORY: CVA TECHNIQUE: Axial computed tomographic angiography images of the head with intravenous contrast. CTDI is 24.8 mGy and DLP is 1038 mGy-cm. This CT exam was performed using one or more of the following dose reduction techniques: automated exposure control, adjustment of the mA and/or kV according to patient size, and/or use of iterative reconstruction technique. MIP reconstructed images were created and reviewed. COMPARISON: No relevant prior studies available. FINDINGS: Right internal carotid artery: No acute findings. Intracranial segment is patent with no significant stenosis. No aneurysm. Right anterior cerebral artery: Unremarkable. No occlusion or significant stenosis. No aneurysm. Right middle cerebral artery: Unremarkable. No occlusion or significant stenosis. No aneurysm. Right posterior cerebral artery: Unremarkable. No occlusion or significant stenosis. No aneurysm. Right vertebral artery: Unremarkable as visualized. Left internal carotid artery: No acute findings. Intracranial segment is patent with no significant stenosis. No aneurysm. Left anterior cerebral artery: Unremarkable. No occlusion or significant stenosis. No aneurysm. Left middle cerebral artery: Unremarkable. No occlusion or significant stenosis. No aneurysm. Left posterior cerebral artery: Unremarkable. No occlusion or significant stenosis. No aneurysm. Left vertebral artery: Unremarkable as visualized. Basilar artery: Unremarkable. No occlusion or significant stenosis. No aneurysm. IMPRESSION: Negative head CTA. EXAM: CT Angiography Neck With Intravenous Contrast CLINICAL HISTORY: CVA TECHNIQUE: Axial computed tomographic angiography images of the neck with intravenous contrast. CTDI is 18.2 mGy and DLP is 95.8 mGy-cm. This CT exam was performed using one or more of the following dose reduction techniques: automated exposure control, adjustment of the mA and/or kV according to patient size, and/or use of iterative reconstruction technique. MIP reconstructed images were created and reviewed. COMPARISON: No relevant prior studies available. FINDINGS: VASCULATURE: Right common carotid artery: Unremarkable. No significant stenosis. No dissection or occlusion. Right internal carotid artery: Unremarkable. Extracranial segment is patent with no significant stenosis. No dissection or occlusion. Right external carotid artery: Unremarkable. No occlusion. Right vertebral artery: Unremarkable. No significant stenosis. No dissection or occlusion. Left common carotid artery: Unremarkable. No significant stenosis. No dissection or occlusion. Left internal carotid artery: Unremarkable. Extracranial segment is patent with no significant stenosis. No dissection or occlusion. Left external carotid artery: Unremarkable. No occlusion. Left vertebral artery: Unremarkable. No significant stenosis. No dissection or occlusion. NECK: Bones/joints: No acute fracture. No dislocation. Soft tissues: Unremarkable as visualized. No mass. IMPRESSION: Negative neck CTA.
[2020-07-26 06:39] LABS: Cholesterol 296 mg/dL (<200); HDL Cholesterol 23 mg/dL (40-60)
[2020-07-26 07:28] LABS: Triglycerides 2040 mg/dL (<150)
[2020-07-26 07:46] LABS: Glucose,Whole Blood 376 mg/dL (75-99)
[2020-07-26] MEDS: PANTOPRAZOLE 40 MG TABLET PO SCH (08:05)
[2020-07-26] MEDS: glipiZIDE 5 MG TAB PO SCH ×2 (08:05→17:55)
[2020-07-26] MEDS: INSULIN ASPART (NovoLOG) 100 UNIT/ML VIAL SQ SCH ×4 (08:06→21:20)
[2020-07-26] MEDS ORDERED: hydroCHLOROthiazide 25 MG TAB PO SCH (09:00)
[2020-07-26] MEDS: LABETALOL 200 MG TAB PO SCH ×2 (09:54→19:55)
[2020-07-26] MEDS ORDERED: CLOPIDOGREL 75 MG TAB PO STA (10:31)
--- NOTE | 2020-07-26 11:37 | P.CNNES ---
History of Present Illness Consult date: 07/26/20 Requesting physician: Ashu Fuchs Reason for Consult: CVA History of Present Illness: Patient is a 24-year-old female, presented from outpatient MRI with abnormal MRI findings of left frontal parietal lobe embolic infarcts. Patient came to the ER at 8 PM. Patient states that last , on 07/18/2020 she developed some bloating sensation in the left side of the rib cage. She came to the ER next day on Wednesday and was diagnosed with "inflamed stomach lining". Patient states that she could not lay on her back, and felt as if someone was laying on her. She felt comfortable only laying on the left side. Patient was sent home. Patient states that since then she has been feeling very tired and could not shake off the feeling. Her vision felt like was in a daze. Her right hand has been feeling like as if it is going asleep for last 7 days. She has not been eating or drinking. Also having some slurred speech. Patient states that yesterday at noon it felt like she has a weight in her right hand. She went to her primary physician, who performed stat MRI of the brain, which showed signs of a stroke, therefore she was referred to the hospital. No previous history of strokes or TIA. Denies any chest pain at this time. CTA of head and neck was negative. EKG shows sinus tachycardia, possible left atrial enlargement. Venous Doppler negative for DVT in either legs. MRI of the brain revealed left frontoparietal lobe embolic infarcts. No acute intracranial hemorrhage or enhancing lesion. Vital signs on arrival blood pressure 173/110, pulse 70 and 17, temperature 98.8. Blood test shows normal CBC, PT/PTT, sodium 131 potassium 4.5, normal renal functions, glucose 490, AST is minimally elevated 37, normal ALT 24. Her total cholesterol is 296, LDL cannot be tested because her triglycerides are very high 2039, and HDL is low 23. UA shows 4+ glucose and 1+ ketones. Brooks virus PCR negative. Her last hemoglobin A1c 5.3 on 05/08/2019. Blood acetone negative. Patient's home medications include labetalol 600 mg twice a day, glipizide 5 mg twice a day, pantoprazole and HCTZ 25 mg. patient does not take any antiplatelet medication. Patient has history of diabetes for the last 2-3 years, not controlled. She is on metformin. Hypertension since age 14. Never smoked, does not drink, no marijuana. She has 1-year-old daughter. Review of Systems As above in detail. All other review of systems completely unremarkable. No chest pain or shortness of breath at this time. Only when she lays flat on the back. Denies any double vision, loss of vision. No hoarseness or sore dysphagia. Patient says that she was feeling slightly off balance while walking, the night prior, but also claims that she always has problem with balance. Past Medical History Past Medical History: Diabetes Mellitus, Hypertension History of Any Multi-Drug Resistant Organisms: None Reported Past Surgical History: Adenoidectomy, Section Additional Past Surgical History / Comment(s): Adnoids removed Past Anesthesia/Blood Transfusion Reactions: No Reported Reaction Past Psychological History: No Psychological Hx Reported Smoking Status: Never smoker Past Alcohol Use History: None Reported Past Drug Use History: None Reported - Past Family History Mother Additional Family Medical History / Comment(s): Colotis, cirrosis of liver, chrones Father Family Medical History: Hypertension Medications and Allergies Home Medications Medication Instructions Recorded Confirmed Type Labetalol HCl [Trandate] 600 mg PO BID 07/19/20 07/25/20 History Pantoprazole Sodium [Protonix] 20 mg PO DAILY #20 tablet. 07/19/20 07/25/20 Rx hydroCHLOROthiazide [Hydrodiuril] 25 mg PO DAILY 07/19/20 07/25/20 History glipiZIDE [Glucotrol] 5 mg PO AC-BID 07/25/20 07/25/20 History Allergies Allergy/AdvReac Type Severity Reaction Status Date / Time cephalexin [From Keflex] Allergy Rash/Hives Verified 07/25/20 23:29 Physical Examination - Vital Signs Vital Signs: Vital Signs Temp Pulse Pulse Resp BP BP Pulse Ox 07/26/20 07:54 98.1 F 77 18 149/100 96 07/26/20 06:00 98.7 F 86 18 138/78 100 07/26/20 03:25 98.8 F 86 18 141/86 96 07/25/20 23:55 98.8 F 97 18 146/106 97 07/25/20 23:04 100 18 161/102 98 07/25/20 20:05 98.8 F 117 H 18 173/110 98 Intake and Output 07/25/20 07/26/20 07/26/20 22:59 06:59 14:59 Intake Total 75 Balance 75 Intake: Intake, IV Titration 75 Amount Sodium Chloride 0.9% 1, 75 000 ml @ 75 mls/hr IV . [id number] KELLEN Rx#:[id number] Other: # Voids 0 Weight 133.356 kg On examination patient is a young female, very pleasant, in no acute distress. Patient is alert awake oriented to time place and person. Speech and language functions are normal. Attention, concentration, fund of knowledge is adequate. On cranial exam exertion pupils are round and reactive to light, visual medrano are full, extraocular muscles are intact with no segments. Face is symmetric, tongue protrudes to the midline, palatal elevation sensation normal, hearing and shoulder shrug normal, facial sensation normal. On muscle strength testing patient has mild right pronation, with no definite drift. Strength is normal in the arms and legs distally and proximally. Reflexes are 1+ to 2 in the arms and legs and plantar is up on the right, down on left. Sensory touch is equal in the face and arms, but is decreased in the right leg as compared to the left leg. No ataxia for [id number] testing although patient is mild to moderately ataxic for [id number] testing only with the right leg. Tone and bulk of muscles normal. Patient states that she did walk to the bathroom and felt perfectly stable. Patient denies any worsening of symptoms since arrival to the hospital. On general exam isn't is no bruit or murmur, peripheral pulses are present. Abdomen soft nontender. Chest is clear. Results - Laboratory Findings CBC and BMP: 07/25/20 21:13 07/25/20 21:13 Abnormal Lab Findings: Abnormal Labs 07/25/20 07/25/20 07/25/20 20:26 21:13 21:13 APTT 21.6 L Sodium 131 L Chloride 92 L Creatinine 0.44 L Glucose 490 H POC Glucose (mg/dL) AST 37 H Triglycerides Cholesterol HDL Cholesterol Ur Specific [place] 1.047 H Urine Protein 2+ H Urine Glucose (UA) 4+ H Urine Ketones 1+ H Ur Leukocyte Esterase Moderate H Urine RBC 18 H Urine WBC 24 H Urine Mucus Rare H Urine Yeast (Budding) Occasional H 07/26/20 07/26/20 04:30 07:44 APTT Sodium Chloride Creatinine Glucose POC Glucose (mg/dL) 376 H AST Triglycerides 2040 H Cholesterol 296 H HDL Cholesterol 23 L Ur Specific [place] Urine Protein Urine Glucose (UA) Urine Ketones Ur Leukocyte Esterase Urine RBC Urine WBC Urine Mucus Urine Yeast (Budding) Assessment and Plan Assessment: * Acute ischemic stroke, (multiple and tiny/small), involving the left MCA vascular territory. CVA, most likely embolic in nature, rule out cardioembolism. Rule out PAF. Current NIH stroke scale 2. Patient not a candidate for TPA or thrombectomy. * Hypertension * Diabetes poorly controlled * Hyperlipidemia * Hypertriglyceridemia * Obesity Plan: * Patient has been started on aspirin 325 mg daily. We will start patient on dual antiplatelet medications with Plavix 75 mg. * Strongly recommend TRACEY to evaluate for embolic source. * Cardiology consultation for cardioembolic stroke * Hemoglobin A1c. Patient's diabetes is poorly controlled. * Telemetry monitoring rule out paroxysmal atrial fibrillation. * Dr. Elmore will cover neurology service over the weekend. Addendum: * Patient underwent TRACEY, which revealed no evidence of cardiac source of embolism. Intact interatrial septum without evidence of PFO or atrial septal defect. Normal left atrial appendage without thrombus. Normal left- ventricular dimension and systolic function. Intact intracardiac valves. * Hemoglobin A1c 10.0, suggestive of poorly controlled diabetes. Suggest optimize diabetes to target A1c <7.0. * Recommend dual antiplatelet medication for 3 weeks and then maintain on aspirin 325 mg. * Lipid panel with cholesterol 296, HDL 23, LDL could not be checked because triglycerides are 2040. Suggest high-dose statins. May need to treat hypertriglyceridemia as well.
[2020-07-26] MEDS ORDERED: fentaNYL (PF) 50 MCG/ML 2 ML AMP ONE (12:49)
[2020-07-26] MEDS ORDERED: IV FLUID CONTINUATION 1,000 ML IV ONE (12:51)
[2020-07-26] MEDS ORDERED: BENZOCAINE SPRAY 1 CAN TOPICAL ONE (12:56)
[2020-07-26] MEDS ORDERED: MIDAZOLAM 2 MG/2 ML VIAL IVP ONE ×2 (13:06→13:08)
[2020-07-26] MEDS ORDERED: fentaNYL (PF) 50 MCG/ML 2 ML AMP IVP ONE (13:06)
--- NOTE | 2020-07-26 13:26 | P.PCN ---
Date of Procedure: 07/26/20 Operative Findings: TRANSESOPHAGEAL ECHOCARDIOGRAM TELEVISION SERVICE ENGINEER: PARI GUTHRIE MD, RPVI INDICATION: This is a 24-year-old female patient was admitted to the hospital with a stroke and she underwent a computed tomography scan and that showed possible embolic etiology. Because of that transesophageal echocardiogram was requested to rule out any cardiac source of embolization and mainly patent foramen ovale SEDATION: Conscious sedation with a sedation length of 15 minutes COMPLICATION: None PROCEDURE DESCRIPTION: After obtaining an informed consent, the patient was brought to transesophageal echocardiogram room. Pulse oximetry and heart monitors were attached to the patient. The patient throat was sprayed using lidocaine. The patient was turne d into left lateral position. After that a bite guard was placed. After an appropriate conscious sedation was initiated, the transesophageal echocardiogram was advanced through a bite guard into the mid esophagus. A 2-D echocardiogram images, color Doppler images, continuous wave images, pulse-wave images, of various cardiac structure were performed. After that the transesophageal echocardiogram probe was advanced into the stomach and fixed to obtain transgastric view was. The probe was brought into the mid esophagus. Inter- atrial septum was interrogated using 2D images, color Doppler images, and then contrast study. After that transesophageal echocardiogram was withdrawn out and upon withdrawing the descending thoracic aorta all the way up to the arch was evaluated. FINDING: The left ventricular dimension and systolic function appeared to be within normal limits. The right ventricular dimension and systolic function appeared to be within normal and the speed the left atrium is mildly dilated. The left atrial appendage appeared to be free from any thrombus. The interatrial septum appeared to be intact without any evidence of PFO or ASD. The aortic valve is trileaflet valve without stenosis or regurgitation. The mitral valve seems to be normal with mild MR only. There is mild tricuspid regurgitation and mild pulmonic insufficiency. No evidence of pericardial effusion seen. CONCLUSION: 1. No evidence of cardiac source of embolization 2. Intact interatrial septum without evidence of patent foramen ovale or atrial septal defect 3. Normal left atrial appendage without thrombus 4. Normal left ventricular dimension and systolic function 5. Normal right ventricular dimension and systolic function 6. Intact intracardiac valves
--- NOTE | 2020-07-26 13:42 | P.HPIM ---
History of Present Illness 24-year-old female came in because of MRI findings showing frontal parietal empiric infarcts. Patient has symptomatic care physician who ordered an MRI because of her complaints of recent tingling numbness in the right hand and the proximal aspect. Without any other weakness. Patient also had some slurred speech patient had some vision abnormality as well although patient is unable to describe what and vision abnormality she has clearly. Patient had a CT angios the head and neck which was negative patient all already had a transesophageal echocardiogram which was negative as well. When questioned patient was also for pleuritic chest pain which is mild on the rest of the chest. Troponin was negative and repeat on the set of troponin cardiology evaluated the patient patient to cardiology T as well I reviewed the EKG with cardiology did not show any significant acute ST-T wave changes. Because of pleuritic nature chest pain after and the a d-dimer which she is very high because of which I'll obtain a CT angios the chest rule out pulmonary embolism. Review of Systems REVIEW OF SYSTEMS: CONSTITUTIONAL: No fever, no malaise, no fatigue. HEENT: No recent visual problems or hearing problems. Denied any sore throat. CARDIOVASCULAR: No orthopnea, PND, no palpitations, no syncope. PULMONARY: No shortness of breath, no cough, no hemoptysis. GASTROINTESTINAL: No diarrhea, no nausea, no vomiting, no abdominal pain. NEUROLOGICAL: No headaches, no weakness, no numbness. HEMATOLOGICAL: Denies any bleeding or petechiae. GENITOURINARY: Denies any burning micturition, frequency, or urgency. MUSCULOSKELETAL/RHEUMATOLOGICAL: Denies any joint pain, swelling, or any muscle pain. ENDOCRINE: Denies any polyuria or polydipsia. The rest of the 14-point review of systems is negative. Past Medical History Past Medical History: Diabetes Mellitus, Hypertension Additional Past Medical History / Comment(s): Pre-eclampsia with her . History of Any Multi-Drug Resistant Organisms: None Reported Past Surgical History: Adenoidectomy, Section Additional Past Surgical History / Comment(s): Adnoids removed Past Anesthesia/Blood Transfusion Reactions: No Reported Reaction Past Psychological History: No Psychological Hx Reported Smoking Status: Never smoker Past Alcohol Use History: None Reported Past Drug Use History: None Reported - Past Family History Mother Additional Family Medical History / Comment(s): Colotis, cirrosis of liver, chrones Father Family Medical History: Hypertension Medications and Allergies Home Medications Medication Instructions Recorded Confirmed Type Labetalol HCl [Trandate] 600 mg PO BID 07/19/20 07/25/20 History Pantoprazole Sodium [Protonix] 20 mg PO DAILY #20 tablet. 07/19/20 07/25/20 Rx hydroCHLOROthiazide [Hydrodiuril] 25 mg PO DAILY 07/19/20 07/25/20 History glipiZIDE [Glucotrol] 5 mg PO AC-BID 07/25/20 07/25/20 History Allergies Allergy/AdvReac Type Severity Reaction Status Date / Time cephalexin [From Keflex] Allergy Rash/Hives Verified 07/25/20 23:29 Physical Exam Vitals: Vital Signs Temp Pulse Pulse Pulse Resp BP BP 07/26/20 13:18 95 24 156/83 07/26/20 13:16 100 26 H 179/92 07/26/20 13:13 97 16 153/95 07/26/20 13:10 89 26 H 180/93 07/26/20 13:09 83 26 H 135/76 07/26/20 13:03 81 26 H 138/78 07/26/20 13:01 81 26 H 145/83 07/26/20 12:55 84 26 H 161/83 07/26/20 12:52 79 24 146/85 07/26/20 12:22 90 20 149/103 07/26/20 09:54 167/100 07/26/20 07:54 98.1 F 77 18 149/100 07/26/20 06:00 98.7 F 86 18 138/78 07/26/20 03:25 98.8 F 86 18 141/86 07/25/20 23:55 98.8 F 97 18 146/106 07/25/20 23:04 100 18 161/102 07/25/20 20:05 98.8 F 117 H 18 173/110 Pulse Ox 07/26/20 13:18 100 07/26/20 13:16 100 07/26/20 13:13 99 07/26/20 13:10 97 07/26/20 13:09 100 07/26/20 13:03 99 07/26/20 13:01 100 07/26/20 12:55 100 07/26/20 12:52 100 07/26/20 12:22 99 07/26/20 09:54 07/26/20 07:54 96 07/26/20 06:00 100 07/26/20 03:25 96 07/25/20 23:55 97 07/25/20 23:04 98 07/25/20 20:05 98 Intake and Output 07/25/20 07/26/20 07/26/20 22:59 06:59 14:59 Intake Total 200 Balance 200 Intake: IV 125 Intake, IV Titration 75 Amount Sodium Chloride 0.9% 1, 75 000 ml @ 75 mls/hr IV . [id number] KELLEN Rx#:[id number] Other: # Voids 0 Weight 133.356 kg 133.356 kg PHYSICAL EXAMINATION: GENERAL: The patient is alert and oriented x3, not in any acute distress. Obese HEENT: Pupils are round and equally reacting to light. EOMI. No scleral icterus. No conjunctival pallor. Normocephalic, atraumatic. No pharyngeal erythema. No thyromegaly. CARDIOVASCULAR: S1 and S2 present. No murmurs, rubs, or gallops. PULMONARY: Chest is clear to auscultation, no wheezing or crackles. ABDOMEN: Soft, nontender, nondistended, normoactive bowel sounds. No palpable organomegaly. MUSCULOSKELETAL: No joint swelling or deformity. EXTREMITIES: No cyanosis, clubbing, or pedal edema. NEUROLOGICAL: Sensory was not examined patient the echo doesn't appear to have focal weakness does have weakness in both hands. The rest of the physical exam deferred to neurology exam SKIN: No rashes. Results CBC & Chem 7: 07/25/20 21:13 07/25/20 21:13 Labs: Abnormal Lab Results - Last 24 Hours (Table) 07/25/20 07/25/20 07/25/20 Range/Units 20:26 21:13 21:13 APTT 21.6 L (22.0-30.0) sec D-Dimer (<0.60) mg/L FEU Sodium 131 L (137-145) mmol/L Chloride 92 L (98-107) mmol/L Creatinine 0.44 L (0.52-1.04) mg/dL Glucose 490 H (74-99) mg/dL POC Glucose (mg/dL) (75-99) mg/dL AST 37 H (14-36) U/L Triglycerides (<150) mg/dL Cholesterol (<200) mg/dL HDL Cholesterol (40-60) mg/dL Ur Specific [place] 1.047 H (1.001-1.035) Urine Protein 2+ H (Negative) Urine Glucose (UA) 4+ H (Negative) Urine Ketones 1+ H (Negative) Ur Leukocyte Esterase Moderate H (Negative) Urine RBC 18 H (0-5) /hpf Urine WBC 24 H (0-5) /hpf Urine Mucus Rare H (None) /hpf Urine Yeast (Budding) Occasional H (None) /hpf 07/26/20 07/26/20 07/26/20 Range/Units 04:30 07:44 11:37 APTT (22.0-30.0) sec D-Dimer 3.18 H (<0.60) mg/L FEU Sodium (137-145) mmol/L Chloride (98-107) mmol/L Creatinine (0.52-1.04) mg/dL Glucose (74-99) mg/dL POC Glucose (mg/dL) 376 H (75-99) mg/dL AST (14-36) U/L Triglycerides 2040 H (<150) mg/dL Cholesterol 296 H (<200) mg/dL HDL Cholesterol 23 L (40-60) mg/dL Ur Specific [place] (1.001-1.035) Urine Protein (Negative) Urine Glucose (UA) (Negative) Urine Ketones (Negative) Ur Leukocyte Esterase (Negative) Urine RBC (0-5) /hpf Urine WBC (0-5) /hpf Urine Mucus (None) /hpf Urine Yeast (Budding) (None) /hpf Microbiology - Last 24 Hours (Table) 07/25/20 20:26 Urine Culture - Preliminary Urine,Voided Thrombosis Risk Factor Assmnt - Choose All That Apply Each Factor Represents 1 point: Obesity (BMI >25), or Other Risk Factors: No Thrombosis Risk Factor Assessment Total Risk Factor Score: 2 Thrombosis Risk Factor Assessment Level: Low Risk Assessment and Plan Plan: Acute ischemic stroke involving the left evidence of refractory to treatment, he appears to be embolic involving frontal parietal lobes. Patient is presently and will antiplatelet therapy, echocardiogram and TRACEY were obtained there is no evidence of a source of emboli. No evidence of patent foraminal ovale or atrial septal defect. -Chest pain pleuritic with lower pulmonary embolism appears to be noncardiac will be due 2 more sets of troponins -Hyponatremia secondary to hydrochlorothiazide which will be held -Hypertension - hyperlipidemia -Obesity -Gastroesophageal reflux disease. Have been due to prophylaxis with Lovenox
[2020-07-26 14:33] LABS: Glucose,Whole Blood 281 mg/dL (75-99)
--- NOTE | 2020-07-26 15:13 | CT ---
CT CHEST FOR PULMONARY EMBOLISM. EXAMINATION TYPE: CT chest angio for PE DATE OF EXAM: 07/26/2020 INDICATION: Elevated d-dimer. CT DLP: 530.3 mGycm, Automated exposure control for dose reduction was used. CONTRAST: Patient injected with 100ml mL of Isovue 370. COMPARISON: None TECHNIQUE: CT of the chest is performed on a spiral scan at 2 mm thick sections. Study is performed with intravenous contrast timed for evaluation for pulmonary embolism. This will limit additional po rtions of the evaluation. 3-D MIP images reconstructed by the technologist are reviewed on the compu ter in the coronal and sagittal planes. FINDINGS: No persistent filling defects are evident to suggest an acute pulmonary embolism. No mediastinal or hilar adenopathy enlarged by CT criteria is evident. The ascending aorta diameter at the level of the main pulmonary artery is 3.4 cm. The main pulmonary artery diameter at the bifur cation is 2.7 cm. Lung windows are clear. No suspicious infiltrates are evident. No peripheral infiltrates are identifi ed. Limited CT section through the upper abdomen. There is moderate fatty infiltration of the liver. IMPRESSIONS: 1. No acute pulmonary embolism. 2. No acute pulmonary process.
[2020-07-26] MEDS: SODIUM CHLORIDE 0.9% 1,000 ML IV SCH (15:23)
[2020-07-26 15:26] LABS: Glucose,Whole Blood 276 mg/dL (75-99)
[2020-07-26 17:54] LABS: Glucose,Whole Blood 375 mg/dL (75-99)
--- NOTE | 2020-07-26 18:42 | ECHOF ---
Referral Reason:cva MEASUREMENTS -------- HEIGHT: 160.0 cm WEIGHT: 133.4 kg BP: 138/78 RVIDd: 4.2 cm (< 3.3) IVSd: 1.6 cm (0.6 - 1.1) LVIDd: 5.0 cm (3.9 - 5.3) LVPWd: 1.4 cm (0.6 - 1.1) IVSs: 2.5 cm LVIDs: 2.5 cm LVPWs: 1.9 cm LAESV Index (A-L): 38.55 ml/m Ao Diam: 3.1 cm (2.0 - 3.7) AV Cusp: 2.4 cm (1.5 - 2.6) LA Diam: 4.6 cm (2.7 - 3.8) MV EXCURSION: 23.351 mm (> 18.000) MV EF SLOPE: 87 mm/s (70 - 150) EPSS: 0.5 cm MV E Delta: 1.27 m/s MV DecT: 148 ms MV A Delta: 0.86 m/s MV E/A Ratio: 1.48 RAP: 5.00 mmHg RVSP: 35.75 mmHg FINDINGS -------- Sinus rhythm. This was a technically difficult study with suboptimal views. The left ventricular size is normal. There is moderate concentric left ventricular hypertrophy. O verall left ventricular systolic function is normal with, an EF between 55 - 60 %. The diastolic fi lling pattern is normal for the age of the patient 13.53. The right ventricle is moderate to severely enlarged. LA is moderately dilated 34-39 ml/m2 The right atrium was not well visualized. Contrast study was performed with 2 iv injections of 8 ccs of agitated normal saline, at rest, and wi th cough. 5.0mg of Lumason was utilized for enhancement of images Cannot rule out PFO. There is no evidence of aortic regurgitation. There is no evidence of aortic stenosis. Fanw-xm-qoekdptk mitral regurgitation is present. Mild tricuspid regurgitation present. There is mild pulmonary hypertension. The right ventricular systolic pressure, as measured by Doppler, is 35.75mmHg. There is no pulmonic regurgitation present. The aortic root size is normal. IVC Not well visulized. There is no pericardial effusion. CONCLUSIONS -------- 1. The left ventricular size is normal. 2. There is moderate concentric left ventricular hypertrophy. 3. Overall left ventricular systolic function is normal with, an EF between 55 - 60 %. 4. The right ventricle is moderate to severely enlarged. 5. LA is moderately dilated 34-39 ml/m2 6. Contrast study was performed with 2 iv injections of 8 ccs of agitated normal saline, at rest, and with cough. 7. Cannot rule out PFO. 8. Ybhp-pi-amybczsk mitral regurgitation is present. 9. Mild tricuspid regurgitation present. 10. There is mild pulmonary hypertension. 11. The right ventricular systolic pressure, as measured by Doppler, is 35.75mmHg. PAINT PREP TECHNICIAN: Marilee Batista RDCS
[2020-07-26 20:30] LABS: Glucose,Whole Blood 325 mg/dL (75-99)
[2020-07-26] MEDS ORDERED: INSULIN DETEMIR (LEVEMIR) 100 UNIT/ML SYR SQ SCH (21:00)
[2020-07-26] MEDS ORDERED: ATORVASTATIN 80 MG TAB PO SCH (21:30)
[2020-07-26] MEDS: ASPIRIN 325 MG TAB PO SCH (21:59)
[2020-07-27 01:40] LABS: Glucose,Whole Blood 237 mg/dL (75-99)
[2020-07-27] MEDS: SODIUM CHLORIDE 0.9% 1,000 ML IV SCH (01:47)
[2020-07-27 02:37] VITALS: RESP 18
[2020-07-27 06:22] LABS: Glucose,Whole Blood 321 mg/dL (75-99)
[2020-07-27] MEDS: INSULIN ASPART (NovoLOG) 100 UNIT/ML VIAL SQ SCH ×2 (06:27→15:07)
[2020-07-27] MEDS: PANTOPRAZOLE 40 MG TABLET PO SCH (06:29)
[2020-07-27] MEDS: glipiZIDE 5 MG TAB PO SCH (06:29)
[2020-07-27] MEDS ORDERED: CLOPIDOGREL 75 MG TAB PO SCH (09:00)
[2020-07-27] MEDS ORDERED: ENOXAPARIN 40 MG/0.4 ML SYRINGE SQ SCH (09:00)
[2020-07-27 10:14] LABS: African American GFR (CKD) >90 (>60 ml/min/1.73 sqM); Anion Gap 7 mmol/L; Blood Urea Nitrogen 7 mg/dL (7-17); Calcium 8.8 mg/dL (8.4-10.2); Carbon Dioxide 26 mmol/L (22-30); Chloride 99 mmol/L (98-107); Glucose 297 mg/dL (74-99); Non-African American GFR(CKD) >90 (>60 ml/min/1.73 sqM); Potassium 3.9 mmol/L (3.5-5.1); Sodium 132 mmol/L (137-145)
[2020-07-27] MEDS: ASPIRIN 325 MG TAB PO SCH (10:18)
[2020-07-27] MEDS: LABETALOL 200 MG TAB PO SCH (10:48)
[2020-07-27 12:09] LABS: Glucose,Whole Blood 331 mg/dL (75-99)
--- NOTE | 2020-07-27 12:19 | P.DS ---
Providers Date of admission: 07/25/20 22:44 Attending physician: Brad Hogan Consults: 07/25/20 22:43 Consult Physician Urgent Consulting Provider: Juan Burnette Consult Reason/Comments: CVA Do you want consulting provider notified?: Already Contacted 07/26/20 10:36 Consult Physician Urgent Consulting Provider: Vito Christine Consult Reason/Comments: TRACEY Do you want consulting provider notified?: Yes Primary care physician: [facility] Course: 24-year-old female came in because of MRI findings showing frontal parietal empiric infarcts. Patient has symptomatic care physician who ordered an MRI because of her complaints of recent tingling numbness in the right hand and the proximal aspect. Without any other weakness. Patient also had some slurred speech patient had some vision abnormality as well although patient is unable to describe what and vision abnormality she has clearly. Patient had a CT angios the head and neck which was negative patient all already had a transesophageal echocardiogram which was negative as well. When questioned patient was also for pleuritic chest pain which is mild on the rest of the chest. Troponin was negative and repeat on the set of troponin cardiology evaluated the patient patient to cardiology T as well I reviewed the EKG with cardiology did not show any significant acute ST-T wave changes. Because of pleuritic nature chest pain after and the a d-dimer which she is very high because of which I'll obtain a CT angios the chest rule out pulmonary embolism. 07/27/2020 patient was monitored overnight clinical doing well still complaining of numbness in the right hand. Patient will be discharged on 2 antiplatelet therapy, statin. Not sure as numbness is related to TIA may be a local loud related. Rule out pulmonary embolism with a CT angios the chest which was negative echocardiogram is within normal limits, TRACEY as mentioned above. Patient does have a hyper lipidemia and hypertriglyceridemia. Patient is being switched to lisinopril from hydrochlorothiazide considering her history of type 2 diabetes mellitus and patient will need the long-acting insulin patient was started on 30 units of long-acting insulin may need to increase the dose of glipizide which can be done as an outpatient and patient is asked to check blood sugars twice a day. PHYSICAL EXAMINATION: GENERAL: The patient is alert and oriented x3, not in any acute distress. Well developed, well nourished. HEENT: Pupils are round and equally reacting to light. EOMI. No scleral icterus. No conjunctival pallor. Normocephalic, atraumatic. No pharyngeal erythema. No thyromegaly. CARDIOVASCULAR: S1 and S2 present. No murmurs, rubs, or gallops. PULMONARY: Chest is clear to auscultation, no wheezing or crackles. ABDOMEN: Soft, nontender, nondistended, normoactive bowel sounds. No palpable organomegaly. MUSCULOSKELETAL: No joint swelling or deformity. EXTREMITIES: No cyanosis, clubbing, or pedal edema. NEUROLOGICAL: Gross neurological examination did not reveal any focal deficits. In severity exam was not done SKIN: No rashes. Assessment and Plan Plan: Acute ischemic stroke involving the left MCA territory, he appears to be embolic involving left frontal parietal lobes. She and is being discharged on dual antiplatelet therapy and statin, echocardiogram and TRACEY were obtained there is n o evidence of a source of emboli. No evidence of patent foraminal ovale or atrial septal defect. -Chest pain pleuritic with lower pulmonary embolism appears to be noncardiac will be due 2 more sets of troponins -Hyponatremia secondary to hydrochlorothiazide was discontinued and patient was started on lisinopril -Hypertension - hyperlipidemia -Obesity -Gastroesophageal reflux disease. Patient Condition at Discharge: Stable Plan - Discharge Summary Discharge Rx Participant: Yes New Discharge Prescriptions: New Atorvastatin [Lipitor] 80 mg PO HS #30 tab Clopidogrel [Plavix] 75 mg PO DAILY #30 tab Lisinopril [Prinivil] 5 mg PO DAILY #30 tab Aspirin 81 mg PO DAILY #30 chewable Insulin Glargine,Hum.rec.anlog [Lantus Solostar] 30 unit SQ DAILY #5 pen Continue Pantoprazole Sodium [Protonix] 20 mg PO DAILY #20 tablet. Labetalol HCl [Trandate] 600 mg PO BID glipiZIDE [Glucotrol] 5 mg PO AC-BID Discontinued hydroCHLOROthiazide [Hydrodiuril] 25 mg PO DAILY Discharge Medication List Labetalol HCl [Trandate] 600 mg PO BID 07/19/20 [History] Pantoprazole Sodium [Protonix] 20 mg PO DAILY #20 tablet. 07/19/20 [Rx] glipiZIDE [Glucotrol] 5 mg PO AC-BID 07/25/20 [History] Aspirin 81 mg PO DAILY #30 chewable 04/10/21 [Rx] Atorvastatin [Lipitor] 80 mg PO HS #30 tab 07/27/20 [Rx] Clopidogrel [Plavix] 75 mg PO DAILY #30 tab 07/27/20 [Rx] Insulin Glargine,Hum.rec.anlog [Lantus Solostar] 30 unit SQ DAILY #5 pen 07/27/20 [Rx] Lisinopril [Prinivil] 5 mg PO DAILY #30 tab 07/27/20 [Rx] Follow up Appointment(s)/Referral(s): Margaret Spears MD [REFERRING] - 1 Week Vito Christine MD [STAFF PHYSICIAN] - 1 Week Yessenia Mustafa MD [Primary Care Provider] - 3 Days
[2020-07-27 13:41] VITALS: BP 136/79; PULSE 85; TEMP 98.9
[2020-07-27 15:11] VITALS: BMI 52.0
== END 2020-07-27 15:00 | disposition home or self-care (01) | DRG 65 ==
LOC: EC 19:59 → 3SCARD 22:44
PROVIDERS: ADMIT Hospitalist; ATTEND Hospitalist
PROC: B24BZZ4 Ultrasonography of Heart with Aorta, Transesophageal (ICD-10-PCS; principal; 2020-07-25)
DX: I63.412 Cerebral infarction due to embolism of left middle cerebral artery (principal); E87.1 Hypo-osmolality and hyponatremia; Z68.43 Body mass index [BMI] 50.0-59.9, adult; I10 Essential (primary) hypertension; E66.9 Obesity, unspecified; E11.65 Type 2 diabetes mellitus with hyperglycemia; E78.1 Pure hyperglyceridemia; R29.702 NIHSS score 2; E78.5 Hyperlipidemia, unspecified; T50.2X5A Adverse effect of carbonic-anhydrase inhibitors, benzothiadiazides and other diuretics, initial encounter; Z20.822 Contact with and (suspected) exposure to COVID-19; K21.9 Gastro-esophageal reflux disease without esophagitis; R07.89 Other chest pain; Z82.49 Family history of ischemic heart disease and other diseases of the circulatory system; Z83.79 Family history of other diseases of the digestive system; Z79.84 Long term (current) use of oral hypoglycemic drugs; Z79.899 Other long term (current) drug therapy; Z88.1 Allergy status to other antibiotic agents
CPT/HCPCS: 36415; 70496; 70498; 70553; 71046; 71275; 80048; 80053; 80061; 81001; 81025; 83036; 83605; 83735; 84484; 85025; 85379; 85610; 85730; 87040; 87086; 87635; 93005; 93306; 93312; 93320; 93325; 93970; 96361; 96374; 99285

== ENCOUNTER → 2020-07-25 | Outpatient (CLI) | payer OTHER ==
--- NOTE | 2020-07-25 18:59 | MR ---
EXAMINATION TYPE: MR brain wo/w con DATE OF EXAM: 07/25/2020 COMPARISON: None available. HISTORY: Bilateral hand weakness, vision changes, difficulty finding words, evaluate for stroke. TECHNIQUE: Multiplanar, multisequence images of the brain and brainstem is performed without and with IV contras t, utilizing 13 mL intravenous Gadavist . FINDINGS: Diffusion weighted images demonstrate scattered multiple foci of restricted diffusion in th e left frontoparietal lobe. No acute intracranial hemorrhage, midline shift or hydrocephalus. There is no extra-axial fluid collection or significant white matter signal abnormality. The ventricular s ystem and cisternal spaces are normal in size and appearance. The brain volume is age appropriate. Midline structures demonstrate normal morphology. The craniocervical junction appears within normal limits. Post contrast images demonstrate no abnormal enhancement. The dural venous sinuses appear pa tent. The visualized sinuses are clear and the globes are intact. IMPRESSION: Left frontoparietal lobe embolic infarcts. No acute intracranial hemorrhage or enhancing lesions.
== END | disposition home or self-care (01) ==
LOC: RADMRIMAIN 17:42
PROVIDERS: ATTEND Nurse Practitioner Family
DX: I63.49 Cerebral infarction due to embolism of other cerebral artery (principal)
CPT/HCPCS: 70553; A9585

== ENCOUNTER → 2020-12-10 | Outpatient (CLI) | payer OTHER ==
[2020-12-10 23:22] LABS: HCT 34.3 % (37.2-46.3); HGB 10.8 g/dL (12.0-15.0); MCH 27.1 pg (27.0-32.0); MCHC 31.5 g/dL (32.0-37.0); MCV 86.2 fL (80.0-97.0); Mean Platelet Volume 9.5 fL (9.5-12.2); Platelet Count 274 X 10*3/uL (140-440); RBC 3.98 X 10*6/uL (4.10-5.20); RDW 14.6 % (11.5-14.5); WBC 7.13 X 10*3/uL (4.50-10.00)
[2020-12-11 15:33] LABS: African American GFR (CKD) 145.8 (60.0-200.0); Non-African American GFR(CKD) 125.8 (60.0-200.0)
[2020-12-11 16:19] LABS: HCG,Quantitative Serum 2381.5 mIU/mL
== END | disposition home or self-care (01) ==
LOC: LABWHC1 16:06
PROVIDERS: ATTEND Obstetrics & Gynecology
DX: O00.109 Unspecified tubal pregnancy without intrauterine pregnancy (principal); Z3A.00 Weeks of gestation of pregnancy not specified
CPT/HCPCS: 36415; 82565; 84450; 84460; 84520; 84702; 85027; 86850; 86900; 86901

== ENCOUNTER → 2020-12-11 | Outpatient (CLI) | payer OTHER ==
[~2020-12-11] MED LIST: METHOTREXATE SODIUM (PF) 25 MG/ML 2 ML VIAL IM ONE
[2020-12-11 11:43] VITALS: BP 157/91; PULSE 84; RESP 16; TEMP 98.7
== END ==
LOC: PROCWHC3 11:13
PROVIDERS: ATTEND Obstetrics & Gynecology
DX: O00.109 Unspecified tubal pregnancy without intrauterine pregnancy (principal); Z3A.35 35 weeks gestation of pregnancy; Z88.1 Allergy status to other antibiotic agents
CPT/HCPCS: 96402; J9260

== ENCOUNTER → 2020-12-14 | Outpatient (CLI) | payer OTHER ==
[2020-12-14 16:54] LABS: MCH 27.1 pg (27.0-32.0); MCHC 31.3 g/dL (32.0-37.0); MCV 86.7 fL (80.0-97.0); Mean Platelet Volume 9.7 fL (9.5-12.2); Platelet Count 242 X 10*3/uL (140-440); RBC 3.69 X 10*6/uL (4.10-5.20); RDW 14.7 % (11.5-14.5); WBC 7.63 X 10*3/uL (4.50-10.00)
== END | disposition home or self-care (01) ==
LOC: LABWHC1 11:05
PROVIDERS: ATTEND Obstetrics & Gynecology
DX: O00.109 Unspecified tubal pregnancy without intrauterine pregnancy (principal); Z3A.00 Weeks of gestation of pregnancy not specified
CPT/HCPCS: 36415; 84702; 85027

== ENCOUNTER → 2020-12-17 | Outpatient (CLI) | payer OTHER ==
[2020-12-17 23:20] LABS: HCT 33.7 % (37.2-46.3); HGB 10.5 g/dL (12.0-15.0); MCH 26.9 pg (27.0-32.0); MCHC 31.2 g/dL (32.0-37.0); MCV 86.2 fL (80.0-97.0); Mean Platelet Volume 9.3 fL (9.5-12.2); Platelet Count 342 X 10*3/uL (140-440); RBC 3.91 X 10*6/uL (4.10-5.20); RDW 14.7 % (11.5-14.5); WBC 5.28 X 10*3/uL (4.50-10.00)
[2020-12-18 16:35] LABS: African American GFR (CKD) 145.8 (60.0-200.0); Non-African American GFR(CKD) 125.8 (60.0-200.0)
[2020-12-18 18:02] LABS: HCG,Quantitative Serum 3122.2 mIU/mL
== END | disposition home or self-care (01) ==
LOC: LABWHC1 15:59
PROVIDERS: ATTEND Obstetrics & Gynecology
DX: O00.109 Unspecified tubal pregnancy without intrauterine pregnancy (principal); Z3A.00 Weeks of gestation of pregnancy not specified
CPT/HCPCS: 36415; 82565; 84450; 84460; 84520; 84702; 85027

== ENCOUNTER → 2020-12-25 | Outpatient (CLI) | payer OTHER ==
[~2020-12-25] MED LIST changes: +METHOTREXATE SODIUM (PF) 25 MG/ML 2 ML VIAL IM NR; -METHOTREXATE SODIUM (PF) 25 MG/ML 2 ML VIAL IM ONE
[2020-12-25 10:27] VITALS: BP 126/80; PULSE 85; RESP 16; TEMP 97.7
[2020-12-25 11:01] LABS: Basophils % (A) 0 %; Eosinophils # (A) 0.1 k/uL (0-0.7); Eosinophils % (A) 2 %; HCT 35.1 % (34.0-46.0); HGB 11.6 gm/dL (11.4-16.0); Lymphocytes # (A) 1.6 k/uL (1.0-4.8); Lymphocytes % (A) 30 %; MCH 27.6 pg (25.0-35.0); MCV 83.8 fL (80.0-100.0); Mean Platelet Volume 7.8; Monocytes # (A) 0.2 k/uL (0-1.0); Monocytes % (A) 4 %; Neutrophils # (A) 3.2 k/uL (1.3-7.7); Neutrophils % (A) 62 %; Platelet Count 324 k/uL (150-450); RBC 4.19 m/uL (3.80-5.40); WBC 5.1 k/uL (3.8-10.6)
[2020-12-25 11:06] LABS: ALT 22 U/L (4-34); AST 24 U/L (14-36); African American GFR (CKD) >90 (>60 ml/min/1.73 sqM); Blood Urea Nitrogen 9 mg/dL (7-17); Non-African American GFR(CKD) >90 (>60 ml/min/1.73 sqM)
[2020-12-25 11:17] LABS: HCG,Quantitative Serum 1174.6 mIU/mL
== END ==
LOC: PROCWHC3 10:03
PROVIDERS: ATTEND Obstetrics & Gynecology
DX: O00.109 Unspecified tubal pregnancy without intrauterine pregnancy (principal); Z3A.00 Weeks of gestation of pregnancy not specified
CPT/HCPCS: 82565; 84450; 84460; 84520; 85025; 84702; 96401; J9260

== ENCOUNTER → 2021-01-27 | Outpatient (CLI) | payer OTHER | END | disposition home or self-care (01) | LOC: LABWHC1 12:55 | PROVIDERS: ATTEND Obstetrics & Gynecology | DX: O00.90 Unspecified ectopic pregnancy without intrauterine pregnancy (principal); Z3A.00 Weeks of gestation of pregnancy not specified | CPT/HCPCS: 36415; 84702 ==

== ENCOUNTER → 2021-02-01 | Outpatient (CLI) | payer OTHER | END | disposition home or self-care (01) | LOC: LABWHC1 11:14 | PROVIDERS: ATTEND Obstetrics & Gynecology | DX: O00.109 Unspecified tubal pregnancy without intrauterine pregnancy (principal); Z3A.00 Weeks of gestation of pregnancy not specified | CPT/HCPCS: 36415; 84702 ==

== ENCOUNTER → 2021-02-15 | Outpatient (CLI) | payer OTHER | END | disposition home or self-care (01) | LOC: LABWHC1 11:31 | PROVIDERS: ATTEND Obstetrics & Gynecology | DX: O00.109 Unspecified tubal pregnancy without intrauterine pregnancy (principal); Z3A.00 Weeks of gestation of pregnancy not specified | CPT/HCPCS: 36415; 84702 ==

== ENCOUNTER → 2021-02-21 | Outpatient (CLI) | payer OTHER | END | disposition home or self-care (01) | LOC: LABWHC1 12:34 | PROVIDERS: ATTEND Obstetrics & Gynecology | DX: O00.109 Unspecified tubal pregnancy without intrauterine pregnancy (principal); Z3A.00 Weeks of gestation of pregnancy not specified | CPT/HCPCS: 36415; 84702 ==

== ENCOUNTER → 2021-08-21 | Outpatient (CLI) | payer OTHER ==
[2021-08-21 14:19] VITALS: BP 156/97; PULSE 94; RESP 18
--- NOTE | 2021-08-21 14:23 | P.CON ---
Consult Note - . Consult date: 08/21/21 Assessment/Plan:: HISTORY OF PRESENT ILLNESS: 26 yr old female as a referral from Dr. Spears with severe and chronic headaches secondary to occipital neuralgia and possible cervicogenic headaches for evaluation. MRI of the brain from 07/26/21 reviewed. No cervical MRI on file. Pt states her headaches are 4/10 in intensity, sharp, stabbing, shooting in character with radiation of pain up the scalp and towards her forehead, L > R. Pain is provoked as high as 10 out of 10 in intensity with extension. Pain is relieved with medications (Tylenol OTC, Motrin OTC), daily home stretching regimen and rest. Past Medical History: Diabetes Mellitus, Hypertension Past Surgical History: Adenoidectomy, Section Social History: Negative x 3 Family History: Mother- Colitis, Cirrhosis of Liver, Crohn's Disease. Father- HTN. All: Cephalexin Meds: See list REVIEW OF ORGAN SYSTEMS: CONSTITUTIONAL: No fevers or chills. No recent weight loss. HEENT: No visual acuity loss, eye pain, difficulties with hearing. No nosebleeds. No difficulty swallowing. RESPIRATORY: Denies any troubles with breathing or dyspnea on exertion. CARDIOVASCULAR: Denies any chest pain, palpitations, or recent heart attacks. GASTROINTESTINAL: Denies fatty food intolerance. Has change in bowel habits and gas bloat. GENITOURINARY: Denies any blood in urine. Has increased urinary frequency. NEUROLOGICAL: + numbness and tingling along the distal extremities. No seizure disorders or headaches. MUSCULOSKELETAL: + back pain SKIN: No skin cancer. No rash. PSYCHIATRIC: Denies current depression or suicidal thoughts. ENDOCRINE: Denies current thyroid disorders. Denies any blood sugar glucose intolerance. HEME/LYMPHATIC: Denies any lumps and bumps around the neck. History of deep venous thrombosis. ALLERGY/IMMUNOLOGY: No immunoglobulin therapy. No immune deficiencies. BREAST: Denies current breast lumps, pain or nipple discharge. Physical Examinations : Constitutional : Cooperative , not in acute distress . HEENT: Neck supple. No Lymphadenopathy. Normal thyroid size . +BL G.O.N. Eyes no ptosis , no icterus, no photophobia . Hearing intact. Normal oropharynx. No Thrush. Respiratory : Chest clear to auscultations bilaterally. No wheezing. No rhonchi. Cardiovascular : Regular rate and rhythm , S1 / S2. No S3 . No S4. Gastrointestinal : Abdomen soft. No tenderness. Bowel sounds x 4. No organomegaly . Genitourinary : Deferred. Neurologic : Cranial nerve II to XII intact. No focal neurological deficits. Psychiatric : alert & oriented x 3. Matching mood & appropriate affect. Judgment & insight intact. Lymphatic No Lymphadenopathy. Musculoskeletal : Cervical Spine Motor strength in the deltoid and biceps: Normal right side. Normal Left side Motor strength biceps and the wrist extensors: Normal right side . Normal left side Motor strength in the triceps muscle: Normal right side. Normal left side Deep tendon reflexes: Normal at the biceps. Normal at Brachioradialis. Normal at triceps Cervical facet loading test: positive bilaterally Spurling test: positive bilaterally Neck distraction test: positive bilaterally Azra sign: positive bilaterally Lumbar spine Motor strength lower extremities ,thigh and legs 5/5 Right side , 5/5 Left side Deep tendon reflexes : Normal Knee Jerk. Normal Ankle Jerk Vertebral body tenderness over Lumbar facet Loading Test: positive Right / positive Left Range of motion of the lumbar spine Flexion 30 degrees, extension 10 degrees Straight Leg Raise test: Left/ Right positive at degree Antonieta test: positive right / positive left. Severe tenderness over the Sacroiliac joint on the Right / Left sides Gaenslen test: positive bilaterally Seated flexion test: positive bilaterally. Imaging: MRI of the brain without contrast from 07/26/21 reviewed. Assessment/ Plan : Occipital Neuralgia Recommendation of BL O.N. injection(s). May need a series of injections, up to 3 within a 6 mo period, for optimal pain relief. Will also explore cervicogenic headache if pain is not relieved with O.N. treatment. Risks, benefits of procedure discussed and patient verbalized understanding. Denies aspirin or anti- coagulant use. Admits to a medical history of diabetes. Protocol for discontinuation/ continuation of medications sean procedure discussed. All questions answered. I have spent greater than 50 minutes on patient care today. Dr Bryant was available by phone for the evaluation of this patient. The time was used to review the medical records including relevant urine studies and Prescription history (MAPs), review of the available imaging, evaluation and examination of the patient, coordination of care with the medical staff and if applicable referring physicians, as well as creation of the medical record PQRS Measure Charge Sheet Mode of Arrival: Ambulatory - Pain Location Head Non-Pharmacological Interventions: Home Exercise, Relaxation Technique, Stretching Pharmacological Interventions: PRN Medication PQRS Narrative: Smoking Status Never smoker Blood Pressure 156/97 Pain Intensity [Head] 4 Scale Used Numeric (1 - 10) Home Medications: Ambulatory Orders Labetalol HCl [Trandate] 600 mg PO BID 07/19/20 Pantoprazole Sodium [Protonix] 20 mg PO DAILY #20 tablet.dr 07/19/20 glipiZIDE [Glucotrol] 5 mg PO AC-BID 07/25/20 Aspirin 81 mg PO DAILY #30 chewable 07/27/20 Atorvastatin [Lipitor] 80 mg PO HS #30 tab 07/27/20 Clopidogrel [Plavix] 75 mg PO DAILY #30 tab 07/27/20 Insulin Glargine,Hum.rec.anlog [Lantus Solostar] 30 unit SQ DAILY #5 pen 07/27/20 Lisinopril [Prinivil] 5 mg PO DAILY #30 tab 07/27/20
== END ==
LOC: PNWHC3 13:04
PROVIDERS: ATTEND Specialist
DX: M54.81 Occipital neuralgia (principal); E11.9 Type 2 diabetes mellitus without complications; I10 Essential (primary) hypertension; Z79.4 Long term (current) use of insulin; Z79.84 Long term (current) use of oral hypoglycemic drugs; Z88.1 Allergy status to other antibiotic agents
CPT/HCPCS: 99211

== ENCOUNTER 2021-09-30 08:45 | Day surgery (SDC) | payer OTHER ==
[2021-09-29 10:34] VITALS: BMI 60.2
[~2021-09-30 08:45] MED LIST changes: -METHOTREXATE SODIUM (PF) 25 MG/ML 2 ML VIAL IM NR; +MIDAZOLAM 2 MG/2 ML VIAL ONE; +ROPIVACAINE 5MG/ML 20ML VIAL ONE; +fentaNYL (PF) 50 MCG/ML 2 ML AMP ONE; +methylPREDNISolone ACETATE 40 MG/ML 1 ML VIAL ONE
[2021-09-30] MEDS ORDERED: LIDOCAINE 1% (10MG/ML) FOR IV START INTRADERMA PRN (09:03)
[2021-09-30] MEDS ORDERED: LACTATED RINGERS 1,000 ML IV SCH (09:03)
[2021-09-30 09:08] VITALS: TEMP 96.9
[2021-09-30] MEDS ORDERED: LIDOCAINE 1% (10MG/ML) FOR IV START INTRADERMA ONE (09:28)
[2021-09-30 09:31] LABS: Glucose,Whole Blood 144 mg/dL (75-99)
--- NOTE | 2021-09-30 10:05 | P.PCN ---
Date of Procedure: 09/30/21 Procedure(s) Performed: Preoperative diagnoses= 1- Greater occipital neuralgia Postoperative diagnoses= same as preoperative diagnosis. Procedure= Bilateral Greater occipital nerve block Anesthesia= moderate sedation with Versed 2 mg and fentanyl 100 micrograms . Estimated blood loss=minimal. Procedure indication= the patient had a history of severe chronic neck pain ,and headache, diagnosed with occipital neuralgia exam was positive for severe tenderness over the occipital nerve bilaterally, she will be a good candidate occipital nerve block, patient failed conservative management Procedure description= the patient was seen and identified in the preoperative holding area, risks and benefits and alternative of the procedure and possible complications discussed with the patient, and he agreed with the preceding, patient signed the consent, an IV was started, and vital signs were monitored and were stable throughout the procedure, patient was placed in the sitting position or table and the neck area was prepped and draped with a sterile fashion, vital signs were closely monitored during the procedure, 25-gauge needle advanced 1 inch lateral to the occipital protuberance on the right side, at the location of the right occipital nerve , then after negative aspiration for heme and CSF and there was no paresthesia during the injection, 6 ml of Robivacaine 0.5% and 20 mg of Depo-Medrol injected after negative aspiration, the needle removed, and the entire same procedure was repeated for the left Greater occipital nerve. Patient tolerated the procedure well without any complication, The patient returned to supine position after the back was cleaned and a Band- Aid applied, the patient transported to recovery room in stable condition and he was monitored for 30 minutes before he was discharged home and then patient was reexamined before going home and patient was discharged in stable condition and patient will follow up with the pain clinic in a few weeks.
[2021-09-30] MEDS ORDERED: IV FLUID CONTINUATION 800 ML IV ONE (10:13)
[2021-09-30 10:16] VITALS: RESP 16
[2021-09-30 10:51] VITALS: BP 113/72; PULSE 74
== END 2021-09-30 11:06 | disposition home or self-care (01) ==
LOC: ORPAIN 08:45
PROVIDERS: ATTEND Specialist
DX: M54.81 Occipital neuralgia (principal); Z88.1 Allergy status to other antibiotic agents
CPT/HCPCS: 81025; 64405; J2250; J1030; J3010; J2795; 99152

== ENCOUNTER → 2021-11-12 | Outpatient (CLI) | payer OTHER ==
--- NOTE | 2021-11-12 15:09 | P.PN ---
Subjective Progress Note Date: 11/12/21 26 yr old female as a referral from Dr. Spears with severe and chronic headaches secondary to occipital neuralgia and possible cervicogenic headaches , currently we did bilateral occipital nerve block which helped her pain and headache around 70% and she is here for follow-up visit she continued to have severe headache. MRI of the brain from 07/26/21 reviewed. No cervical MRI on file. Pt states her headaches are 4/10 in intensity, sharp, stabbing, shooting in character with radiation of pain up the scalp and towards her forehead, L > R. Pain is provoked as high as 10 out of 10 in intensity with extension. Pain is relieved with medications (Tylenol OTC, Motrin OTC), daily home stretching regimen and rest. Objective - Vital Signs Vital signs: Intake & Output 11/11/21 11/12/21 11/12/21 18:59 06:59 18:59 Weight 158.757 kg - Exam Physical Examinations : Constitutional : Cooperative , not in acute distress . HEENT: Neck supple. No Lymphadenopathy. Normal thyroid size . +BL G.O.N. Eyes no ptosis , no icterus, no photophobia . Hearing intact. Normal oropharynx. No Thrush. Neurologic : Cranial nerve II to XII intact. No focal neurological deficits. Psychiatric : alert & oriented x 3. Matching mood & appropriate affect. Judgment & insight intact. Lymphatic No Lymphadenopathy. Musculoskeletal : Cervical Spine Motor strength in the deltoid and biceps: Normal right side. Normal Left side Motor strength biceps and the wrist extensors: Normal right side . Normal left side Motor strength in the triceps muscle: Normal right side. Normal left side Deep tendon reflexes: Normal at the biceps. Normal at Brachioradialis. Normal at triceps Cervical facet loading test: positive bilaterally Spurling test: positive bilaterally Neck distraction test: positive bilaterally Azra sign: positive bilaterally Lumbar spine Motor strength lower extremities ,thigh and legs 5/5 Right side , 5/5 Left side Assessment and Plan Assessment: Assessment/ Plan : Occipital Neuralgia And had 70% improvement of her headache after the first bilateral occipital nerve block Recommendation of repeat BL O.N. injection(s). May need a series of injections, up to 3 within a 6 mo period, for optimal pain relief. Will also explore cervicogenic headache if pain is not relieved with O.N. treatment. Risks, benefits of procedure discussed and patient verbalized understanding. Denies aspirin or anti- coagulant use. Admits to a medical history of diabetes. Protocol for discontinuation/ continuation of medications sean procedure discussed. All questions answered. note= H and blood pressure elevated and antiarthritic blood pressure more than 100, a discussed with the patient and explained to her the need to go to her primary care or seated emergency room CANDELARIA because he had hypertensive urgency and she has to take care of her blood pressure CANDELAR[place] Time with Patient: Less than 30
[2021-11-12 15:19] VITALS: BP 157/110; PULSE 93; RESP 18; TEMP 98.5
== END ==
LOC: PNWHC3 13:48
PROVIDERS: ATTEND Specialist
DX: M54.81 Occipital neuralgia (principal); Z88.1 Allergy status to other antibiotic agents
CPT/HCPCS: 99211

== ENCOUNTER 2022-01-06 10:05 | Day surgery (SDC) | payer OTHER ==
[~2022-01-06 10:05] MED LIST changes: +LACTATED RINGERS 1,000 ML IV SCH; -MIDAZOLAM 2 MG/2 ML VIAL ONE; -ROPIVACAINE 5MG/ML 20ML VIAL ONE; -fentaNYL (PF) 50 MCG/ML 2 ML AMP ONE; -methylPREDNISolone ACETATE 40 MG/ML 1 ML VIAL ONE
[2022-01-06 11:00] VITALS: RESP 16; TEMP 98.6
[2022-01-06 11:00] LABS: Glucose,Whole Blood 171 mg/dL (70-110)
[2022-01-06] MEDS ORDERED: ROPIVACAINE 5 MG/ML 20 ML AMPULE ONE (11:07)
[2022-01-06] MEDS ORDERED: fentaNYL (PF) 50 MCG/ML 2 ML AMP ONE (11:07)
[2022-01-06] MEDS ORDERED: methylPREDNISolone ACETATE 40 MG/ML 1 ML VIAL ONE (11:07)
[2022-01-06] MEDS ORDERED: MIDAZOLAM 2 MG/2 ML VIAL ONE (11:07)
--- NOTE | 2022-01-06 11:22 | P.PCN ---
Date of Procedure: 01/06/22 Description of Procedure: PREOPERATIVE DIAGNOSIS: Occipital neuralgia, and headaches POSTOPERATIVE DIAGNOSIS: Occipital neuralgia, and headaches PROCEDURES: 1. Bilateral Greater occipital nerve block SURGEON: Sandi Garcia ANESTHESIA: Local and IV sedation : Versed 2 mg, and [id number] g. Sedation supervision start time: 1106 Sedation supervision ended time: 1116 EBL: None. Specimen removed: None PROCEDURE INDICATIONS: This patient with a history of chronic headaches, and occipital neuralgia. Patient tried conservative therapy. Came here for intervention management. Procedure and Findings: The patient was seen and examined and written informed consent was obtained after explaining the risks, benefits and alternative of the procedure to the patient. As per patient request for anxiety IV was started in the preoperative holding area for sedation. The patient was positioned in the sitting position with the head slightly flexed and forehead rested on a pillow. By palpation, the external occipital protuberance and mastoid process were identified and mid point in between was located. The target point for greater occipital nerve was just medial to the occipital artery pulsation. The skin preparation was done with ChloraPrep X2 and sterile technique was observed throughout the procedure. A 25-guage, 1.5 inch needle was used for the procedure. A 25-gauge 1.5 inch needle was placed vertically downward, bony contact was obtained, negative aspiration was confirmed and 7 ml solution was injected. The needle was redirected little medially and laterally in a fanning fashion and addition medication was injected after negative aspiration. The block solution containing 0.5% preservative-free ropivacaine 6.5 mL +20 MG of Depo-Medrol. The needle was removed, needle puncture site was cleaned and pressure was applied. Entire procedure repeated on the left side. The needle was removed, needle puncture site was cleaned and pressure was applied. The patient tolerated the procedure very well. COMPLICATIONS: None. DISPOSITION / PLANS: The patient was placed in a supine position and transferred to the recovery area in a stable condition for observation and was discharged from the recovery room after meeting discharge criteria. Home discharge instructions given to the patient by the staff. The patient was reexamined prior to discharge. The patient will schedule for follow-up visit with the pain clinic in 4 weeks duration
[2022-01-06] MEDS ORDERED: IV FLUID CONTINUATION 1,000 ML IV ONE (11:25)
[2022-01-06 11:39] VITALS: BP 125/75; PULSE 78
--- NOTE | 2022-01-06 14:14 | P.PCN ---
Date of Procedure: 01/06/22 Description of Procedure: Preoperative diagnosis: Lumbar post laminectomy, and chronic pain syndrome Status post intrathecal pump for chronic pain management Postoperative diagnosis: Lumbar post laminectomy, and chronic pain syndrome Status post intrathecal pump for chronic pain management PROCEDURES: 1. Intrathecal pump analysis. 2. Intrathecal pump reprogramming. 3. Intrathecal pump refill ANESTHESIA: None. EBL: None. COMPLICATIONS: None. IV FLUIDS: None. PROCEDURE INDICATION: Patient is well known to pain clinic for management of intrathecal pump for chronic pain management. Patient denied any side effects with the medications. Rated his pain is 5 out of 10 in severity. On examination lower extremity muscle strength normal, no clonus. Patient came here for pump refill. PROCEDURE DESCRIPTION: The patient was seen and identified in the preoperative area. Risks, benefits, complications, and alternatives were discussed with the patient. The patient agreed to proceed with the procedure. Intrathecal pump was analyzed and displayed the following information: Type: SynchroMed Type II B Medication: Dilaudid 16 MG per mL infusion at 5.904 mg/day Bupivacaine 12 MG per mL infusion at 4.428 MG per day Baclofen 163 g per mL infusion at 60.15 g per day Pump Volume: 40 ml [place] Volume: 9.1 ml PTM: Disabled At this time, the area of the intrathecal pump was exposed, prepped with ChloraPrep x2 , and draped in the usual sterile fashion. After which, the [employer] template was used to identify the area of the skin overlying the refill port. After which, a 22-gauge Riley needle attached to an extension tubing, which was clamped, attached to a syringe and inserted through the skin into the refill port. At that point, 12 mL of clear fluid was aspirated. The tubing was reclamped. This was discarded. A new medication was then identified from pharmacy, . This was then attached to a filter, which was primed and subsequently injected into the pump in increments with intermittent aspiration to ensure placement into the intrathecal pump. At this point, the pump was reprogrammed. The dose was adjusted by none. Type: SynchroMed Type II B Medication: Dilaudid 16 MG per mL infusion at 5.904 mg/day Bupivacaine 12 MG per mL infusion at 4.428 MG per day Baclofen 163 g per mL infusion at 60.15 g per day Pump Volume: 40 ml [place] Volume: 40 ml Lo [place] Alarm Date: 12 weeks PTM: Disabled The patient tolerated the procedure well and was sent home from the discharge area once meeting discharge criteria. Plan: The patient will follow up for further management and pump refills. Medications given : Naloxone 4 mg intranasal as needed for respiratory depression and dispense #2
== END 2022-01-06 11:52 | disposition home or self-care (01) ==
LOC: ORPAIN 10:05
PROVIDERS: ATTEND Specialist
DX: M54.81 Occipital neuralgia (principal); M96.1 Postlaminectomy syndrome, not elsewhere classified; G89.4 Chronic pain syndrome; F41.9 Anxiety disorder, unspecified; I10 Essential (primary) hypertension; E11.9 Type 2 diabetes mellitus without complications; G45.9 Transient cerebral ischemic attack, unspecified; G47.33 Obstructive sleep apnea (adult) (pediatric); Z88.1 Allergy status to other antibiotic agents; Z45.1 Encounter for adjustment and management of infusion pump; Z98.891 History of uterine scar from previous surgery
CPT/HCPCS: 81025; 64405; 62369; J2250; J1030; J3010; J2795

== ENCOUNTER → 2022-02-11 | Outpatient (CLI) | payer OTHER ==
[2022-02-11 13:29] VITALS: BP 148/97; PULSE 88; RESP 18; TEMP 98.9
--- NOTE | 2022-02-11 14:28 | P.PAINPG ---
Objective - Vital Signs Vital signs: Vital Signs Temp 98.9 F 02/11/22 13:20 Pulse 88 02/11/22 13:20 Resp 18 02/11/22 13:20 BP 148/97 02/11/22 13:20 Pulse Ox 96 02/11/22 13:20 FiO2 Intake & Output 02/10/22 02/11/22 02/11/22 18:59 06:59 18:59 Weight 158.757 kg PQRS Measure Charge Sheet Mode of Arrival: Ambulatory Comment: A 26 yr old female with a history of severe and chronic low back pain secondar y to lumbar degenerative disc diseases and lumbar spondylosis with facet arthropathy without myelopathy presents today for evaluation s/p BL NAHUM injection. Pt states she experienced 70% pain relief x 2 wks s/p procedure. Pain level is currently at 3/10 in intensity, constant, localized in the upper aspect of the cervical spine, throbbing in character w shooting towards the mid back. Pain is provoked as high as 7/10 by bright lights and loud noises. Pain is alleviated with medications, laying supine, repositioning and rest. Interventional pain procedures completed include BL NAHUM #2 Patient is currently on Tyl Patient denies any side effects of the medication(s), denies excessive drowsiness or sleepiness, denies suicidal ideation and reports that the current pain medication is helping to control the pain and improve activities of daily living. Patient denies any motor or sensory deficits. Patient denies any fever or night sweats, denies any change in the bowel movements or urination. Physical Examination: -Constitutional: Cooperative. Not in acute distress . - Neurologic: Cranial nerve II to XII intact. No focal neurological deficits. - Psychatric: Alert & oriented x 3. Matching mood & appropriate affect. Judgment and insight intact. - Musculoskeletal: Cervical spine: +BL NAHUM TTP Muscle bulk/ tone/ strength in the bilateral upper extremities normal Vertebral body tenderness to palpation over Spurling test positive Distraction test positive Facet loading test positive Thoracic spine Muscle bulk / tone/ strength in the bilateral paraspinal muscles normal Vertebral body tender to palpation over Facet loading test positive Lumbar spine: Motor bulk/ tone/ strength lower extremities , thigh and legs : 5/5 Deep tendon reflexes : Normal Knee Jerk. Normal Ankle Jerk . Vertebral body tenderness to palpation over Lumbar Facet Loading Test positive Straight Leg Raise: positive at 30 degrees right side/ left side Gaenslen's Test positive Sacral spine : Severe tenderness over the Sacroiliac joint: right side / left side Range of motion: Flexion of the lumbar spine <60 degrees Range of motion: Extension of the lumbar spine <20 degrees Gaenslen's Test positive Stanley's Test positive Antonieta test: positive right side / left side Thigh Thrust Test Sacral Thrust Test Assessment and plan: Chronic CARABALLO pain secondary to Occipital Neuralgia Recommendation of BL NAHUM injection #3. May need a series of injections, up to every 3 mo, for optimal pain relief. Risks, benefits of procedure discussed and pt verbalized understanding. Admits to anticoagulant use or medical history of diabetes. Protocol for discontinuation/ continuation of medications sean procedure discussed. All patient questions answered I have spent less than 30 minutes on patient care today. Dr Bryant was available by phone for the evaluation of this patient. The time was used to review the medical records including relevant urine studies and Prescription history (MAPs), review of the available imaging, evaluation and examination of the patient, coordination of care with the medical staff and if applicable referring physicians, as well as creation of the medical record - Pain Location Bilateral Upper Neck Non-Pharmacological Interventions: Darkened Room Pharmacological Interventions: PRN Medication PQRS Narrative: Smoking Status Never smoker Blood Pressure 148/97 Pain Intensity [Bilateral 3 Upper Neck] Scale Used Numeric (1 - 10) Home Medications: Ambulatory Orders Aspirin 81 mg PO DAILY #30 chewable 07/27/20 Baclofen 10 mg PO DAILY PRN 09/29/21 Insulin Aspart [NovoLOG Flexpen] 10 units SQ AC-TID 09/29/21 Insulin Glargine,Hum.rec.anlog [Lantus Solostar] 50 unit SQ QAM 09/29/21 Pnv No.95/Ferrous Fum/Folic AC [ Multivitamin Tablet] 1 each PO QAM 09/29/21 glipiZIDE 10 mg PO BID-W/MEALS 09/29/21 hydrOXYzine pamoate [hydrOXYzine PAMOATE] 25 mg PO HS PRN 09/29/21 metFORMIN HCL 1,000 mg PO W/SUPPER 09/29/21 metFORMIN HCL 500 mg PO QAM 09/29/21 rOPINIRole HCL [Requip] 0.5 mg PO BID PRN 09/29/21 Acetaminophen [Tylenol] 325 - 650 mg PO Q6H PRN 01/05/22 Labetalol HCl 300 mg PO 1200 01/05/22 Labetalol HCl 600 mg PO BID 01/05/22 Pantoprazole Sodium [Protonix] 20 mg PO QAM 01/05/22 Controlled Substance Measures - Controlled Substance Measures Is patient prescribed a controlled substance at discharge?: No
== END ==
LOC: PNWHC3 13:03
PROVIDERS: ATTEND Specialist
DX: M54.81 Occipital neuralgia (principal); G44.86 Cervicogenic headache; Z88.1 Allergy status to other antibiotic agents
CPT/HCPCS: 99211

== ENCOUNTER 2022-03-19 11:29 | Day surgery (SDC) | payer OTHER ==
[2022-03-17 11:33] VITALS: BMI 60.2
[2022-03-19] MEDS ORDERED: LIDOCAINE 1% (10MG/ML) FOR IV START INTRADERMA PRN (11:56)
[2022-03-19] MEDS ORDERED: LACTATED RINGERS 1,000 ML IV SCH (11:56)
[2022-03-19] MEDS ORDERED: IV FLUID CONTINUATION 1,000 ML IV ONE (12:15)
[2022-03-19] MEDS ORDERED: LACTATED RINGERS 1,000 ML IV ONE (12:15)
[2022-03-19] MEDS ORDERED: methylPREDNISolone ACETATE 40 MG/ML 1 ML VIAL ONE (12:23)
[2022-03-19] MEDS ORDERED: fentaNYL (PF) 50 MCG/ML 2 ML AMP ONE (12:23)
[2022-03-19] MEDS ORDERED: MIDAZOLAM 2 MG/2 ML VIAL ONE (12:23)
[2022-03-19] MEDS ORDERED: ROPIVACAINE 5 MG/ML 20 ML AMPULE ONE (12:23)
[2022-03-19 12:24] VITALS: TEMP 97.5
[2022-03-19 12:26] LABS: Glucose,Whole Blood 131 mg/dL (70-110)
--- NOTE | 2022-03-19 12:32 | P.PCN ---
Date of Procedure: 03/19/22 Procedure(s) Performed: Preoperative diagnoses= 1- Greater occipital neuralgia Postoperative diagnoses= same as preoperative diagnosis. Procedure= Bilateral Greater occipital nerve block Anesthesia= moderate sedation with Versed 2 mg and fentanyl 100 micrograms . Sedation start= 12:25, end 12:30 Estimated blood loss=minimal. Procedure indication= the patient had a history of severe chronic neck pain ,and headache, diagnosed with occipital neuralgia exam was positive for severe tenderness over the occipital nerve bilaterally, she will be a good candidate occipital nerve block, patient failed conservative management Procedure description= the patient was seen and identified in the preoperative holding area, risks and benefits and alternative of the procedure and possible complications discussed with the patient, and he agreed with the preceding, patient signed the consent, an IV was started, and vital signs were monitored and were stable throughout the procedure, patient was placed in the sitting position or table and the neck area was prepped and draped with a sterile fashion, vital signs were closely monitored during the procedure, 25-gauge needle advanced 1 inch lateral to the occipital protuberance on the right side, at the location of the right occipital nerve , then after negative aspiration for heme and CSF and there was no paresthesia during the injection, 6 ml of Robivacaine 0.5% and 20 mg of Depo-Medrol injected after negative aspiration, the needle removed, and the entire same procedure was repeated for the left Greater occipital nerve. Patient tolerated the procedure well without any complication, The patient returned to supine position after the back was cleaned and a Band- Aid applied, the patient transported to recovery room in stable condition and he was monitored for 30 minutes before he was discharged home and then patient was reexamined before going home and patient was discharged in stable condition and patient will follow up with the pain clinic in a few weeks.
[2022-03-19 13:00] VITALS: BP 138/89; PULSE 80; RESP 16
== END 2022-03-19 13:05 | disposition home or self-care (01) ==
LOC: ORPAIN 11:29
PROVIDERS: ATTEND Specialist
DX: M54.81 Occipital neuralgia (principal); Z88.8 Allergy status to other drugs, medicaments and biological substances
CPT/HCPCS: 81025; 64405; J2250; J1030; J3010; J2795

== ENCOUNTER 2024-01-31 23:05 | Inpatient (IN) | payer OTHER ==
--- NOTE | 2024-01-31 23:14 | ED ---
Recheck HPI - General Stated Complaint: DKA Time Seen by Provider: 01/31/24 23:07 Source: RN notes reviewed, old records reviewed Mode of arrival: EMS Limitations: no limitations - History of Present Illness Initial Comments: This is a 28-year-old female coming in for concern for DKA MD Complaint: wound re-check, abnormal lab -: days(s) Returns Today for: Called Because of Abnormal Lab/Test, persistent/worsening pain related to initial visit Symptoms Since Prior Visit: worsening pain Context: called for abnormal lab result Associated Symptoms: none Treatments Prior to Arrival: Given Pain Meds on - Related Data Home Medications Medication Instructions Recorded Confirmed Losartan Potassium [Cozaar] 100 mg PO DAILY 02/01/24 02/01/24 Omeprazole Magnesium [PriLOSEC OTC] 20 mg PO DAILY 02/01/24 02/01/24 Previous Rx's Medication Instructions Recorded Insuln Asp Prt/Insulin Aspart 35 unit SQ AC-SUPPER #10 ml 02/04/24 [NovoLOG MIX 70-30 VIAL] Insuln Asp Prt/Insulin Aspart 45 unit SQ AC-BRKFST #10 ml 02/04/24 [NovoLOG MIX 70-30 VIAL] metFORMIN HCL 1,000 mg PO BID-W/MEALS #60 tab 02/04/24 Allergies Allergy/AdvReac Type Severity Reaction Status Date / Time cephalexin [From Keflex] Allergy Rash/Hives Verified 02/01/24 07:26 Review of Systems ROS Statement: Those systems with pertinent positive or pertinent negative responses have been documented in the HPI. ROS Other: All systems not noted in ROS Statement are negative. Past Medical History Past Medical History: CVA/TIA, Diabetes Mellitus, Hyperlipidemia, Hypertension, Sleep Apnea/CPAP/BIPAP Additional Past Medical History / Comment(s): Pre-eclampsia with her , "minor stroke" headaches started after her stroke. History of Any Multi-Drug Resistant Organisms: None Reported Past Surgical History: Adenoidectomy, Section Additional Past Surgical History / Comment(s): Pain procedures Past Anesthesia/Blood Transfusion Reactions: No Reported Reaction Smoking Status: Never smoker - Past Family History Mother Family Medical History: No Reported History Additional Family Medical History / Comment(s): . Father Family Medical History: Hypertension Sister(s) Family Medical History: Diabetes Mellitus General Exam General appearance: alert, in no apparent distress, anxious, in distress Head exam: Present: atraumatic, normocephalic, normal inspection Eye exam: Present: normal appearance, PERRL, EOMI. Absent: scleral icterus, conjunctival injection, periorbital swelling ENT exam: Present: normal exam, mucous membranes moist Neck exam: Present: normal inspection. Absent: tenderness, meningismus, lymphadenopathy Respiratory exam: Present: normal lung sounds bilaterally. Absent: respiratory distress, wheezes, rales, rhonchi, stridor Cardiovascular Exam: Present: normal rhythm, tachycardia, normal heart sounds. Absent: systolic murmur, diastolic murmur, rubs, gallop, clicks GI/Abdominal exam: Present: soft, normal bowel sounds. Absent: distended, tenderness, guarding, rebound, rigid Extremities exam: Present: normal inspection, full ROM, normal capillary refill. Absent: tenderness, pedal edema, joint swelling, calf tenderness Back exam: Present: normal inspection Neurological exam: Present: alert, oriented X3, CN II-XII intact Psychiatric exam: Present: normal affect, normal mood Skin exam: Present: warm, dry, intact, normal color. Absent: rash Course Vital Signs 01/31/24 02/01/24 02/01/24 23:07 01:15 02:10 Temperature 98.2 F Pulse Rate 122 H 111 H 114 H Pulse Rate [ Bilateral Dorsalis Pedis] Pulse Rate [ Bilateral Radial] Pulse Rate [ Right Pulse Oximetery] Respiratory 22 19 18 Rate Blood Pressure 153/93 153/97 169/97 Blood Pressure [Right Arm] O2 Sat by Pulse 99 98 97 Oximetry 02/01/24 02/01/24 02/01/24 04:46 07:00 07:54 Temperature Pulse Rate 105 H 112 H 107 H Pulse Rate [ Bilateral Dorsalis Pedis] Pulse Rate [ Bilateral Radial] Pulse Rate [ Right Pulse Oximetery] Respiratory 18 20 18 Rate Blood Pressure 142/84 119/71 141/81 Blood Pressure [Right Arm] O2 Sat by Pulse 99 95 98 Oximetry 02/01/24 02/01/24 02/01/24 08:00 12:00 16:00 Temperature 97.7 F 98.5 F Pulse Rate Pulse Rate [ 96 92 96 Bilateral Dorsalis Pedis] Pulse Rate [ 96 92 96 Bilateral Radial] Pulse Rate [ Right Pulse Oximetery] Respiratory 17 18 17 Rate Blood Pressure Blood Pressure 130/86 134/72 144/78 [Right Arm] O2 Sat by Pulse 96 96 95 Oximetry 02/01/24 17:45 Temperature 98.7 F Pulse Rate Pulse Rate [ Bilateral Dorsalis Pedis] Pulse Rate [ Bilateral Radial] Pulse Rate [ 94 Right Pulse Oximetery] Respiratory 17 Rate Blood Pressure Blood Pressure 142/78 [Right Arm] O2 Sat by Pulse 98 Oximetry - Reevaluation(s) Reevaluation #1: 01/31/24 23:31 Medical records reviewed Reevaluation #2: 02/01/24 00:11 Patient symptoms unchanged here in the ER Reevaluation #3: 02/01/24 00:11 Patient informed of results and questions answered Reevaluation #4: Was pt. sent in by a medical professional or institution ([facility], [facility], urgent care, hospital, or [facility]...) When possible be specific @ -no Did you speak to anyone other than the patient for history (EMS, parent, family, police, friend...)? What history was obtained from this source @ -no Did you review nursing and triage notes (agree or disagree)? Why? @ -agree Are old charts reviewed (outside hosp., previous admission, EMS record, old EKG, old radiological studies, urgent care reports/EKG's, [facility] records)? Report findings @ -yes Differential Diagnosis (chest pain, altered mental status, abdominal pain women, abdominal pain men, vaginal bleeding, weakness, fever, dyspnea, syncope, headache, dizziness, GI bleed, back pain, seizure, CVA, palpatations, mental health, musculoskeletal)? @ -prior EKG interpreted by me (3pts min.). @ -yes X-rays interpreted by me (1pt min.). @ -no CT interpreted by me (1pt min.). @ -no U/S interpreted by me (1pt. min.). @ -no What testing was considered but not performed or refused? (CT, X-rays, U/S, labs)? Why? @ -none What meds were considered but not given or refused? Why? @ -none Did you discuss the management of the patient with other professionals (professionals i.e. [facility], [facility], lab, RT, psych nurse, vp digital marketing social media and crm, cloth finishing range back tender, teacher, flight communications officer, geriatric case manager)? Give summary @ -no Was smoking cessation discussed for >3mins.? @ -no Was critical care preformed (if so, how long)? @ -yes31 Were there social determinants of health that impacted care today? How? (Homelessness, low income, unemployed, alcoholism, drug addiction, transportation, low edu. Level, literacy, decrease access to med. care, group home, rehab)? @ -none Was there de-escalation of care discussed even if they declined (Discuss DNR or withdrawal of care, Hospice)? DNR status @ -no What co-morbidities impacted this encounter? (DM, HTN, Smoking, COPD, CAD, Cancer, CVA, ARF, Chemo, Hep., AIDS, mental health diagnosis, sleep apnea, morbid obesity)? @ -none Was patient admitted / discharged? Hospital course, mention meds given and route, prescriptions, significant lab abnormalities, going to OR and other pertinent info. @ - 28 female to the ER for evaluation of diabetic ketoacidosis pH 7.2, patient will be admitted for IV resuscitation insulin drip and monitoring Admitted Undiagnosed new problem with uncertain prognosis? @ -no Drug Therapy requiring intensive monitoring for toxicity (Heparin, Nitro, Insulin, Cardizem)? @ -no Were any procedures done? @ -no Diagnosis/symptom? @ -DKA Acute, or Chronic, or Acute on Chronic? @ -Acute Uncomplicated (without systemic symptoms) or Complicated (systemic symptoms)? @ -Complicated Side effects of treatment? @ -no Exacerbation, Progression, or Severe Exacerbation? @ -exacerbation Poses a threat to life or bodily function? How? (Chest pain, USA, NE, pneumonia, PE, COPD, DKA, ARF, appy, cholecystitis, CVA, Diverticulitis, Homicidal, Suicidal, threat to staff... and all critical care pts) @ -no Reevaluation #5: Differential Weakness: Hypoglycemia, shock, sepsis, hyponatremia, anemia, infection, NE, ETOH, adverse medicine reaction, overdose, stroke, this is not meant to be an all-inclusive list. - Consultations Consultation #1: Spoke with [facility] who agrees to admit the patient Medical Decision Making - Medical Decision Making 28 female to the ER for evaluation of diabetic ketoacidosis pH 7.2, patient will be admitted for IV resuscitation insulin drip and monitoring - Lab Data Result diagrams: 02/03/24 10:38 02/03/24 10:36 Lab Results 01/31/24 01/31/24 Range/Units 23:46 23:55 WBC 12.5 H (3.8-10.6) k/uL RBC 4.31 (3.80-5.40) m/uL Hgb 11.8 (11.4-16.0) gm/dL Hct 37.5 (34.0-46.0) % MCV 87.0 (80.0-100.0) fL MCH 27.4 (25.0-35.0) pg MCHC 31.5 (31.0-37.0) g/dL RDW 16.2 H (11.5-15.5) % Plt Count 348 (150-450) k/uL MPV 8.8 Neutrophils % (Manual) 57 % Band Neuts % (Manual) 28 % Lymphocytes % (Manual) 12 % Monocytes % (Manual) 3 % Neutrophils # (Manual) 10.60 H (1.3-7.7) k/uL Lymphocytes # (Manual) 1.50 (1.0-4.8) k/uL Monocytes # (Manual) 0.38 (0-1.0) k/uL Nucleated RBCs 0 (0-0) /100 WBC Manual Slide Review Performed Hypochromasia Marked Poikilocytosis Slight Anisocytosis Slight POC Glucose (mg/dL) 321 H (70-110) mg/dL POC Glu [employer] ID Momo Jay - EKG Data -: EKG Interpreted by Me (EKG is sinus tachycardia 100 TN 146 QRS 82 QTc 407) Critical Care Time Critical Care Time: Yes Total Critical Care Time: 31 Disposition Clinical Impression: Dehydration, DKA (diabetic ketoacidosis) Disposition: ADMITTED IP TO THIS HOSP Condition: Serious Is patient prescribed a controlled substance at d/c from ED?: No
[2024-01-31] MEDS: SODIUM CHLORIDE 0.9% 1,000 ML IV STA (23:50)
[2024-01-31] MEDS: ONDANSETRON 4 MG/2 ML VIAL IVP STA (23:51)
[2024-01-31 23:57] LABS: Glucose,Whole Blood 321 mg/dL (70-110)
[2024-02-01] MEDS ORDERED: NALOXONE 0.4 MG/ML 1 ML VIAL IV PRN (00:09)
[2024-02-01 00:27] LABS: Anisocytosis Slight; HCT 37.5 % (34.0-46.0); HGB 11.8 gm/dL (11.4-16.0); Hypochromasia Marked; MCH 27.4 pg (25.0-35.0); MCHC 31.5 g/dL (31.0-37.0); Mean Platelet Volume 8.8; Platelet Count 348 k/uL (150-450); Poikilocytosis Slight; RBC 4.31 m/uL (3.80-5.40); RDW 16.2 % (11.5-15.5); WBC 12.5 k/uL (3.8-10.6)
[2024-02-01 01:01] LABS: Band Neutrophils % 28 %; Monocytes # (M) 0.38 k/uL (0-1.0); Neutrophils % (M) 57 %; Nucleated Red Blood Cells 0 /100 WBC (0-0); Total Cells Counted 200
[2024-02-01] MEDS: INSULIN REGULAR 100 UNIT in SODIUM CHLORIDE 0.9% 100 ML IV SCH (01:18)
[2024-02-01] MEDS: SODIUM CHLORIDE 0.9% 1,000 ML IV SCH (01:19)
[2024-02-01 01:29] LABS: ALT 15 U/L (4-34); African American GFR (CKD) >90 (>60 ml/min/1.73 sqM); Albumin 3.4 g/dL (3.5-5.0); Blood Urea Nitrogen 6 mg/dL (7-17); Calcium 8.6 mg/dL (8.4-10.2); Chloride 114 mmol/L (98-107); Glucose 327 mg/dL (74-99); Non-African American GFR(CKD) >90 (>60 ml/min/1.73 sqM); Sodium 135 mmol/L (137-145); Total Bilirubin 0.9 mg/dL (0.2-1.3); Total Protein 6.7 g/dL (6.3-8.2)
[2024-02-01 01:32] LABS: Carbon Dioxide <5 mmol/L (22-30)
[2024-02-01 01:33] LABS: AST 28 U/L (14-36); Magnesium 1.8 mg/dL (1.6-2.3); Phosphorus 1.7 mg/dL (2.5-4.5); Potassium 4.5 mmol/L (3.5-5.1)
[2024-02-01 01:34] LABS: Alkaline Phosphatase 101 U/L (38-126)
[2024-02-01 01:37] LABS: NT-Pro-B-Type Natriuretic Pept 71 pg/mL
[2024-02-01 02:12] LABS: Glucose,Whole Blood 319 mg/dL (70-110)
[2024-02-01] MEDS: PANTOPRAZOLE 40 MG/10 ML VIAL IVP STA (02:17)
[2024-02-01 03:06] LABS: INR 0.9 (<1.2)
[2024-02-01 03:07] LABS: Prothrombin Time 10.5 sec (10.0-12.5)
[2024-02-01 03:21] LABS: Glucose,Whole Blood 269 mg/dL (70-110)
[2024-02-01 04:24] LABS: Glucose,Whole Blood 237 mg/dL (70-110)
[2024-02-01] MEDS: DEXTROSE 5%-0.45% NACL 1,000 ML with POTASSIUM CHLORIDE 20 MEQ IV SCH (04:47)
[2024-02-01 05:01] LABS: African American GFR (CKD) >90 (>60 ml/min/1.73 sqM); Blood Urea Nitrogen 5 mg/dL (7-17); Chloride 111 mmol/L (98-107); Glucose 244 mg/dL (74-99); Non-African American GFR(CKD) >90 (>60 ml/min/1.73 sqM); Phosphorus 1.4 mg/dL (2.5-4.5); Potassium 3.7 mmol/L (3.5-5.1); Sodium 135 mmol/L (137-145)
[2024-02-01 05:02] LABS: Carbon Dioxide <5 mmol/L (22-30)
[2024-02-01 05:47] LABS: Glucose,Whole Blood 197 mg/dL (70-110)
[2024-02-01 06:49] LABS: HCG,Qualitative Serum Not Detected
[2024-02-01 07:03] LABS: Glucose,Whole Blood 169 mg/dL (70-110)
[2024-02-01 07:29] LABS: Glucose,Whole Blood 162 mg/dL (70-110)
[2024-02-01] MEDS: ONDANSETRON 4 MG/2 ML VIAL IVP PRN (07:45)
--- NOTE | 2024-02-01 08:27 | P.HPIM ---
History of Present Illness This is a pleasant 28 years old female with past medical history of diabetes mellitus she was on insulin and metformin at home suspicious for type 2 diabetes mellitus but her presentation goes more with type I. Patient states that recently she is lost her insurance last June and she has difficulty paying for her medication. At home she takes Lantus 40 units at home and 10 units with meal plus sliding scale. She was now taking her insulin sporadically and she is not very adherent to it. She presents because of nausea and vomiting, she could not hold anything down since yesterday No blood in the vomit She has some abdominal pain but improved now. No bowel movement for the last 3 to 5 days She denies urinary problem, no chest pain or dyspnea or dizziness or headache, no weakness or numbness Patient states that she was diagnosed with stroke in July 2020, this made her speech slow a little bit since then. She is supposed to take aspirin at home but she misses few doses. Probably because of similar insurance problems. She is afebrile, blood pressure stable, she is tachycardic with heart rate about 122 CBC is reviewed showing mild leukocytosis about 12,000, could be also hemoconcentration Carbon dioxide is low less than 5, anion gap was elevated and unable to calculate per System Liver enzymes, INR troponin were unremarkable Serum hCG is negative Acetone is positive EKG showing a sinus tachycardia at [address]-T changes. With some low voltage and some lites She is currently getting insulin drip. At [facility] glucose was elevated 472. Patient was transferred from [facility] to this facility Review of Systems Review of systems CONSTITUTIONAL: No fever, no malaise, no fatigue. HEENT: No recent visual problems or hearing problems. Denied any sore throat. CARDIOVASCULAR: No orthopnea, PND, no palpitations, no syncope. PULMONARY: No shortness of breath, no cough, no hemoptysis. GASTROINTESTINAL: As above. NEUROLOGICAL: No headaches, no weakness, no numbness. HEMATOLOGICAL: Denies any bleeding or petechiae. GENITOURINARY: Denies any burning micturition, frequency, or urgency. MUSCULOSKELETAL/RHEUMATOLOGICAL: Denies any joint pain, swelling, or any muscle pain. ENDOCRINE: Denies any polyuria or polydipsia. Past Medical History Past Medical History: CVA/TIA, Diabetes Mellitus, Hyperlipidemia, Hypertension, Sleep Apnea/CPAP/BIPAP Additional Past Medical History / Comment(s): Pre-eclampsia with her , "minor stroke" headaches started after her stroke. History of Any Multi-Drug Resistant Organisms: None Reported Past Surgical History: Adenoidectomy, Section Additional Past Surgical History / Comment(s): Pain procedures Past Anesthesia/Blood Transfusion Reactions: No Reported Reaction Smoking Status: Never smoker - Past Family History Mother Family Medical History: No Reported History Additional Family Medical History / Comment(s): . Father Family Medical History: Hypertension Medications and Allergies Home Medications Medication Instructions Recorded Confirmed Type Insulin Glargine,Hum.rec.anlog 40 unit SQ HS 09/29/21 02/01/24 History [Lantus Solostar] Insulin NPH Human Isophane 10 units SQ AC-TID 02/01/24 02/01/24 History [NovoLIN N Flexpen] Insulin NPH Human Isophane See Protocol SQ AC-TID 02/01/24 02/01/24 History [NovoLIN N Flexpen] Losartan Potassium [Cozaar] 100 mg PO DAILY 02/01/24 02/01/24 History Omeprazole Magnesium [PriLOSEC OTC] 20 mg PO DAILY 02/01/24 02/01/24 History metFORMIN HCL 1,000 mg PO BID-W/MEALS 02/01/24 02/01/24 History Allergies Allergy/AdvReac Type Severity Reaction Status Date / Time cephalexin [From Keflex] Allergy Rash/Hives Verified 02/01/24 07:26 Physical Exam Vitals: Vital Signs Temp Pulse Resp BP Pulse Ox 02/01/24 07:54 107 H 18 141/81 98 02/01/24 07:00 112 H 20 119/71 95 02/01/24 04:46 105 H 18 142/84 99 02/01/24 02:10 114 H 18 169/97 97 02/01/24 01:15 111 H 19 153/97 98 01/31/24 23:07 98.2 F 122 H 22 153/93 99 Intake and Output 01/31/24 02/01/24 02/01/24 22:59 06:59 14:59 Intake Total 51.075 49.925 Balance 51.075 49.925 Intake: Intake, IV Titration 51.075 49.925 Amount Insulin Regular 100 unit 51.075 49.925 In Sodium Chloride 0.9% 100 ml @ 0.1 UNITS/KG/HR 15.118 mls/hr IV .Q6H41M [facility] Rx#:[id number] Other: Weight 149.685 kg -GENERAL: The patient is alert and oriented x3, not in any acute distress. Wel morbidly obese HEENT: Pupils are round and equally reacting to light. EOMI. No scleral icterus. No conjunctival pallor. Normocephalic, atraumatic. No pharyngeal erythema. No thyromegaly. CARDIOVASCULAR: S1 and S2 present. No murmurs, rubs, or gallops. PULMONARY: Chest is clear to auscultation, no wheezing , no crackles. -ABDOMEN: Soft, nonte mild right upper quadrant tenderness with no guarding or rebound tenderness nondistended, normoactive bowel sounds. No palpable organomegaly. MUSCULOSKELETAL: No joint swelling or deformity. EXTREMITIES: No cyanosis, clubbing, or pedal edema. NEUROLOGICAL: Gross neurological examination did not reveal any focal deficits. SKIN: No rashes. no petechiae. Results CBC & Chem 7: 01/31/24 23:46 02/01/24 03:49 Labs: Abnormal Lab Results - Last 24 Hours (Table) 01/31/24 01/31/24 02/01/24 Range/Units 23:46 23:55 00:56 WBC 12.5 H (3.8-10.6) k/uL RDW 16.2 H (11.5-15.5) % Neutrophils # (Manual) 10.60 H (1.3-7.7) k/uL Sodium 135 L (137-145) mmol/L Chloride 114 H (98-107) mmol/L Carbon Dioxide <5 L* (22-30) mmol/L BUN 6 L (7-17) mg/dL Creatinine 0.44 L (0.52-1.04) mg/dL Glucose 327 H (74-99) mg/dL POC Glucose (mg/dL) 321 H (70-110) mg/dL Phosphorus 1.7 L (2.5-4.5) mg/dL Albumin 3.4 L (3.5-5.0) g/dL 02/01/24 02/01/24 02/01/24 Range/Units 02:10 03:20 03:49 WBC (3.8-10.6) k/uL RDW (11.5-15.5) % Neutrophils # (Manual) (1.3-7.7) k/uL Sodium 135 L (137-145) mmol/L Chloride 111 H (98-107) mmol/L Carbon Dioxide <5 L* (22-30) mmol/L BUN 5 L (7-17) mg/dL Creatinine 0.41 L (0.52-1.04) mg/dL Glucose 244 H (74-99) mg/dL POC Glucose (mg/dL) 319 H 269 H (70-110) mg/dL Phosphorus 1.4 L (2.5-4.5) mg/dL Albumin (3.5-5.0) g/dL 02/01/24 02/01/24 02/01/24 Range/Units 04:23 05:45 06:51 WBC (3.8-10.6) k/uL RDW (11.5-15.5) % Neutrophils # (Manual) (1.3-7.7) k/uL Sodium (137-145) mmol/L Chloride (98-107) mmol/L Carbon Dioxide (22-30) mmol/L BUN (7-17) mg/dL Creatinine (0.52-1.04) mg/dL Glucose (74-99) mg/dL POC Glucose (mg/dL) 237 H 197 H (70-110) mg/dL Phosphorus 1.3 L (2.5-4.5) mg/dL Albumin (3.5-5.0) g/dL 02/01/24 02/01/24 Range/Units 06:52 07:27 WBC (3.8-10.6) k/uL RDW (11.5-15.5) % Neutrophils # (Manual) (1.3-7.7) k/uL Sodium (137-145) mmol/L Chloride (98-107) mmol/L Carbon Dioxide (22-30) mmol/L BUN (7-17) mg/dL Creatinine (0.52-1.04) mg/dL Glucose (74-99) mg/dL POC Glucose (mg/dL) 169 H 162 H (70-110) mg/dL Phosphorus (2.5-4.5) mg/dL Albumin (3.5-5.0) g/dL Assessment and Plan Assessment: Diabetic ketoacidosis, present on admission Diabetes mellitus with hyperglycemia Nonadherence or compliance to medication and including insulin and aspirin because of insurance problem Hypertension Hyperlipidemia Obstructive sleep apnea Morbid obesity History of stroke/TIA stating she has some speech difficulty as per patient Plan: Continue with insulin drip Monitor electrolytes and anion gap Once close we can resume diet and switch to insulin Continue with hydration Monitor abdominal pain, if no improvement then may consider further workup. 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 Continue same treatment. Continue with symptomatic treatment. Resume home medication. Monitor labs and vitals. DVT and GI prophylaxis. Further recommendations as per clinical course of the patient DVT prophylaxis: Subcutaneous Lovenox GI Prophylaxis: Protonix Prognosis is guarded
[2024-02-01 08:53] LABS: Glucose,Whole Blood 144 mg/dL (70-110)
[2024-02-01] MEDS ORDERED: HEPARIN SODIUM,PORCINE 5,000 UNIT/ML 1 ML VIAL SQ SCH (09:00)
[2024-02-01 09:40] LABS: Appearance,Urine Clear (Clear); Bilirubin,Urine 1+ (Negative); Blood,Urine Small (Negative); Budding Yeast,Urine Occasional /hpf; Color,Urine Yellow; Glucose,Urine (UA) 4+ (Negative); Leukocyte Esterase,Urine Negative (Negative); Mucus,Urine Rare /hpf; Nitrite,Urine Negative (Negative); Protein,Urine 3+ (Negative); RBC,Urine 1 /hpf (0-5); Squamous Epithelial Cell,Urine 3 /hpf (0-4); WBC,Urine 3 /hpf (0-5)
[2024-02-01 09:43] LABS: Ketones,Urine 4+ (Negative)
[2024-02-01] MEDS: PANTOPRAZOLE 40 MG/10 ML VIAL IVP SCH (10:15)
[2024-02-01] MEDS: ENOXAPARIN 40 MG/0.4 ML SYRINGE SQ SCH (10:16)
[2024-02-01 11:03] LABS: Glucose,Whole Blood 114 mg/dL (70-110)
[2024-02-01 13:07] LABS: Glucose,Whole Blood 111 mg/dL (70-110)
[2024-02-01 14:02] LABS: Glucose,Whole Blood 164 mg/dL (70-110)
[2024-02-01 15:33] LABS: Glucose,Whole Blood 202 mg/dL (70-110)
[2024-02-01 19:16] LABS: Glucose,Whole Blood 270 mg/dL (70-110)
[2024-02-01 20:06] LABS: Glucose,Whole Blood 262 mg/dL (70-110)
[2024-02-01 21:07] LABS: Glucose,Whole Blood 265 mg/dL (70-110)
[2024-02-01 22:05] LABS: Glucose,Whole Blood 270 mg/dL (70-110)
[2024-02-01 23:04] LABS: Glucose,Whole Blood 234 mg/dL (70-110)
[2024-02-02 00:11] LABS: Glucose,Whole Blood 204 mg/dL (70-110)
[2024-02-02 01:04] LABS: Glucose,Whole Blood 197 mg/dL (70-110)
[2024-02-02 01:56] LABS: Glucose,Whole Blood 240 mg/dL (70-110)
[2024-02-02 02:11] LABS: Glucose,Whole Blood 209 mg/dL (70-110)
[2024-02-02 03:00] LABS: Glucose,Whole Blood 195 mg/dL (70-110)
[2024-02-02 03:59] LABS: Glucose,Whole Blood 225 mg/dL (70-110)
[2024-02-02 04:59] LABS: Glucose,Whole Blood 203 mg/dL (70-110)
[2024-02-02 06:16] LABS: Glucose,Whole Blood 216 mg/dL (70-110)
[2024-02-02 07:02] LABS: ALT 18 U/L (4-34); AST 38 U/L (14-36); African American GFR (CKD) >90 (>60 ml/min/1.73 sqM); Alkaline Phosphatase 92 U/L (38-126); Anion Gap 10 mmol/L; Blood Urea Nitrogen 5 mg/dL (7-17); Calcium 8.4 mg/dL (8.4-10.2); Carbon Dioxide 14 mmol/L (22-30); Chloride 112 mmol/L (98-107); Glucose 185 mg/dL (74-99); Magnesium 1.7 mg/dL (1.6-2.3); Non-African American GFR(CKD) >90 (>60 ml/min/1.73 sqM); Phosphorus 1.5 mg/dL (2.5-4.5); Potassium 3.3 mmol/L (3.5-5.1); Sodium 136 mmol/L (137-145); Total Bilirubin 0.5 mg/dL (0.2-1.3); Total Protein 6.2 g/dL (6.3-8.2)
[2024-02-02 07:06] LABS: Glucose,Whole Blood 164 mg/dL (70-110)
[2024-02-02 07:08] LABS: Basophils % (A) 0 %; Eosinophils # (A) 0.2 k/uL (0-0.7); Eosinophils % (A) 3 %; HGB 10.3 gm/dL (11.4-16.0); Hypochromasia Marked; Lymphocytes # (A) 0.7 k/uL (1.0-4.8); Lymphocytes % (A) 13 %; MCH 27.7 pg (25.0-35.0); MCHC 31.3 g/dL (31.0-37.0); MCV 88.4 fL (80.0-100.0); Mean Platelet Volume 7.5; Monocytes # (A) 0.2 k/uL (0-1.0); Monocytes % (A) 3 %; Neutrophils # (A) 4.6 k/uL (1.3-7.7); Neutrophils % (A) 80 %; Platelet Count 224 k/uL (150-450); Poikilocytosis Slight; RBC 3.73 m/uL (3.80-5.40); RDW 15.9 % (11.5-15.5); WBC 5.7 k/uL (3.8-10.6)
[2024-02-02 08:00] LABS: Glucose,Whole Blood 195 mg/dL (70-110)
[2024-02-02] MEDS ORDERED: Potassium Replacement Protocol 1 EACH MISC MISCELLANE PRN (08:14)
[2024-02-02 09:00] LABS: Glucose,Whole Blood 167 mg/dL (70-110)
[2024-02-02] MEDS: POTASSIUM CHLORIDE ER 20 MEQ TAB.ER PO SCH (09:31)
[2024-02-02] MEDS: LOSARTAN 50 MG TAB PO SCH (09:31)
[2024-02-02 10:28] LABS: Glucose,Whole Blood 156 mg/dL (70-110)
[2024-02-02 11:07] LABS: Glucose,Whole Blood 158 mg/dL (70-110)
[2024-02-02 12:01] LABS: Glucose,Whole Blood 164 mg/dL (70-110)
[2024-02-02 12:37] LABS: ALT 19 U/L (4-34); AST 40 U/L (14-36); African American GFR (CKD) >90 (>60 ml/min/1.73 sqM); Albumin 2.9 g/dL (3.5-5.0); Alkaline Phosphatase 90 U/L (38-126); Anion Gap 7 mmol/L; Blood Urea Nitrogen 4 mg/dL (7-17); Calcium 8.4 mg/dL (8.4-10.2); Carbon Dioxide 19 mmol/L (22-30); Chloride 109 mmol/L (98-107); Glucose 168 mg/dL (74-99); Non-African American GFR(CKD) >90 (>60 ml/min/1.73 sqM); Phosphorus 1.6 mg/dL (2.5-4.5); Potassium 3.4 mmol/L (3.5-5.1); Sodium 135 mmol/L (137-145); Total Bilirubin 0.5 mg/dL (0.2-1.3); Total Protein 5.7 g/dL (6.3-8.2)
[2024-02-02] MEDS: DEXTROSE 5%-0.45% NACL 1,000 ML IV SCH (14:39)
[2024-02-02 16:47] LABS: Glucose,Whole Blood 277 mg/dL (70-110)
[2024-02-02] MEDS: INSULN ASP PRT/INSULIN ASPART 100 UNIT/ML 10 ML VIAL SQ SCH (17:59)
[2024-02-02] MEDS: INSULIN ASPART (NovoLOG) 100 UNIT/ML VIAL SQ SCH (18:00)
[2024-02-02 20:09] LABS: Glucose,Whole Blood 340 mg/dL (70-110)
--- NOTE | 2024-02-02 22:15 | P.PN ---
Subjective This is a pleasant 28 years old female with past medical history of diabetes mellitus she was on insulin and metformin at home suspicious for type 2 diabetes mellitus but her presentation goes more with type I. Patient states that recently she is lost her insurance last June and she has difficulty paying for her medication. At home she takes Lantus 40 units at home and 10 units with meal plus sliding scale. She was now taking her insulin spor adically and she is not very adherent to it. She presents because of nausea and vomiting, she could not hold anything down since yesterday No blood in the vomit She has some abdominal pain but improved now. No bowel movement for the last 3 to 5 days She denies urinary problem, no chest pain or dyspnea or dizziness or headache, no weakness or numbness Patient states that she was diagnosed with stroke in July 2020, this made her speech slow a little bit since then. She is supposed to take aspirin at home but she misses few doses. Probably because of similar insurance problems. She is afebrile, blood pressure stable, she is tachycardic with heart rate about 122 CBC is reviewed showing mild leukocytosis about 12,000, could be also hemoconcentration Carbon dioxide is low less than 5, anion gap was elevated and unable to calculate per System Liver enzymes, INR troponin were unremarkable Serum hCG is negative Acetone is positive EKG showing a sinus tachycardia at [address]-T changes. With some low voltage and some lites She is currently getting insulin drip. At [facility] glucose was elevated 472. Patient was transferred from [facility] to this facility 02/01 Patient anion gap closed today and sodium bicarb went up above 18 so insulin drip was discontinued but total evening. I discussed with the patient to switch her expensive insulin with another form of 70: 30 insulin as she may obtain it at a cheaper vega and she cannot afford it, patient agrees. We are going to start about 30 units in the morning and 1 units at night and gradually increase it. Possible discharge in 24 to 48 hours once her sugar is controlled. Other than that her symptoms of abdominal pain is improved and patient agrees that well now. Objective - Vital Signs Vital signs: Vital Signs Temp 98.5 F 02/02/24 16:00 Pulse 87 02/02/24 16:00 Resp 16 02/02/24 16:00 BP 118/74 02/02/24 16:00 Pulse Ox 100 10/16/24 16:00 FiO2 Intake & Output 02/02/24 02/02/24 02/03/24 06:59 18:59 06:59 Intake Total 1766.811 318 Balance 1766.811 318 Weight 135.4 kg 135.4 kg Intake: IV 1650 Dextrose 5%-0.45% NaCl 1, 1650 000 ml @ 150 mls/hr IV . Q7H20M [facility] with Potassium Chloride 20 meq Rx#: [id number] Intake, IV Titration 116.811 Amount Insulin Regular 100 unit 116.811 In Sodium Chloride 0.9% 100 ml @ 0.1 UNITS/KG/HR 15.118 mls/hr IV .Q6H41M [facility] Rx#:[id number] Oral 318 Other: Voiding Method Toilet # Voids 2 3 - Exam GENERAL: The patient is alert and oriented x3, not in any acute distress. Well developed, well nourished. HEENT: Pupils are round and equally reacting to light. EOMI. No scleral icterus. No conjunctival pallor. Normocephalic, atraumatic. No pharyngeal erythema. No thyromegaly. CARDIOVASCULAR: S1 and S2 present. No murmurs, rubs, or gallops. PULMONARY: Chest is clear to auscultation, no wheezing , no crackles. ABDOMEN: Soft, nontender, nondistended, normoactive bowel sounds. No palpable o rganomegaly. MUSCULOSKELETAL: No joint swelling or deformity. EXTREMITIES: No cyanosis, clubbing, or pedal edema. NEUROLOGICAL: Gross neurological examination did not reveal any focal deficits. SKIN: No rashes. no petechiae. - Labs CBC & Chem 7: 02/02/24 06:32 02/02/24 11:35 Labs: Abnormal Lab Results - Last 24 Hours (Table) 02/01/24 02/01/24 02/01/24 Range/Units 16:27 19:12 20:04 RBC (3.80-5.40) m/uL Hgb (11.4-16.0) gm/dL Hct (34.0-46.0) % RDW (11.5-15.5) % Lymphocytes # (1.0-4.8) k/uL Sodium (137-145) mmol/L Potassium (3.5-5.1) mmol/L Chloride (98-107) mmol/L Carbon Dioxide (22-30) mmol/L BUN (7-17) mg/dL Creatinine (0.52-1.04) mg/dL Glucose (74-99) mg/dL POC Glucose (mg/dL) 240 H 270 H 262 H (70-110) mg/dL Phosphorus (2.5-4.5) mg/dL AST (14-36) U/L Total Protein (6.3-8.2) g/dL Albumin (3.5-5.0) g/dL 02/01/24 02/01/24 02/01/24 Range/Units 21:02 22:03 23:01 RBC (3.80-5.40) m/uL Hgb (11.4-16.0) gm/dL Hct (34.0-46.0) % RDW (11.5-15.5) % Lymphocytes # (1.0-4.8) k/uL Sodium (137-145) mmol/L Potassium (3.5-5.1) mmol/L Chloride (98-107) mmol/L Carbon Dioxide (22-30) mmol/L BUN (7-17) mg/dL Creatinine (0.52-1.04) mg/dL Glucose (74-99) mg/dL POC Glucose (mg/dL) 265 H 270 H 234 H (70-110) mg/dL Phosphorus (2.5-4.5) mg/dL AST (14-36) U/L Total Protein (6.3-8.2) g/dL Albumin (3.5-5.0) g/dL 02/02/24 02/02/24 02/02/24 Range/Units 00:06 01:02 02:09 RBC (3.80-5.40) m/uL Hgb (11.4-16.0) gm/dL Hct (34.0-46.0) % RDW (11.5-15.5) % Lymphocytes # (1.0-4.8) k/uL Sodium (137-145) mmol/L Potassium (3.5-5.1) mmol/L Chloride (98-107) mmol/L Carbon Dioxide (22-30) mmol/L BUN (7-17) mg/dL Creatinine (0.52-1.04) mg/dL Glucose (74-99) mg/dL POC Glucose (mg/dL) 204 H 197 H 209 H (70-110) mg/dL Phosphorus (2.5-4.5) mg/dL AST (14-36) U/L Total Protein (6.3-8.2) g/dL Albumin (3.5-5.0) g/dL 02/02/24 02/02/24 02/02/24 Range/Units 02:59 03:57 04:57 RBC (3.80-5.40) m/uL Hgb (11.4-16.0) gm/dL Hct (34.0-46.0) % RDW (11.5-15.5) % Lymphocytes # (1.0-4.8) k/uL Sodium (137-145) mmol/L Potassium (3.5-5.1) mmol/L Chloride (98-107) mmol/L Carbon Dioxide (22-30) mmol/L BUN (7-17) mg/dL Creatinine (0.52-1.04) mg/dL Glucose (74-99) mg/dL POC Glucose (mg/dL) 195 H 225 H 203 H (70-110) mg/dL Phosphorus (2.5-4.5) mg/dL AST (14-36) U/L Total Protein (6.3-8.2) g/dL Albumin (3.5-5.0) g/dL 02/02/24 02/02/24 02/02/24 Range/Units 06:06 06:32 06:32 RBC 3.73 L (3.80-5.40) m/uL Hgb 10.3 L (11.4-16.0) gm/dL Hct 33.0 L (34.0-46.0) % RDW 15.9 H (11.5-15.5) % Lymphocytes # 0.7 L (1.0-4.8) k/uL Sodium 136 L (137-145) mmol/L Potassium 3.3 L (3.5-5.1) mmol/L Chloride 112 H (98-107) mmol/L Carbon Dioxide 14 L (22-30) mmol/L BUN 5 L (7-17) mg/dL Creatinine 0.35 L (0.52-1.04) mg/dL Glucose 185 H (74-99) mg/dL POC Glucose (mg/dL) 216 H (70-110) mg/dL Phosphorus 1.5 L (2.5-4.5) mg/dL AST 38 H (14-36) U/L Total Protein 6.2 L (6.3-8.2) g/dL Albumin 3.0 L (3.5-5.0) g/dL 02/02/24 02/02/24 02/02/24 Range/Units 07:04 07:58 08:59 RBC (3.80-5.40) m/uL Hgb (11.4-16.0) gm/dL Hct (34.0-46.0) % RDW (11.5-15.5) % Lymphocytes # (1.0-4.8) k/uL Sodium (137-145) mmol/L Potassium (3.5-5.1) mmol/L Chloride (98-107) mmol/L Carbon Dioxide (22-30) mmol/L BUN (7-17) mg/dL Creatinine (0.52-1.04) mg/dL Glucose (74-99) mg/dL POC Glucose (mg/dL) 164 H 195 H 167 H (70-110) mg/dL Phosphorus (2.5-4.5) mg/dL AST (14-36) U/L Total Protein (6.3-8.2) g/dL Albumin (3.5-5.0) g/dL 02/02/24 02/02/24 02/02/24 Range/Units 10:27 11:06 11:35 RBC (3.80-5.40) m/uL Hgb (11.4-16.0) gm/dL Hct (34.0-46.0) % RDW (11.5-15.5) % Lymphocytes # (1.0-4.8) k/uL Sodium 135 L (137-145) mmol/L Potassium 3.4 L (3.5-5.1) mmol/L Chloride 109 H (98-107) mmol/L Carbon Dioxide 19 L (22-30) mmol/L BUN 4 L (7-17) mg/dL Creatinine 0.41 L (0.52-1.04) mg/dL Glucose 168 H (74-99) mg/dL POC Glucose (mg/dL) 156 H 158 H (70-110) mg/dL Phosphorus 1.6 L (2.5-4.5) mg/dL AST 40 H (14-36) U/L Total Protein 5.7 L (6.3-8.2) g/dL Albumin 2.9 L (3.5-5.0) g/dL 02/02/24 02/02/24 Range/Units 12:00 16:44 RBC (3.80-5.40) m/uL Hgb (11.4-16.0) gm/dL Hct (34.0-46.0) % RDW (11.5-15.5) % Lymphocytes # (1.0-4.8) k/uL Sodium (137-145) mmol/L Potassium (3.5-5.1) mmol/L Chloride (98-107) mmol/L Carbon Dioxide (22-30) mmol/L BUN (7-17) mg/dL Creatinine (0.52-1.04) mg/dL Glucose (74-99) mg/dL POC Glucose (mg/dL) 164 H 277 H (70-110) mg/dL Phosphorus (2.5-4.5) mg/dL AST (14-36) U/L Total Protein (6.3-8.2) g/dL Albumin (3.5-5.0) g/dL Assessment and Plan Assessment: Diabetic ketoacidosis, present on admission Diabetes mellitus with hyperglycemia Nonadherence or compliance to medication and including insulin and aspirin because of insurance problem Hypertension Hyperlipidemia Obstructive sleep apnea Morbid obesity History of stroke/TIA stating she has some speech difficulty as per patient Plan: Discontinue insulin drip Resume diet Start insulin NPH 70: 30 at 30 units in the morning 20 units at night with sliding scale and close monitoring encourage hydration abdominal pain improved and patient tolerates diet 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 Continue same treatment. Continue with symptomatic treatment. Resume home medication. Monitor labs and vitals. DVT and GI prophylaxis. Further recommendations as per clinical course of the patient DVT prophylaxis: Subcutaneous Lovenox GI Prophylaxis: Protonix Prognosis is guarded
[2024-02-03 06:17] LABS: Glucose,Whole Blood 319 mg/dL (70-110)
[2024-02-03] MEDS: INSULN ASP PRT/INSULIN ASPART 100 UNIT/ML 10 ML VIAL SQ SCH ×2 (06:39→17:35)
--- NOTE | 2024-02-03 10:36 | P.PN ---
Subjective This is a pleasant 28 years old female with past medical history of diabetes mellitus she was on insulin and metformin at home suspicious for type 2 diabetes mellitus but her presentation goes more with type I. Patient states that recently she is lost her insurance last June and she has difficulty paying for her medication. At home she takes Lantus 40 units at home and 10 units with meal plus sliding scale. She was now taking her insulin spor adically and she is not very adherent to it. She presents because of nausea and vomiting, she could not hold anything down since yesterday No blood in the vomit She has some abdominal pain but improved now. No bowel movement for the last 3 to 5 days She denies urinary problem, no chest pain or dyspnea or dizziness or headache, no weakness or numbness Patient states that she was diagnosed with stroke in July 2020, this made her speech slow a little bit since then. She is supposed to take aspirin at home but she misses few doses. Probably because of similar insurance problems. She is afebrile, blood pressure stable, she is tachycardic with heart rate about 122 CBC is reviewed showing mild leukocytosis about 12,000, could be also hemoconcentration Carbon dioxide is low less than 5, anion gap was elevated and unable to calculate per System Liver enzymes, INR troponin were unremarkable Serum hCG is negative Acetone is positive EKG showing a sinus tachycardia at [address]-T changes. With some low voltage and some lites She is currently getting insulin drip. At [facility] glucose was elevated 472. Patient was transferred from [facility] to this facility 02/01 Patient anion gap closed today and sodium bicarb went up above 18 so insulin drip was discontinued but total evening. I discussed with the patient to switch her expensive insulin with another form of 70: 30 insulin as she may obtain it at a cheaper vega and she cannot afford it, patient agrees. We are going to start about 30 units in the morning and 1 units at night and gradually increase it. Possible discharge in 24 to 48 hours once her sugar is controlled. Other than that her symptoms of abdominal pain is improved and patient agrees that well now. 02/02 Patient awake alert not in distress However she could not eat well last night, she states she does not even finish half of her meal, this morning also she does not feel like eating. She denies nausea vomiting or abdominal pain. Yesterday we started her on insulin NPH 70s: 30 at 13's in a.m. and 20 units at bedtime, this morning her sugar was elevated 319, will going to check it again and probably will going to increase her insulin dose because it is elevated despite patient not eating well. Will going to monitor her sugar and give her more insulin accordingly. Check labs today. We will keep monitoring Objective - Vital Signs Vital signs: Vital Signs Temp 98.5 F 02/03/24 08:25 Pulse 95 02/03/24 08:25 Resp 16 02/03/24 08:25 BP 133/86 02/03/24 08:25 Pulse Ox 100 02/03/24 08:25 FiO2 Intake & Output 02/02/24 02/03/24 02/03/24 18:59 06:59 18:59 Intake Total 318 Balance 318 Weight 135.4 kg 136.2 kg Intake: Oral 318 Other: Voiding Method Toilet Toilet # Voids 3 2 - Exam GENERAL: The patient is alert and oriented x3, not in any acute distress. Well developed, well nourished. HEENT: Pupils are round and equally reacting to light. EOMI. No scleral icterus. No conjunctival pallor. Normocephalic, atraumatic. No pharyngeal erythema. No th yromegaly. CARDIOVASCULAR: S1 and S2 present. No murmurs, rubs, or gallops. PULMONARY: Chest is clear to auscultation, no wheezing , no crackles. ABDOMEN: Soft, nontender, nondistended, normoactive bowel sounds. No palpable organomegaly. MUSCULOSKELETAL: No joint swelling or deformity. EXTREMITIES: No cyanosis, clubbing, or pedal edema. NEUROLOGICAL: Gross neurological examination did not reveal any focal deficits. SKIN: No rashes. no petechiae. - Labs CBC & Chem 7: 02/02/24 06:32 02/02/24 11:35 Labs: Abnormal Lab Results - Last 24 Hours (Table) 02/02/24 02/02/24 02/02/24 Range/Units 11:06 11:35 12:00 Sodium 135 L (137-145) mmol/L Potassium 3.4 L (3.5-5.1) mmol/L Chloride 109 H (98-107) mmol/L Carbon Dioxide 19 L (22-30) mmol/L BUN 4 L (7-17) mg/dL Creatinine 0.41 L (0.52-1.04) mg/dL Glucose 168 H (74-99) mg/dL POC Glucose (mg/dL) 158 H 164 H (70-110) mg/dL Phosphorus 1.6 L (2.5-4.5) mg/dL AST 40 H (14-36) U/L Total Protein 5.7 L (6.3-8.2) g/dL Albumin 2.9 L (3.5-5.0) g/dL 02/02/24 02/02/24 02/03/24 Range/Units 16:44 20:07 06:15 Sodium (137-145) mmol/L Potassium (3.5-5.1) mmol/L Chloride (98-107) mmol/L Carbon Dioxide (22-30) mmol/L BUN (7-17) mg/dL Creatinine (0.52-1.04) mg/dL Glucose (74-99) mg/dL POC Glucose (mg/dL) 277 H 340 H 319 H (70-110) mg/dL Phosphorus (2.5-4.5) mg/dL AST (14-36) U/L Total Protein (6.3-8.2) g/dL Albumin (3.5-5.0) g/dL Assessment and Plan Assessment: Diabetic ketoacidosis, present on admission Diabetes mellitus with hyperglycemia Nonadherence or compliance to medication and including insulin and aspirin because of insurance problem Hypertension Hyperlipidemia Obstructive sleep apnea Morbid obesity History of stroke/TIA stating she has some speech difficulty as per patient Plan: Discontinue insulin drip Resume diet Start insulin NPH 70: 30 at 30 units in the morning 20 units at night with sliding scale and close monitoring encourage hydration abdominal pain improved and 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 Continue same treatment. Continue with symptomatic treatment. Resume home medication. Monitor labs and vitals. DVT and GI prophylaxis. Further recommendations as per clinical course of the patient DVT prophylaxis: Subcutaneous Lovenox GI Prophylaxis: Protonix Prognosis is guarded
[2024-02-03 10:42] LABS: Glucose,Whole Blood 310 mg/dL (70-110)
[2024-02-03] MEDS: INSULN ASP PRT/INSULIN ASPART 100 UNIT/ML 10 ML VIAL SQ ONE (10:51)
[2024-02-03 11:05] LABS: Basophils % (A) 0 %; Eosinophils # (A) 0.1 k/uL (0-0.7); Eosinophils % (A) 3 %; HGB 9.7 gm/dL (11.4-16.0); Hypochromasia Marked; Lymphocytes # (A) 0.8 k/uL (1.0-4.8); Lymphocytes % (A) 26 %; MCH 27.3 pg (25.0-35.0); MCHC 31.4 g/dL (31.0-37.0); Monocytes # (A) 0.2 k/uL (0-1.0); Monocytes % (A) 5 %; Neutrophils # (A) 1.9 k/uL (1.3-7.7); Neutrophils % (A) 63 %; Platelet Count 206 k/uL (150-450); Poikilocytosis Slight; RBC 3.57 m/uL (3.80-5.40); RDW 15.6 % (11.5-15.5)
[2024-02-03 11:24] LABS: African American GFR (CKD) >90 (>60 ml/min/1.73 sqM); Anion Gap 9 mmol/L; Blood Urea Nitrogen 3 mg/dL (7-17); Calcium 8.4 mg/dL (8.4-10.2); Carbon Dioxide 19 mmol/L (22-30); Chloride 106 mmol/L (98-107); Glucose 310 mg/dL (74-99); Magnesium 1.7 mg/dL (1.6-2.3); Non-African American GFR(CKD) >90 (>60 ml/min/1.73 sqM); Potassium 3.5 mmol/L (3.5-5.1); Sodium 134 mmol/L (137-145)
[2024-02-03 16:40] LABS: Glucose,Whole Blood 281 mg/dL (70-110)
[2024-02-03 20:35] LABS: Glucose,Whole Blood 326 mg/dL (70-110)
[2024-02-04 01:39] VITALS: RESP 18
[2024-02-04 06:43] LABS: Glucose,Whole Blood 290 mg/dL (70-110)
[2024-02-04] MEDS: INSULN ASP PRT/INSULIN ASPART 100 UNIT/ML 10 ML VIAL SQ SCH (07:13)
[2024-02-04 11:45] LABS: Glucose,Whole Blood 241 mg/dL (70-110)
[2024-02-04] MEDS: metFORMIN 500 MG TAB PO SCH (12:53)
[2024-02-04 13:42] VITALS: BP 131/84; PULSE 94; TEMP 98.1
[2024-02-04 14:32] VITALS: BMI 52.1
[2024-02-04 16:54] LABS: Glucose,Whole Blood 307 mg/dL (70-110)
== END 2024-02-04 18:13 | disposition home or self-care (01) | DRG 420 ==
LOC: EC 23:05 → 3SCARD 02-01 00:10 → 4SSUR 02-03 23:53
PROVIDERS: ADMIT Hospitalist; ATTEND Hospitalist
DX: E11.10 Type 2 diabetes mellitus with ketoacidosis without coma (principal); D72.829 Elevated white blood cell count, unspecified; E66.01 Morbid (severe) obesity due to excess calories; Z68.43 Body mass index [BMI] 50.0-59.9, adult; E78.5 Hyperlipidemia, unspecified; E86.0 Dehydration; T38.3X6A Underdosing of insulin and oral hypoglycemic [antidiabetic] drugs, initial encounter; G47.33 Obstructive sleep apnea (adult) (pediatric); I10 Essential (primary) hypertension; Z79.4 Long term (current) use of insulin; Z79.84 Long term (current) use of oral hypoglycemic drugs; Z79.899 Other long term (current) drug therapy; Z86.73 Personal history of transient ischemic attack (TIA), and cerebral infarction without residual deficits; Z91.141 Patient's other noncompliance with medication regimen due to financial hardship; Z79.82 Long term (current) use of aspirin; Z88.1 Allergy status to other antibiotic agents; Z59.71 Insufficient health insurance coverage
CPT/HCPCS: 36415; 80048; 80051; 80053; 81001; 82009; 82565; 82947; 83735; 83880; 84100; 84484; 84520; 84703; 85025; 85610; 85730; 93005; 96361; 96365; 96366; 96372; 96375; 96376; 99291

== ENCOUNTER → 2024-05-22 | Outpatient (CLI) | payer BC ==
--- NOTE | 2024-05-22 09:39 | XR ---
EXAMINATION TYPE: XR foot complete RT DATE OF EXAM: 05/22/2024 9:15 AM COMPARISON: None CLINICAL INDICATION: Female, 28 years old with history of L03.031 cellulitis; PHH, pain TECHNIQUE: XR foot complete RT examined in the AP, oblique, and lateral projections. FINDINGS: Soft tissue swelling without evidence of subcutaneous gas or erosion to suggest osteomyelitis. No kai dence of any acute osseous pathology. Calcaneal Achilles enthesophyte. IMPRESSION: 1. Mild soft tissue swelling with no evidence for a cementless at this time. 2. No evidence of acute fracture [facility] Tom Flores, , 05/22/2024 9:37 AM
[2024-05-22 16:54] LABS: Basophils # (A) 0.04 X 10*3/uL (0.00-0.10); Basophils % (A) 0.9 %; Eosinophils # (A) 0.12 X 10*3/uL (0.04-0.35); Eosinophils % (A) 2.6 %; HCT 40.3 % (37.2-46.3); HGB 12.5 g/dL (12.0-15.0); Lymphocytes # (A) 1.71 X 10*3/uL (0.90-5.00); Lymphocytes % (A) 36.5 %; MCH 25.7 pg (27.0-32.0); MCV 82.8 FL (80.0-97.0); Mean Platelet Volume 10.8 FL (9.5-12.2); Monocytes # (A) 0.27 X 10*3/uL (0.20-1.00); Monocytes % (A) 5.8 %; NRBC Per 100 WBC 0 X 10*3/uL (0.00-0.01); Neutrophils # (A) 2.52 X 10*3/uL (1.80-7.70); Neutrophils % (A) 53.8 %; Platelet Count 201 X 10*3/uL (140-440); RBC 4.87 X 10*6/uL (4.10-5.20); RDW 14.6 % (11.5-14.5); WBC 4.68 X 10*3/uL (4.50-10.00)
[2024-05-22 19:13] LABS: Prealbumin 23.8 mg/dL (18.0-42.0)
[2024-05-22 20:48] LABS: ALT 22 U/L (8-44); AST 19 U/L (13-35); Albumin 4.3 g/dL (3.8-4.9); Albumin/Globulin Ratio 1.43 Ratio (1.60-3.17); Alkaline Phosphatase 49 U/L (41-126); Blood Urea Nitrogen 11.4 mg/dL (9.0-27.0); Calcium 9.5 mg/dL (8.7-10.3); Carbon Dioxide 19.8 mmol/L (21.6-31.8); Chloride 101 mmol/L (96-109); Glucose 148 mg/dL (70-110); Potassium 4.7 mmol/L (3.5-5.5); Sodium 138 mmol/L (135-145); Total Bilirubin 0.3 mg/dL (0.3-1.2); Total Protein 7.3 g/dL (6.2-8.2)
== END | disposition home or self-care (01) ==
LOC: RADXRMAIN 08:50
PROVIDERS: ATTEND Podiatrist
DX: L97.512 Non-pressure chronic ulcer of other part of right foot with fat layer exposed (principal); L03.031 Cellulitis of right toe; I10 Essential (primary) hypertension; E11.43 Type 2 diabetes mellitus with diabetic autonomic (poly)neuropathy
CPT/HCPCS: 80053; 83036; 84134; 85025